=== PATIENT | male | born 1960 | race Caucasian/White ===

== ENCOUNTER 2020-07-03 10:13 | Outpatient (REF) | payer MEDICARE, MEDICAID, SELFPAY ==
[2020-07-03 11:12] LABS: MANUAL DIFF FLAG NO
[2020-07-03 11:22] LABS: Basophils Percent Auto 0.5 % (0-2); Eosinophils Absolute Auto 0.2 X10*3/uL (0.0-0.4); Eosinophils Percent Auto 2.4 % (0-4); Hemoglobin 14.6 g/dl (14.0-18.0); Imm Gran Abs Auto 0.01 X10*3/uL (0.00-0.03); Imm Gran Pct Auto 0.2 % (0.0-0.4); Lymphocytes Absolute Auto 1.6 X10*3/uL (1.2-4.9); Lymphocytes Percent Auto 26.5 % (20-40); Mean Corpuscular HGB Conc 32.4 g/dl (31.0-36.0); Mean Corpuscular Volume 92.6 fL (80-98); Monocytes Absolute Auto 0.6 X10*3/uL (0.1-1.2); Monocytes Percent Auto 10.1 % (2-11); Neutrophils Absolute Auto 3.7 X10*3/uL (2.0-8.3); Neutrophils Percent Auto 60.3 % (45-73); Platelet Count 279 X10*3/uL (160-400); Red Blood Count 4.86 X10*6/uL (4.60-5.80); Red Cell Distribution Width 12.7 % (11.0-16.0); White Blood Count 6.2 X10*3/uL (4.8-10.8)
[2020-07-03 11:36] LABS: Estimated Average Glucose 160 mg/dL; Hemoglobin A1c % 7.2 %
[2020-07-03 12:08] LABS: Alanine Aminotransferase 12 U/L (0-40); Albumin Level 4.6 g/dL (3.5-5.0); Alkaline Phosphatase 51 U/L (39-117); Anion Gap 12 (12-20); Aspartate Amino Transferase 13 U/L (5-37); Bilirubin Total 0.6 mg/dL (0.0-1.0); Blood Urea Nitrogen 15 mg/dL (9-16); Calcium 9.4 mg/dL (8.4-10.2); Carbon Dioxide 29 mmol/L (22-29); Chloride 101 mmol/L (96-108); Cholesterol 210 mg/dL; Estimated Glomerular Filt Rate > 60; Glucose Fasting 114 mg/dL (60-99); HDL Cholesterol 56 mg/dL; LDL Cholesterol Calculated 125 mg/dl; Potassium 4.4 mmol/L (3.3-5.1); Sodium 138 mmol/L (135-145); Total Protein 8.2 g/dL (6.5-8.0); Triglycerides 146 mg/dL
[2020-07-03 12:15] LABS: Creatinine Urine 78.24 mg/dL; Microalbum/Creatinine Ratio Ur 28.1 ug/mg cr
== END 2020-07-03 10:14 | disposition home or self-care (01) ==
LOC: HO.HMGCLDS 10:13
PROVIDERS: PCP Internal Medicine; Visit Provider Internal Medicine
DX: Z00.00 Encounter for general adult medical examination without abnormal findings (principal); E11.9 Type 2 diabetes mellitus without complications
CPT/HCPCS: 36415; 80053; 80061; 82043; 83036; 85025

== ENCOUNTER → 2021-01-17 13:53 | Outpatient (BNVA) | payer MEDICARE, MEDICAID, SELFPAY | PROVIDERS: PCP Internal Medicine; Visit Provider Dietitian, Registered | DX: E11.69 Type 2 diabetes mellitus with other specified complication (principal); E66.9 Obesity, unspecified; F81.9 Developmental disorder of scholastic skills, unspecified | CPT/HCPCS: 97803 ==

== ENCOUNTER → 2021-02-28 13:38 | Outpatient (BNVA) | payer MEDICARE, MEDICAID, SELFPAY | PROVIDERS: PCP Internal Medicine; Visit Provider Dietitian, Registered | DX: E11.69 Type 2 diabetes mellitus with other specified complication (principal); E66.9 Obesity, unspecified; F81.9 Developmental disorder of scholastic skills, unspecified | CPT/HCPCS: 97803 ==

== ENCOUNTER → 2021-05-01 13:19 | Outpatient (BNVA) | payer MEDICARE, MEDICAID, SELFPAY | PROVIDERS: PCP Internal Medicine; Visit Provider Dietitian, Registered | DX: E11.69 Type 2 diabetes mellitus with other specified complication (principal); E66.9 Obesity, unspecified; Z68.33 Body mass index [BMI] 33.0-33.9, adult; F81.9 Developmental disorder of scholastic skills, unspecified; Z71.3 Dietary counseling and surveillance | CPT/HCPCS: 97803 ==

== ENCOUNTER 2021-06-08 07:43 | Outpatient (REF) | payer MEDICARE, MEDICAID, SELFPAY ==
[2021-06-08 08:08] LABS: MANUAL DIFF FLAG NO
[2021-06-08 09:29] LABS: Basophils Percent Auto 0.5 % (0-2); Eosinophils Absolute Auto 0.1 X10*3/uL (0.0-0.4); Eosinophils Percent Auto 2.4 % (0-4); Hematocrit 44.5 % (42.0-52.0); Hemoglobin 14.2 g/dl (14.0-18.0); Imm Gran Abs Auto 0.01 X10*3/uL (0.00-0.03); Imm Gran Pct Auto 0.2 % (0.0-0.4); Lymphocytes Absolute Auto 1.5 X10*3/uL (1.2-4.9); Mean Corpuscular HGB Conc 31.9 g/dl (31.0-36.0); Mean Corpuscular Hemoglobin 29.6 pg (27.0-33.0); Mean Corpuscular Volume 92.9 fL (80.0-98.0); Mean Platelet Volume 10.7 fL (9.4-12.4); Monocytes Absolute Auto 0.7 X10*3/uL (0.1-1.2); Neutrophils Absolute Auto 3.1 x10*3/uL (2.0-8.3); Neutrophils Percent Auto 55.9 % (45-73); Platelet Count 251 X10*3/uL (160-400); Red Blood Count 4.79 X10*6/uL (4.60-5.80); Red Cell Distribution Width 12.2 % (11.0-16.0); White Blood Count 5.5 X10*3/uL (4.8-10.8)
[2021-06-08 09:37] LABS: Estimated Average Glucose 289 mg/dL; Hemoglobin A1c % 11.7 %
[2021-06-08 10:06] LABS: Alanine Aminotransferase 25 U/L (0-40); Albumin Level 4.3 g/dL (3.5-5.0); Alkaline Phosphatase 53 U/L (39-117); Anion Gap 12 (12-20); Aspartate Amino Transferase 15 U/L (5-37); Bilirubin Total 0.6 mg/dL (0.0-1.0); Blood Urea Nitrogen 10 mg/dL (9-16); Calcium 9.6 mg/dL (8.4-10.2); Carbon Dioxide 30 mmol/L (22-29); Chloride 96 mmol/L (96-108); Cholesterol 188 mg/dL; Estimated Glomerular Filt Rate > 60; Glucose Fasting 286 mg/dL (60-99); HDL Cholesterol 60 mg/dL; LDL Cholesterol Calculated 113 mg/dl; Sodium 133 mmol/L (135-145); Total Protein 7.7 g/dL (6.5-8.0); Triglycerides 75 mg/dL
[2021-06-08 10:15] LABS: Prostate Specific Antigen Scr 1.18 ng/mL (<0.05-4.0); Thyroid Stimulating Hormone 2.08 uIU/mL (0.32-4.0)
== END 2021-06-08 07:44 | disposition home or self-care (01) ==
LOC: HO.LAB 07:43
PROVIDERS: PCP Internal Medicine; Visit Provider Internal Medicine
DX: Z00.00 Encounter for general adult medical examination without abnormal findings (principal); Z13.0 Encounter for screening for diseases of the blood and blood-forming organs and certain disorders involving the immune mechanism; Z12.5 Encounter for screening for malignant neoplasm of prostate; R35.1 Nocturia; E11.9 Type 2 diabetes mellitus without complications
CPT/HCPCS: 36415; 80053; 80061; 83036; 84153; 84443; 85025

== ENCOUNTER 2021-06-14 14:00 | Outpatient (REF) | payer MEDICARE, MEDICAID, SELFPAY ==
--- NOTE | ~2021-06-14 | XR_ITS ---
EXAMINATION: XR CHEST CLINICAL INFORMATION: Other specified symptoms and signs COMPARISON: Chest x-ray 07/14/2018 TECHNIQUE: Frontal view of the chest was obtained. FINDINGS: Cardiac silhouette is normal in size. The lungs are well aerated. There is no lobar consolidation. No pleural effusion or pneumothorax. No gross osseous abnormality. XR/XR chest 1V IMPRESSION: Stable examination demonstrating no acute pulmonary pathology.
== END 2021-06-14 14:01 | disposition home or self-care (01) ==
LOC: HO.XRAY 14:00
PROVIDERS: PCP Internal Medicine; Visit Provider Internal Medicine
DX: R09.89 Other specified symptoms and signs involving the circulatory and respiratory systems (principal)
CPT/HCPCS: 71045

== ENCOUNTER 2021-10-08 06:02 | Outpatient (REF) | payer MEDICARE, MEDICAID, SELFPAY ==
[2021-10-08 06:27] LABS: MANUAL DIFF FLAG NO
[2021-10-08 06:51] LABS: Basophils Percent Auto 0.2 % (0-2); Eosinophils Absolute Auto 0.1 X10*3/uL (0.0-0.4); Eosinophils Percent Auto 2.2 % (0-4); Hematocrit 44.4 % (42.0-52.0); Hemoglobin 14.5 g/dl (14.0-18.0); Imm Gran Abs Auto 0.03 X10*3/uL (0.00-0.03); Imm Gran Pct Auto 0.5 % (0.0-0.4); Lymphocytes Absolute Auto 1.9 X10*3/uL (1.2-4.9); Lymphocytes Percent Auto 32.3 % (20-40); Mean Corpuscular HGB Conc 32.7 g/dl (31.0-36.0); Mean Corpuscular Hemoglobin 30.5 pg (27.0-33.0); Mean Corpuscular Volume 93.5 fL (80.0-98.0); Monocytes Absolute Auto 0.9 X10*3/uL (0.1-1.2); Monocytes Percent Auto 14.3 % (2-11); Neutrophils Percent Auto 50.5 % (45-73); Platelet Count 260 X10*3/uL (160-400); Red Blood Count 4.75 X10*6/uL (4.60-5.80); Red Cell Distribution Width 12.8 % (11.0-16.0); White Blood Count 5.9 X10*3/uL (4.8-10.8)
[2021-10-08 07:05] LABS: Estimated Average Glucose 272 mg/dL; Hemoglobin A1c % 11.1 %
[2021-10-08 07:14] LABS: Alanine Aminotransferase 29 U/L (0-40); Albumin Level 4.5 g/dL (3.5-5.0); Alkaline Phosphatase 55 U/L (39-117); Anion Gap 13 (12-20); Aspartate Amino Transferase 18 U/L (5-37); Bilirubin Total 0.5 mg/dL (0.0-1.0); Blood Urea Nitrogen 19 mg/dL (9-16); Calcium 9.3 mg/dL (8.4-10.2); Carbon Dioxide 30 mmol/L (22-29); Chloride 96 mmol/L (96-108); Cholesterol 245 mg/dL; Estimated Glomerular Filt Rate > 60; Glucose Fasting 295 mg/dL (60-99); HDL Cholesterol 57 mg/dL; LDL Cholesterol Calculated 165 mg/dl; Potassium 4.9 mmol/L (3.3-5.1); Sodium 134 mmol/L (135-145); Triglycerides 117 mg/dL
[2021-10-08 07:37] LABS: Thyroid Stimulating Hormone 3.03 uIU/mL (0.32-4.0)
== END 2021-10-08 06:03 | disposition home or self-care (01) ==
LOC: HO.LAB 06:02
PROVIDERS: PCP Internal Medicine; Visit Provider Internal Medicine
DX: Z00.00 Encounter for general adult medical examination without abnormal findings (principal); E03.9 Hypothyroidism, unspecified; E11.9 Type 2 diabetes mellitus without complications
CPT/HCPCS: 36415; 80053; 80061; 83036; 84443; 85025

== ENCOUNTER → 2021-12-12 13:02 | Outpatient (BNVA) | payer MEDICARE, MEDICAID, SELFPAY | PROVIDERS: PCP Internal Medicine; Visit Provider Dietitian, Registered | DX: E11.69 Type 2 diabetes mellitus with other specified complication (principal); E66.9 Obesity, unspecified; F81.9 Developmental disorder of scholastic skills, unspecified | CPT/HCPCS: 97803 ==

== ENCOUNTER → 2022-04-04 14:00 | Outpatient (BNVA) | payer MEDICARE, MEDICAID, SELFPAY | PROVIDERS: PCP Internal Medicine; Visit Provider Internal Medicine Endocrinology, Diabetes & Metabolism | DX: E11.69 Type 2 diabetes mellitus with other specified complication (principal); E66.9 Obesity, unspecified; E78.5 Hyperlipidemia, unspecified; Z68.32 Body mass index [BMI] 32.0-32.9, adult; Z79.4 Long term (current) use of insulin; Z79.52 Long term (current) use of systemic steroids; Z79.899 Other long term (current) drug therapy | CPT/HCPCS: 82947; 83036; 99202 ==

== ENCOUNTER → 2022-07-04 13:56 | Outpatient (BNVA) | payer MEDICARE, MEDICAID, SELFPAY | PROVIDERS: PCP Internal Medicine; Visit Provider Internal Medicine Endocrinology, Diabetes & Metabolism | DX: E11.9 Type 2 diabetes mellitus without complications (principal) | CPT/HCPCS: 82947; 83036; 99212 ==

== ENCOUNTER → 2022-09-10 13:25 | Outpatient (BNVA) | payer MEDICARE, MEDICAID, SELFPAY | PROVIDERS: PCP Internal Medicine; Visit Provider Registered Nurse Diabetes Educator | DX: E11.69 Type 2 diabetes mellitus with other specified complication (principal); E66.9 Obesity, unspecified | CPT/HCPCS: 99211 ==

== ENCOUNTER 2022-09-22 14:05 | Outpatient (AMB) | payer MEDICARE, MEDICAID, SELFPAY ==
--- NOTE | 2022-09-22 14:07 | MHC.OFFVIS ---
Intake Vital Signs 09/22/22 14:08 Height 5 ft 7 in Weight 213 lb 13.574 oz BMI 33.5 BP 142/80 H Blood Pressure Location Lt brachial Position Sitting Pulse 101 H Pulse Source Pulse Oximeter Pulse Oximetry (%) 88 L Oxygen Delivery Method Room Air Intake Visit Reasons: DM Intake Note: Patient present today to follow up on Type 2 Diabetes Mellitus. Patient receives DME supplies through: Pharmacy Last Diabetic Eye exam: 04/18/2022 Last Podiatry Visit: Does not see a Double Cut Off Saw Operator Random Glucose: 164 mg/dl HgA1C: 12.1% 07/04/2022 Director Of Email Marketing Required: No Allergies No Known Allergies Allergy (Unknown, Verified 09/22/22 14:11) NOT APPLICABLE HPI HPI Comments History of Present Illness Details 62 YO M who is seen in consultation for T2DM at the request of PCP. Patient is not medically competent as accompanied by his sister and navigator Initially diagnosed with T2DM in 10 yrs . No seen endo before Was initially started on treatment with metformin. Current regimen metformin 1000 mg BID Actos 45 mg QD Basaglar 50 units Humalog correction for point care > 200 6 units, >250 8 units and>300 10 units Aleah download shows sensors active 77% of time. Average glucose is 251 with G mi of 9.3% and variability 21.5%. Glucose is in target range 6% of the time with 51% hyperglycemia and 43% very hyperglycemic and no hypoglycemia No Reports low sugars . Most recent A1C [], [down] from prior [] on []. Family history of T2DM in parents Type 2 DM . Has eyes checked yearly, last eye exam 04/2023 , denies retinopathy. Denies neuropathy, not sees podiatry. Denies nephropathy, on PENNY/ARB. . Has HLD, Not on statin. Denies CAD. Not Had diabetes education. [facility] Medical History Cognitive developmental delay COPD (chronic obstructive pulmonary disease) Diabetes mellitus Obesity Type 2 diabetes mellitus with obesity Surgical History No pertinent past surgical history Family History Mother No problems noted. Father No problems noted. Social History Housing: House Patient Tobacco Use Status: Former Tobacco user Tobacco use type: Cigarette e-Cigarette/Vaping Use: Never Used Second Hand Smoke Exposure: No service: No Current occupational status: disabled Cognitive needs: Yes Hearing needs: No Vision needs: No Physical Exam Vital Signs: Last Vital Signs Pulse 101 H 09/22/22 14:08 BP 142/80 H 09/22/22 14:08 Pulse Ox 88 L 09/22/22 14:08 Oxygen Delivery Method Room Air 09/22/22 14:08 BMI result Body Mass Index 33.5 Absence of Cushingoid features. Absence of acromegalic features. Neck exam reveals nl size thyroid about 15 gms. No thyroid nodules palpable. No carotid bruits present. Lungs CTA. Heart S1 S2, Reg R/R. No M/R/ G. Skin exam reveals absence of vitiligo or acanthosis nigricans. Abdominal exam reveals Soft NT/ND with NA BS. No organomegaly present. Neck Other: . Extrem Other: Visual exam of foot performed. No ulcerations or open lesions. No onchomycosis, no callouses.Pulses 2 + distally Sensation intact to monofilament exam. Vibratory sensation sensed is intact with 128 Hz tuning fork Assessment & Plan Assessment & Plan (1) Diabetes mellitus: Comment: same meds Code(s): E11.9 - Type 2 diabetes mellitus without complications Plan: This is 61-year-old male with history of type 2 diabetes being treated with metformin, Actos, basal and regular insulin with poor glycemic control and no known microvascular or macrovascular complications Plan is increase the Basaglar to 60 units and will start Trulicity 0.75 mg q.week and titrate as tolerated. If there is not adequate response to increase the doses of Trulicity, we may need to tighten the scale of Humalog before meals. Patient should also follow-up with the para educator. Will also recheck lipid profile and microalbumin to creatinine ratio. I went over side effects of Trulicity with the patient's sister including but not limited to nausea, vomiting and rare risk of pancreatitis. Orders: Orders Lipid Panel Today E11.9 - Type 2 diabetes mellitus without complications Microalbumin, Random (w Creat) Today E11.9 - Type 2 diabetes mellitus without complications Medications: New dulaglutide (Trulicity) 0.75 mg (0.5 mL) subcut QWEEK 2 mL 5RF Changed From insulin glargine (Basaglar KwikPen U-100 Insulin) 50 units (0.5 mL) subcut DAILY 15 mL 7RF E11.69 - Type 2 diabetes mellitus with other specified complication, E66.9 - Obesity, unspecified To insulin glargine (Basaglar KwikPen U-100 Insulin) 60 units (0.6 mL) subcut DAILY 45 mL 7RF E11.69 - Type 2 diabetes mellitus with other specified complication, E66.9 - Obesity, unspecified Coding Level of Care Code Est Pt Level 4 (93660) Diagnoses Diabetes mellitus E11.9
[2022-09-22 14:08] VITALS: BP 142/80; PULSE 101; O2SAT 88; BMI 33.5
[2022-09-22 14:19] LABS: Glucose, Whole Blood 164 mg/dL (60-115)
== END 2022-09-23 16:53 | disposition home or self-care (01) ==
PROVIDERS: PCP Internal Medicine; Visit Provider Internal Medicine Endocrinology, Diabetes & Metabolism
DX: E11.65 Type 2 diabetes mellitus with hyperglycemia (principal)
CPT/HCPCS: 99214

== ENCOUNTER → 2022-09-22 14:05 | Outpatient (BNVA) | payer MEDICARE, MEDICAID, SELFPAY | PROVIDERS: Visit Provider Internal Medicine Endocrinology, Diabetes & Metabolism | DX: E11.9 Type 2 diabetes mellitus without complications (principal); Z79.4 Long term (current) use of insulin | CPT/HCPCS: 82947; 99212 ==

== ENCOUNTER 2022-11-25 11:47 | Outpatient (AMB) | payer MEDICARE, MEDICAID, SELFPAY ==
[2022-11-25 11:52] VITALS: BP 148/84; PULSE 95; O2SAT 92; BMI 34.0
--- NOTE | 2022-11-25 11:52 | A.OFFPC_ITS ---
Vital Signs 11/25/22 11:52 Height 5 ft 7 in Weight 217 lb BMI 34.0 BP 148/84 H Blood Pressure Location Lt brachial Position Sitting Pulse 95 Pulse Source Pulse Oximeter Pulse Oximetry (%) 92 Oxygen Delivery Method Room Air Intake Visit Reasons: 6 month f/u [employer] Law Clerk: Present Accompanied by: Sister Allergies No Known Allergies Allergy (Unknown, Verified 11/25/22 11:52) NOT APPLICABLE Tobacco use date assessed: 05/23/22 Dental Screening Dental Screen Date: 11/25/22 Did you have a dental visit in the last 12 months?: Yes Did you have a dental problem in the last 6 months where you did not have access to dental care?: No Was dental information given to patient?: Patient has dentist HPI 6 month f/u HPI Details diabetes and HTN; cognitive deay; stable on rx; due for labs [facility] Medical History (Updated 11/25/22 @ 13:38 by Jose A Alves MD) Obesity Type 2 diabetes mellitus with obesity COPD (chronic obstructive pulmonary disease) Cognitive developmental delay Diabetes mellitus Surgical History No pertinent past surgical history Family History Mother No problems noted. Father No problems noted. Social History Housing: House Patient Tobacco Use Status: Former Tobacco user Tobacco use type: Cigarette e-Cigarette/Vaping Use: Never Used Second Hand Smoke Exposure: No service: No Current occupational status: disabled Cognitive needs: Yes Hearing needs: No Vision needs: No Questionnaire PHQ-9 Over the last 2 weeks, how often have you been bothered by any of the following problems? 1. Little interest or pleasure in doing things: not at all 2. Feeling down, depressed, or hopeless: several days 3. Trouble falling or staying asleep, or sleeping too much: not at all 4. Feeling tired or having little energy: not at all 5. Poor appetite or overeating: not at all 6. Feeling bad about yourself - or that you are a failure or have let yourself or your family down: not at all 7. Trouble concentrating on things, such as reading the newspaper or watching television: not at all 8. Moving or speaking so slowly that other people could have noticed. Or the opposite - being so fidgety or restless that you have been moving around a lot more than usual: not at all 9. Thoughts that you would be better off or of hurting yourself in some way: not at all Total score: 1 Depression Screening Interpretation: Negative 21065 - PHQ-9 Billing: Yes Source: Developed by Drs. Wilver Ugalde, David Finch and colleagues, with an educational foreign from [employer]. Thrive Questionnaire Date Thrive assessed: 11/25/22 I am a: Patient What is your living situation today?: I have a steady place to live Within the past 12 months, did the food you bought not last and you didn't have the money to get more?: Never true Within the past 12 months, did you worry whether your food would run out before you got money to buy more?: Never true Do you have trouble paying for medicines?: No Do you have trouble getting transportation to medical appointments?: No Do you have trouble paying your heating and electricity bill?: No Do you have trouble taking care of your child, family member or friend?: No Do you have trouble with day-to-day activities such as bathing, preparing meals, shopping, managing finances, etc.?: No Are you currently unemployed and looking for a job?: No Are you interested in more education?: No Please select the resources that you would like help with: None AUDIT C Alcohol Use Questionnaire (AUDIT-C) 1. How often do you have a drink containing alcohol?: Never 3. How often do you have six or more drinks on one occasion?: Never Total Score: 0 Score Reviewed/Action Taken: Yes VERONIQUE-7 AMB Questionnaire VERONIQUE-7 Date VERONIQUE - 7 assessed: 05/23/22 Source: Developed by Drs. Wilver Ugalde, David Finch and colleagues, with an educational foreign from [employer]. Review of Systems Const Denies chills, Denies headache(s) and Denies weight loss ENT Denies headache(s) Card Denies chest pain, Denies syncope, Denies irregular heart rhythm and Denies dyspnea Resp Denies chest congestion, Denies cough and Denies dyspnea GI Denies abdominal pain, Denies change in stool character, Denies nausea and Denies vomiting Musc Denies deformity and Denies joint swelling Neuro Denies syncope and Denies headache(s) Physical exam (Primary Care) Vital Signs: Last Vital Signs Pulse 95 11/25/22 11:52 BP 148/84 H 11/25/22 11:52 Pulse Ox 92 11/25/22 11:52 Oxygen Delivery Method Room Air 11/25/22 11:52 BMI result Body Mass Index 34.0 Tobacco/Smoking Status: Tobacco use Status Tobacco use date assessed 05/23/22 11/25/22 11:53 Patient Tobacco Use Status Former Tobacco user 11/25/22 11:53 Tobacco use type Cigarette 11/25/22 11:53 e-Cigarette/Vaping Use Never Used 11/25/22 11:53 PHQ-9: PHQ-9 Score PHQ-9: Total score 1 11/25/22 11:53 Depression Screening Interpretation: Negative Thrive Assessment: Date of Thrive Assessment Date Thrive assessed 11/25/22 11/25/22 11:53 Const General: cooperative, comfortable, no acute distress and alert Neck Neck: Yes no lymphadenopathy Thyroid: Thyroid normal Resp Effort & Inspection: normal respiratory effort Auscultation: clear to auscultation bilaterally Percussion: percussion normal Cardio Jugular venous distension: no JVD Palpation: normal PMI Rate: regular rate Rhythm: regular rhythm Heart sounds: S1 normal heart sound present and S2 normal heart sound present GI Inspection: Yes normal to inspection Palpation (GI): No hepatosplenomegaly present Skin General skin exam: no rashes or lesions noted Extrem General: Yes no clubbing, cyanosis or edema Assessment and Plan Assessment & Plan (1) Hypertension: Code(s): I10 - Essential (primary) hypertension Plan: stable; same rx (2) Cognitive developmental delay: Code(s): F81.9 - Developmental disorder of scholastic skills, unspecified Plan: stable; same rx (3) Type 2 diabetes mellitus with obesity: Code(s): E11.69 - Type 2 diabetes mellitus with other specified complication; E66.9 - Obesity, unspecified Plan: stable; do labs Coding Level of Care Code Est Pt Level 4 (59147) Diagnoses Hypertension I10 Cognitive developmental delay F81.9 Type 2 diabetes mellitus with obesity E11.69; E66.9
== END 2022-11-25 12:09 | disposition home or self-care (01) ==
PROVIDERS: PCP Internal Medicine; Visit Provider Internal Medicine
DX: I10 Essential (primary) hypertension (principal); E11.69 Type 2 diabetes mellitus with other specified complication; E66.9 Obesity, unspecified; Z68.34 Body mass index [BMI] 34.0-34.9, adult; F81.9 Developmental disorder of scholastic skills, unspecified
CPT/HCPCS: 99214

== ENCOUNTER 2023-01-03 07:27 | Outpatient (REF) | payer MEDICARE, MEDICAID, SELFPAY ==
[2023-01-03 08:46] LABS: Cholesterol 204 mg/dL (<200); HDL Cholesterol 53 mg/dL (>40); LDL Cholesterol Calculated 134 mg/dL (<100); Triglycerides 86 mg/dL (<150)
[2023-01-03 09:26] LABS: Creatinine Urine 143.46 mg/dL; Microalbum/Creatinine Ratio Ur 59.2 ug/mg cr (<30)
== END 2023-01-03 07:28 | disposition home or self-care (01) ==
LOC: HO.LAB 07:27
PROVIDERS: PCP Internal Medicine; Visit Provider Internal Medicine Endocrinology, Diabetes & Metabolism
DX: E11.9 Type 2 diabetes mellitus without complications (principal)
CPT/HCPCS: 36415; 80061; 82043; 82570

== ENCOUNTER 2023-01-06 14:00 | Outpatient (AMB) | payer MEDICARE, MEDICAID, SELFPAY ==
[2023-01-06 14:03] VITALS: BP 156/84; PULSE 105; BMI 35.4
--- NOTE | 2023-01-06 14:03 | MHC.OFFVIS ---
Intake Vital Signs 01/06/23 14:03 Height 5 ft 7 in Weight 225 lb 15.581 oz BMI 35.4 BP 156/84 H Blood Pressure Location Lt brachial Position Sitting Pulse 105 H Pulse Source Pulse Oximeter Intake Visit Reasons: f/u Type 2 DM/Confirmed Intake Note: Patient present today to follow up on Type 2 Diabetes Mellitus. Patient receives DME supplies through: [facility] Last Diabetic Eye exam: 04/17/2022 Last Podiatry Visit: Random Glucose: 189]]]]mg/dl HgA1C: 9.0% Special Needs Nanny Required: No Accompanied by: Sister Allergies No Known Allergies Allergy (Unknown, Verified 01/06/23 14:14) NOT APPLICABLE HPI HPI Comments History of Present Illness Details 62 YO M who is seen in consultation for T2DM at the request of PCP. Patient is not medically competent as accompanied by his sister and navigator Initially diagnosed with T2DM in 10 yrs . No seen endo before Was initially started on treatment with metformin. Current regimen metformin 1000 mg BID Actos 45 mg QD Basaglar 60 units Humalog correction for point care > 200 6 units, >250 8 units and>300 10 units not taking Trulicity 0.75 mg Qwkly Aleah download shows sensors active 49% of time. Average glucose is 211 and variability 24.3%. Glucose is in target range 27% of the time with 55% hyperglycemia and 18% very hyperglycemic and no hypoglycemia Pattern shows increased glucoses throughout the day with elevation post-lunch No Reports low sugars . Most recent A1C [], [down] from prior [] on []. Family history of T2DM in parents Type 2 DM . Has eyes checked yearly, last eye exam 04/2023 , denies retinopathy. Denies neuropathy, not sees podiatry. Denies nephropathy, on PENNY/ARB. . Has HLD, Not on statin. Denies CAD. Not Had diabetes education. [facility] Medical History (Updated 11/25/22 @ 13:38 by Jose A Alves MD) Obesity Type 2 diabetes mellitus with obesity COPD (chronic obstructive pulmonary disease) Cognitive developmental delay Diabetes mellitus Surgical History No pertinent past surgical history Family History Mother No problems noted. Father No problems noted. Social History Housing: House Patient Tobacco Use Status: Former Tobacco user Tobacco use type: Cigarette e-Cigarette/Vaping Use: Never Used Second Hand Smoke Exposure: No service: No Current occupational status: disabled Cognitive needs: Yes Hearing needs: No Vision needs: No Physical Exam Vital Signs: Last Vital Signs Pulse 105 H 01/06/23 14:03 BP 156/84 H 01/06/23 14:03 BMI result Body Mass Index 35.4 Absence of Cushingoid features. Absence of acromegalic features. Neck exam reveals nl size thyroid about 15 gms. No thyroid nodules palpable. No carotid bruits present. Lungs CTA. Heart S1 S2, Reg R/R. No M/R/ G. Skin exam reveals absence of vitiligo or acanthosis nigricans. Abdominal exam reveals Soft NT/ND with NA BS. No organomegaly present. Neck Other: . Extrem Other: Visual exam of foot performed. No ulcerations or open lesions. No onchomycosis, no callouses.Pulses 2 + distally Sensation intact to monofilament exam. Vibratory sensation sensed is intact with 128 Hz tuning fork Results Reviewed Results Reviewed: 01/06/23 14:09 Glucose, Whole Blood Routine Laboratory Last Values Glucose (Clinic) 189 mg/dL (60-115) H 01/06/23 14:09 Assessment & Plan Assessment & Plan (1) Diabetes mellitus: Comment: same meds Code(s): E11.9 - Type 2 diabetes mellitus without complications Plan: This is 62-year-old male with history of type 2 diabetes being treated with metformin, Actos, basal and regular insulin with poor glycemic control and no known microvascular or macrovascular complications Plan is increase the Basaglar to 70 units and increase Trulicity to 1.5 mg q.week and titrate as tolerated. Will have patient take affects amount of insulin Humalog 10 units before lunch.. Patient should also follow-up with the life skills educator. Will start atorvastatin 10 mg q.d. and recheck lipid profile in 2 months. Could consider starting an SGLT 2 inhibitor in future should she is Jardiance or Farxiga for renal protection and micro albuminuria Orders: Orders Lipid Panel 2 Months E11.9 - Type 2 diabetes mellitus without complications Medications: New dulaglutide (Trulicity) 1.5 mg (0.5 mL) subcut QWEEK 2 mL 5RF atorvastatin 10 mg PO BEDTIME 30 tabs 5RF Changed From insulin glargine (Basaglar KwikPen U-100 Insulin) 60 units (0.6 mL) subcut DAILY 45 mL 7RF E11.69 - Type 2 diabetes mellitus with other specified complication, E66.9 - Obesity, unspecified To insulin glargine (Basaglar KwikPen U-100 Insulin) 70 units (0.7 mL) subcut DAILY 45 mL 7RF E11.69 - Type 2 diabetes mellitus with other specified complication, E66.9 - Obesity, unspecified Discontinued dulaglutide (Trulicity) Discontinued Reason: Doctor's Order 0.75 mg (0.5 mL) subcut QWEEK 2 mL 5RF Coding Level of Care Code Est Pt Level 4 (61477) Diagnoses Diabetes mellitus E11.9
[2023-01-06 14:14] LABS: Glucose, Whole Blood 189 mg/dL (60-115)
== END 2023-01-06 14:22 | disposition home or self-care (01) ==
PROVIDERS: PCP Internal Medicine; Visit Provider Internal Medicine Endocrinology, Diabetes & Metabolism
DX: E11.69 Type 2 diabetes mellitus with other specified complication (principal); E66.9 Obesity, unspecified; E11.9 Type 2 diabetes mellitus without complications
CPT/HCPCS: 99214

== ENCOUNTER → 2023-01-06 14:00 | Outpatient (BNVA) | payer MEDICARE, MEDICAID, SELFPAY | PROVIDERS: PCP Internal Medicine; Visit Provider Internal Medicine Endocrinology, Diabetes & Metabolism | DX: E11.9 Type 2 diabetes mellitus without complications (principal) | CPT/HCPCS: 82947; 83036; 99212 ==

== ENCOUNTER 2023-01-27 13:28 | Outpatient (AMB) | payer MEDICARE, MEDICAID, SELFPAY ==
--- NOTE | 2023-01-27 13:53 | A.OFFVIS_ITS ---
Intake Intake Visit Reasons: DM-CONFIRMED It Project Coordinator Required: No Accompanied by: Sister Allergies No Known Allergies Allergy (Unknown, Verified 01/06/23 14:14) NOT APPLICABLE HPI Comprehensive Diabetes Asmnt Most Recent Diabetes Results: Hemoglobin A1c 6.9 % 08/24/18 Microalb/Creat Ratio 59.2 ug/mg cr (<30) H 01/03/23 Cholesterol 204 mg/dL (<200) H 01/03/23 HDL Cholesterol 53 mg/dL (>40) 01/03/23 Triglycerides 86 mg/dL (<150) 01/03/23 Creatinine 0.95 mg/dL (0.5-1.4) 10/08/21 Blood Urea Nitrogen 19 mg/dL (9-16) H 10/08/21 Sodium 134 mmol/L (135-145) L 10/08/21 Potassium 4.9 mmol/L (3.3-5.1) 10/08/21 Chloride 96 mmol/L (96-108) 10/08/21 Carbon Dioxide 30 mmol/L (22-29) H 10/08/21 Calcium 9.3 mg/dL (8.4-10.2) 10/08/21 AST 18 U/L (5-37) 10/08/21 ALT 29 U/L (0-40) 10/08/21 Total Protein 8.0 g/dL (6.5-8.0) 10/08/21 Albumin 4.5 g/dL (3.5-5.0) 10/08/21 [facility] Medical History (Updated 11/25/22 @ 13:38 by Jose A Alves MD) Obesity Type 2 diabetes mellitus with obesity COPD (chronic obstructive pulmonary disease) Cognitive developmental delay Diabetes mellitus Surgical History No pertinent past surgical history Family History Mother No problems noted. Father No problems noted. Housing: House Patient Tobacco Use Status: Former Tobacco user Tobacco use type: Cigarette e-Cigarette/Vaping Use: Never Used Second Hand Smoke Exposure: No service: No Current occupational status: disabled Cognitive needs: Yes Hearing needs: No Vision needs: No Assessment & Plan Assessment & Plan (1) Type 2 diabetes mellitus with obesity: Code(s): E11.69 - Type 2 diabetes mellitus with other specified complication; E66.9 - Obesity, unspecified Plan: Personal Continuous Glucose Monitor: Patients CGM information reviewed Reviewed patient's sensor data: Hypoglycemia: ? 0% Hyperglycemia:? 60% Time in Range:? 40% Average glucose for the last 2 weeks?199 mg/dL, patient increase Trulicity from 0.75 mg to 1.5 mg approximately 2 weeks ago. Average glucose is improved from 211 mg/dL on 01/06/2023 Patient also has increased Basaglar 70 units daily Discussed with patient and his sister recommendations for increasing physical activity to approximately 30 minutes daily in order to improve glucose numbers. Currently patient only walks 30 minutes 2 times a week. Recommended to patient his history he increase Basaglar to 75 units daily If patient begins to experience episodes of hypoglycemia go back to Basaglar 70 units daily Reviewed with patient and his sister how to use rule of 15s to treat any hypoglycemia Reviewed how to interpret trend arrows Reminded patient that to check finger sticks if symptoms do not match sensor reading. Discussed lag time between finger stick and sensor data.? Patient able to insert sensor independently at home without issue.? Patient Instructions: Drop off patient's meter in 1 month for download, and review glucose levels Follow-up with Diabetes Education nurse in 4 month Coding Level of Care Code Est Pt Level 1 (55323) Diagnoses Type 2 diabetes mellitus with obesity E11.69; E66.9
== END 2023-01-27 14:24 | disposition home or self-care (01) ==
PROVIDERS: PCP Internal Medicine; Visit Provider Registered Nurse Diabetes Educator
DX: E11.69 Type 2 diabetes mellitus with other specified complication (principal); E66.9 Obesity, unspecified

== ENCOUNTER → 2023-01-27 13:28 | Outpatient (BNVA) | payer MEDICARE, MEDICAID, SELFPAY | PROVIDERS: PCP Internal Medicine; Visit Provider Registered Nurse Diabetes Educator | DX: E11.69 Type 2 diabetes mellitus with other specified complication (principal); E66.9 Obesity, unspecified; Z79.4 Long term (current) use of insulin | CPT/HCPCS: 99211 ==

== ENCOUNTER 2023-04-08 10:47 | Outpatient (AMB) | payer MEDICARE, MEDICAID, SELFPAY ==
[2023-04-08 10:52] VITALS: BP 130/76; PULSE 103; O2SAT 96; BMI 32.4
--- NOTE | 2023-04-08 10:52 | MHC.PC.OV ---
Vital Signs 04/08/23 10:52 Height 5 ft 7 in Weight 207 lb BMI 32.4 BP 130/76 Blood Pressure Location Lt brachial Position Sitting Pulse 103 H Pulse Source Pulse Oximeter Pulse Oximetry (%) 96 Oxygen Delivery Method Nasal Cannula Intake Visit Reasons: HDF, Severe COPD, Diabetes Toe Stapler Required: No Mortgage Loan Funder: Not Required per policy Accompanied by: Self / Same As Patient Allergies No Known Allergies Allergy (Unknown, Verified 04/08/23 10:52) NOT APPLICABLE Medication List - Last Reconciled 04/08/23 by Jose A Alves MD albuterol sulfate 2.5 mg (3 mL) inhalation Q4H PRN atorvastatin 10 mg PO BEDTIME blood sugar diagnostic (Vivid Logicuch Ultra Test strips) USE TO CHECK BLOOD SUGARS ONCE EVERY DAY blood sugar diagnostic (Vivid Logicuch Ultra Test strips) As directed twice a day blood-glucose meter (Vivid Logicuch Ultra2 Meter kit) As directed clonazepam 0.5 mg PO BID dulaglutide (Trulicity) 1.5 mg (0.5 mL) subcut QWEEK flash glucose scanning reader (Firmexyle Aleah 2 [place]) As directed flash glucose sensor (CrowdTwistStyle Aleah 2 Sensor kit) USE DIRECTED insulin glargine (Basaglar KwikPen U-100 Insulin) 70 units (0.7 mL) subcut DAILY lancets (RockeTalk Delica Lancets) As directed 3 twice a day lisinopril 10 mg PO DAILY metformin 1,000 mg PO BID 90 days nebulizers to use every 4 hours for shortness of breathe and wheezing pen needle, diabetic (BD Ultra-Fine Original Pen Needle) to use with insulin once a day pioglitazone 45 mg PO DAILY tamsulosin 0.4 mg PO BEDTIME Tobacco use date assessed: 04/08/23 Dental Screening Dental Screen Date: 04/08/23 Did you have a dental visit in the last 12 months?: Yes Did you have a dental problem in the last 6 months where you did not have access to dental care?: No Was dental information given to patient?: Patient has dentist HPI HDF, Severe COPD, Diabetes HPI Details was admitted to [facility] with COPD and now on oxygen; request pulmonary consult [facility] Medical History (Updated 11/25/22 @ 13:38 by Jose A Alves MD) Obesity Type 2 diabetes mellitus with obesity COPD (chronic obstructive pulmonary disease) Cognitive developmental delay Diabetes mellitus Surgical History No pertinent past surgical history Family History Mother No problems noted. Father No problems noted. Social History Housing: House Patient Tobacco Use Status: Former Tobacco user Tobacco use type: Cigarette e-Cigarette/Vaping Use: Never Used Second Hand Smoke Exposure: No service: No Current occupational status: disabled Cognitive needs: Yes Hearing needs: No Vision needs: No Questionnaire PHQ-9 Over the last 2 weeks, how often have you been bothered by any of the following problems? 1. Little interest or pleasure in doing things: not at all 2. Feeling down, depressed, or hopeless: several days 3. Trouble falling or staying asleep, or sleeping too much: not at all 4. Feeling tired or having little energy: not at all 5. Poor appetite or overeating: not at all 6. Feeling bad about yourself - or that you are a failure or have let yourself or your family down: not at all 7. Trouble concentrating on things, such as reading the newspaper or watching television: not at all 8. Moving or speaking so slowly that other people could have noticed. Or the opposite - being so fidgety or restless that you have been moving around a lot more than usual: not at all 9. Thoughts that you would be better off or of hurting yourself in some way: not at all Total score: 1 Depression Screening Interpretation: Negative Depression Screening Done: Yes 64314 - PHQ-9 Billing: Yes Source: Developed by Drs. Wilver Ugalde, nAdreea Poe, David Gregory and colleagues, with an educational foreign from [employer]. Thrive Questionnaire Date Thrive assessed: 04/08/23 I am a: Patient What is your living situation today?: I have a steady place to live Within the past 12 months, did the food you bought not last and you didn't have the money to get more?: Never true Within the past 12 months, did you worry whether your food would run out before you got money to buy more?: Never true Do you have trouble paying for medicines?: No Do you have trouble getting transportation to medical appointments?: No Do you have trouble paying your heating and electricity bill?: No Do you have trouble taking care of your child, family member or friend?: No Do you have trouble with day-to-day activities such as bathing, preparing meals, shopping, managing finances, etc.?: No Are you currently unemployed and looking for a job?: No Are you interested in more education?: No Please select the resources that you would like help with: None THRIVE Score: 0 AUDIT C Alcohol Use Questionnaire (AUDIT-C) 1. How often do you have a drink containing alcohol?: Never 3. How often do you have six or more drinks on one occasion?: Never Total Score: 0 Score Reviewed/Action Taken: Yes VERONIQUE-7 AMB Questionnaire VERONIQUE-7 Date VERONIQUE - 7 assessed: 04/08/23 Feeling nervous, anxious, or on edge: 0 = Not at all Not being able to stop or control worryin = Not at all Worrying too much about different things: 0 = Not at all Trouble relaxin = Not at all Being so restless that it is hard to sit still: 0 = Not at all Becoming easily annoyed or irritable: 0 = Not at all Feeling afraid as if something awful might happen: 0 = Not at all Total VERONIQUE-7 score (0-4 normal; 5-9 mild; 10-14 moderate; 15-21 severe): 0 Source: Developed by Drs. Wilver Ugalde, Andreea Poe, David Gregory and colleagues, with an educational foreign from [employer]. Review of Systems Const Denies chills, Denies headache(s) and Denies weight loss ENT Denies headache(s) Card Denies chest pain, Denies syncope, Denies irregular heart rhythm and Denies dyspnea Resp Denies chest congestion, Denies cough and Denies dyspnea GI Denies abdominal pain, Denies change in stool character, Denies nausea and Denies vomiting Musc Denies deformity and Denies joint swelling Neuro Denies syncope and Denies headache(s) Physical exam (Primary Care) Vital Signs: Last Vital Signs Pulse 103 H 04/08/23 10:52 BP 130/76 04/08/23 10:52 Pulse Ox 96 04/08/23 10:52 Oxygen Delivery Method Nasal Cannula 04/08/23 10:52 BMI result Body Mass Index 32.4 Tobacco/Smoking Status: Tobacco use Status Tobacco use date assessed 04/08/23 04/08/23 10:59 Patient Tobacco Use Status Former Tobacco user 04/08/23 10:59 Tobacco use type Cigarette 04/08/23 10:59 e-Cigarette/Vaping Use Never Used 04/08/23 10:59 PHQ-9: PHQ-9 Score PHQ-9: Total score 1 04/08/23 10:59 Depression Screening Interpretation: Negative Thrive Assessment: Date of Thrive Assessment Date Thrive assessed 04/08/23 04/08/23 10:59 Const General: cooperative, comfortable, no acute distress and alert Neck Neck: Yes no lymphadenopathy Thyroid: Thyroid normal Resp Effort & Inspection: normal respiratory effort Auscultation: clear to auscultation bilaterally Percussion: percussion normal Cardio Jugular venous distension: no JVD Palpation: normal PMI Rate: regular rate Rhythm: regular rhythm Heart sounds: S1 normal heart sound present and S2 normal heart sound present GI Inspection: Yes normal to inspection Palpation (GI): No hepatosplenomegaly present Skin General skin exam: no rashes or lesions noted Extrem General: Yes no clubbing, cyanosis or edema Assessment and Plan Assessment & Plan (1) Type 2 diabetes mellitus with obesity: Code(s): E11.69 - Type 2 diabetes mellitus with other specified complication; E66.9 - Obesity, unspecified Plan: stable; same rx (2) COPD exacerbation: Code(s): J44.1 - Chronic obstructive pulmonary disease with (acute) exacerbation Plan: same rx (3) Hypertension: Code(s): I10 - Essential (primary) hypertension Plan: stable; same rx Orders: Referrals Pulmonary Medicine Referral J44.1 - Chronic obstructive pulmonary disease with (acute) exacerbation Coding Level of Care Code Est Pt Level 4 (35491) Diagnoses Type 2 diabetes mellitus with obesity E11.69; E66.9 COPD exacerbation J44.1 Hypertension I10
== END 2023-04-08 11:09 | disposition home or self-care (01) ==
PROVIDERS: PCP Internal Medicine; Visit Provider Internal Medicine
DX: E11.69 Type 2 diabetes mellitus with other specified complication (principal); J44.1 Chronic obstructive pulmonary disease with (acute) exacerbation; I10 Essential (primary) hypertension
CPT/HCPCS: 99214

== ENCOUNTER 2023-05-05 07:36 | Outpatient (REF) | payer MEDICARE, MEDICAID, SELFPAY ==
[2023-05-05 07:59] LABS: MANUAL DIFF FLAG NO
[2023-05-05 08:33] LABS: Basophils Percent Auto 0.5 % (0-2); Eosinophils Absolute Auto 0.2 X10*3/uL (0.0-0.4); Eosinophils Percent Auto 2.5 % (0-4); Hematocrit 43.3 % (42.0-52.0); Hemoglobin 13.6 g/dl (14.0-18.0); Imm Gran Abs Auto 0.04 X10*3/uL (0.00-0.03); Imm Gran Pct Auto 0.5 % (0.0-0.4); Lymphocytes Absolute Auto 1.6 X10*3/uL (1.2-4.9); Lymphocytes Percent Auto 19.5 % (20-40); Mean Corpuscular HGB Conc 31.4 g/dl (31.0-36.0); Mean Corpuscular Hemoglobin 30.2 pg (27.0-33.0); Mean Corpuscular Volume 96.2 fL (80.0-98.0); Monocytes Absolute Auto 0.9 X10*3/uL (0.1-1.2); Monocytes Percent Auto 10.8 % (2-11); Neutrophils Absolute Auto 5.3 x10*3/uL (2.0-8.3); Neutrophils Percent Auto 66.2 % (45-73); Platelet Count 320 X10*3/uL (160-400); Red Cell Distribution Width 13.6 % (11.0-16.0)
[2023-05-05 08:43] LABS: Estimated Average Glucose 209 mg/dL; Hemoglobin A1c % 8.9 % (<6.0)
[2023-05-05 08:56] LABS: Alanine Aminotransferase 13 U/L (0-40); Albumin Level 4.1 g/dL (3.5-5.0); Alkaline Phosphatase 49 U/L (39-117); Anion Gap 10 (12-20); Aspartate Amino Transferase 12 U/L (5-37); Bilirubin Total 0.5 mg/dL (0.0-1.0); Blood Urea Nitrogen 15 mg/dL (9-16); Calcium 9.4 mg/dL (8.4-10.2); Carbon Dioxide 31 mmol/L (22-29); Chloride 97 mmol/L (96-108); Cholesterol 145 mg/dL (<200); Estimated Glomerular Filt Rate > 60; Glucose Fasting 282 mg/dL (60-99); HDL Cholesterol 51 mg/dL (>40); LDL Cholesterol Calculated 78 mg/dL (<100); Potassium 4.5 mmol/L (3.3-5.1); Sodium 133 mmol/L (135-145); Total Protein 8.3 g/dL (6.5-8.0); Triglycerides 81 mg/dL (<150)
[2023-05-05 08:58] LABS: Creatinine Urine 153.45 mg/dL
== END 2023-05-05 07:37 | disposition home or self-care (01) ==
LOC: HO.LAB 07:36
PROVIDERS: PCP Internal Medicine; Visit Provider Internal Medicine Endocrinology, Diabetes & Metabolism
DX: E11.69 Type 2 diabetes mellitus with other specified complication (principal); E11.65 Type 2 diabetes mellitus with hyperglycemia; E66.01 Morbid (severe) obesity due to excess calories; D64.9 Anemia, unspecified; N28.9 Disorder of kidney and ureter, unspecified; E78.5 Hyperlipidemia, unspecified
CPT/HCPCS: 36415; 80053; 80061; 82043; 82570; 83036; 85025

== ENCOUNTER 2023-05-07 14:34 | Outpatient (AMB) | payer MEDICARE, MEDICAID, SELFPAY ==
--- NOTE | 2023-05-07 14:35 | A.OFFVIS_ITS ---
Intake Vital Signs 05/07/23 14:36 Height 5 ft 7 in Weight 219 lb 5.759 oz BMI 34.4 BP 170/90 H Blood Pressure Location Lt brachial Position Sitting Pulse 124 H Pulse Source Pulse Oximeter Intake Visit Reasons: DM Intake Note: Patient presents today to follow up on D2MT. Last Diabetic Eye exam: 2022 Last Podiatry Visit:Doesn't have one Random Glucose: 329 mg/dl HgA1c: 8.9% 05/05/23 Senior Accountant Cpa Required: No Accompanied by: Sponsored Dependent Allergies No Known Allergies Allergy (Unknown, Verified 04/08/23 10:52) NOT APPLICABLE Medication List - Last Reconciled 05/07/23 by Wilver Lugo MD albuterol sulfate 2.5 mg (3 mL) inhalation Q4H PRN atorvastatin 10 mg PO BEDTIME blood sugar diagnostic (OneTouch Ultra Test strips) USE TO CHECK BLOOD SUGARS ONCE EVERY DAY blood sugar diagnostic (OneTouch Ultra Test strips) As directed twice a day blood-glucose meter (boldUnderline. llcuch Ultra2 Meter kit) As directed clonazepam 0.5 mg PO BID dulaglutide (Trulicity) 1.5 mg (0.5 mL) subcut QWEEK flash glucose scanning reader (Karmayle Aleah 2 [place]) As directed flash glucose sensor (WibkiStyle Aleah 2 Sensor kit) USE DIRECTED lancets (Celery Delica Lancets) As directed 3 twice a day Lantus Solostar U-100 Insulin (insulin glargine) 70 units (0.7 mL) subcut DAILY NS lisinopril 10 mg PO DAILY metformin 1,000 mg PO BID 90 days nebulizers to use every 4 hours for shortness of breathe and wheezing pen needle, diabetic (BD Ultra-Fine Original Pen Needle) to use with insulin once a day pioglitazone 45 mg PO DAILY tamsulosin 0.4 mg PO BEDTIME HPI HPI Comments History of Present Illness Details 62 YO M who is seen in consultation for T2DM at the request of PCP. Patient is not medically competent as accompanied by his sister and navigator Initially diagnosed with T2DM in 10 yrs . No seen endo before Was initially started on treatment with metformin. Current regimen metformin 1000 mg BID Actos 45 mg QD Basaglar 75 units Humalog correction for point care > 200 6 units, >250 8 units and>300 10 units not taking Trulicity 1.5 mg Qwkly Ran out of Aleah sensors and strips so was not checking No Reports low sugars . Most recent A1C [], [down] from prior [] on []. Family history of T2DM in parents Type 2 DM . Has eyes checked yearly, last eye exam 04/2023 , denies retinopathy. Denies neuropathy, not sees podiatry. Denies nephropathy, on PENNY/ARB. . Has HLD, Not on statin. Denies CAD. Not Had diabetes education. [facility] Medical History (Updated 11/25/22 @ 13:38 by Jose A Alves MD) Obesity Type 2 diabetes mellitus with obesity COPD (chronic obstructive pulmonary disease) Cognitive developmental delay Diabetes mellitus Surgical History No pertinent past surgical history Family History Mother No problems noted. Father No problems noted. Social History Housing: House Patient Tobacco Use Status: Former Tobacco user Tobacco use type: Cigarette e-Cigarette/Vaping Use: Never Used Second Hand Smoke Exposure: No service: No Current occupational status: disabled Cognitive needs: Yes Hearing needs: No Vision needs: No Physical Exam Vital Signs: Last Vital Signs Pulse 124 H 05/07/23 14:36 BP 170/90 H 05/07/23 14:36 BMI result Body Mass Index 34.4 Absence of Cushingoid features. Absence of acromegalic features. Neck exam reve als nl size thyroid about 15 gms. No thyroid nodules palpable. No carotid bruits present. Lungs CTA. Heart S1 S2, Reg R/R. No M/R/ G. Skin exam reveals absence of vitiligo or acanthosis nigricans. Abdominal exam reveals Soft NT/ND with NA BS. No organomegaly present. Neck Other: . Extrem Other: Visual exam of foot performed. No ulcerations or open lesions. No onchomycosis, no callouses.Pulses 2 + distally Sensation intact to monofilament exam. Vibratory sensation sensed is intact with 128 Hz tuning fork Assessment & Plan Assessment & Plan (1) Diabetes mellitus: Comment: same meds Code(s): E11.9 - Type 2 diabetes mellitus without complications Plan: This is 62-year-old male with history of type 2 diabetes being treated with metformin, Actos, trulicity basal and regular insulin with poor glycemic control and no known microvascular or macrovascular complications Plan is reinitiate the Aleah. Patient should also follow-up with the family life educator. Once we have more data, med can adjust insulin regimen Could consider starting an SGLT 2 inhibitor in future should she is Jardiance or Farxiga for renal protection and micro albuminuria but will wait for somewhat better control prior to doing so Coding Level of Care Code Est Pt Level 4 (15359) Diagnoses Diabetes mellitus E11.9
[2023-05-07 14:36] VITALS: BP 170/90; PULSE 124; BMI 34.4
[2023-05-07 14:49] LABS: Glucose, Whole Blood 329 mg/dL (60-115)
== END 2023-05-07 15:05 | disposition home or self-care (01) ==
PROVIDERS: PCP Internal Medicine; Visit Provider Internal Medicine Endocrinology, Diabetes & Metabolism
DX: E11.9 Type 2 diabetes mellitus without complications (principal)
CPT/HCPCS: 99214

== ENCOUNTER → 2023-05-07 14:34 | Outpatient (BNVA) | payer MEDICARE, MEDICAID, SELFPAY | PROVIDERS: PCP Internal Medicine; Visit Provider Internal Medicine Endocrinology, Diabetes & Metabolism | DX: E11.65 Type 2 diabetes mellitus with hyperglycemia (principal); Z79.84 Long term (current) use of oral hypoglycemic drugs; Z79.4 Long term (current) use of insulin; Z79.85 Long-term (current) use of injectable non-insulin antidiabetic drugs | CPT/HCPCS: 82947; 99212 ==

== ENCOUNTER 2023-05-18 14:33 | Outpatient (AMB) | payer MEDICARE, MEDICAID, SELFPAY ==
[2023-05-18 14:35] VITALS: BP 140/78; PULSE 96; O2SAT 98; BMI 34.2
--- NOTE | 2023-05-18 14:35 | A.OFFVIS_ITS ---
Intake Vital Signs 05/18/23 14:35 Height 5 ft 7 in Weight 218 lb 4.122 oz BMI 34.2 BP 140/78 H Blood Pressure Location Lt brachial Position Sitting Pulse 96 Pulse Source Pulse Oximeter Pulse Oximetry (%) 98 Oxygen Delivery Method Nasal Cannula Oxygen Flow Rate 3 Intake Visit Reasons: Chronic obstructive pulmonary disease Intake Note: Patient using O2 via nasal cannula and has CPAP at home..DME from [facility] per patient's sister. Winder Helper Required: No Air Defense Artillery Officer: Air Defense Artillery Officer offered & declined Accompanied by: sister/ bottle caser Allergies No Known Allergies Allergy (Unknown, Verified 05/18/23 14:44) NOT APPLICABLE Medication List - Last Reconciled 05/18/23 by Sandi Latif LPN albuterol sulfate 2.5 mg (3 mL) inhalation Q4H PRN atorvastatin 10 mg PO BEDTIME blood sugar diagnostic (AugmentWareuch Ultra Test strips) USE TO CHECK BLOOD SUGARS ONCE EVERY DAY blood sugar diagnostic (AugmentWareuch Ultra Test strips) As directed twice a day blood-glucose meter (Context Relevant Ultra2 Meter kit) As directed clonazepam 0.5 mg PO BID dulaglutide (Trulicity) 1.5 mg (0.5 mL) subcut QWEEK flash glucose scanning reader ([employer] Aleah 2 [place]) As directed flash glucose sensor (Hemova Medicalyle Aleah 2 Sensor kit) USE DIRECTED lancets (Context Relevant Delica Lancets) As directed 3 twice a day Lantus Solostar U-100 Insulin (insulin glargine) 70 units (0.7 mL) subcut DAILY NS lisinopril 10 mg PO DAILY metformin 1,000 mg PO BID 90 days nebulizers to use every 4 hours for shortness of breathe and wheezing pen needle, diabetic (BD Ultra-Fine Original Pen Needle) to use with insulin once a day pioglitazone 45 mg PO DAILY tamsulosin 0.4 mg PO BEDTIME HPI Chronic obstructive pulmonary disease HPI Details Curry is a pleasant 62 year old male, former smoker, quit 5 years ago, with approximately 40 pack year history and underlying COPD on 2L supplemental oxygen. He was referred by PCP for pulmonary evaluation. He has a cognitive delay, lives with sister, who is present today along with Kaylee, nurse case checker. He has had approximately two COPD exacerbations per year requiring hospitalizations for acute respiratory failure with hypercapnia. He was discharged on NIV for hypercapnia, which he is unable to tolerate. His last hospitalization was at [facility] in February. He was treated with IV steroids and azithromycin as well as imaging, which is not available today. He is currently using albuterol neb PRN with suboptimal control. His sister and case checkeraudio visual manager labored breathing with any exertion and intermittent productive cough, unsure sputum color. Deny any wheezing. Denies any pertinent family history. Denies any occupational exposures. Denies any prior asthma. He receives his oxygen through [facility]. [facility] Medical History (Updated 05/19/23 @ 20:02 by Tanika Powers NP) Obesity Type 2 diabetes mellitus with obesity COPD (chronic obstructive pulmonary disease) Cognitive developmental delay Diabetes mellitus Surgical History No pertinent past surgical history Family History Mother No problems noted. Father No problems noted. Social History (Updated 05/18/23 @ 14:46 by Sandi Latif LPN) Housing: House Patient Tobacco Use Status: Former Tobacco user Tobacco use type: Cigarette e-Cigarette/Vaping Use: Never Used Second Hand Smoke Exposure: No service: No Current occupational status: disabled Cognitive needs: Yes Hearing needs: No Vision needs: No Review of Systems Const Denies chills, Denies excessive sweating, Denies fever(s) and Denies night sweats Eyes Denies dry eyes and Denies irritation ENT Reports Normal hearing present, Denies nasal congestion, Denies nasal discharge, Denies post nasal drip and Denies sore throat Card Denies chest pain, Denies chest pain at rest, Denies chest pain with activity, Denies claudication, Denies leg edema, Denies orthopnea and Denies paroxysmal nocturnal dyspnea Resp Denies chest congestion, Denies excessive phlegm production, Denies pain on inspiration, Denies pain with cough and Denies stridor Musc Denies myalgias Neuro Reports Normal hearing present Endo Denies excessive sweating Aller/Immun Denies seasonal rhinorrhea Physical Exam Vital Signs: Last Vital Signs Pulse 96 05/18/23 14:35 BP 140/78 H 05/18/23 14:35 Pulse Ox 98 05/18/23 14:35 Oxygen Delivery Method Nasal Cannula 05/18/23 14:35 Oxygen Flow Rate 3 05/18/23 14:35 BMI result Body Mass Index 34.2 Const General: cooperative, healthy appearing, comfortable, no acute distress, well developed and alert Nutritional Appearance: obese HEENT Head: Yes normal to inspection, Yes normocephalic and Yes atraumatic Ears: hearing grossly normal bilaterally and external ears normal Eyes General: appearance normal, both eyes and all related structures Eyelids: Yes eyelids normal Sclerae: sclerae normal EOM: EOMs intact bilaterally Neck Neck: Yes normal visual inspection and Yes no lymphadenopathy Lymphatic: no lymphadenopathy noted Chest Chest palpation & inspection: normal inspection of the chest Resp Effort & Inspection: normal respiratory effort, able to speak in complete sentences, no audible wheezes, no cough, no stridor, not tachypneic, no tripod positioning and no use of accessory muscles Auscultation: diminished lung sounds Cardio Jugular venous distension: no JVD Rate: regular rate Skin Other: warm, dry General skin exam: no rashes or lesions noted Neuro Cranial nerves: Yes Normal hearing present Cognition (Neuro): normal cognition Gait exam (Neuro): Normal gait present Extrem General: Yes normal to inspection, Yes capillary refill normal, Yes no clubbing, cyanosis or edema and Yes no pedal edema Psych Appearance: grossly normal and well kempt Speech and movement: Normal speech and movement present and Clear speech present Attitude: cooperative Office Procedures 6 Minute Walk Time:: 15:11 SPO2 % at rest: 92 Pulse at rest: 98 SPO2 % during excercise: 86 Pulse during excercise: 102 SPO2 % after excercise: 94 Pulse after excercise: 112 Distance in yards walked: 50 Performance Observations:: Patient walked with minimal assist for balance on level ground. Patient walked only a few yards without O2 and O2 saturation dropped to 86% with pulse of 102. O2 applied at 2L and rested. O2 saturation increased to 91% with pulse of 112. Patient was unable to maintain O2 saturation while walking..Walked approx 25 yards and O2 dropped again to 85-87%. O2 increased to 3L and saturation increased to 93% Pulse 107. Patient was able to continue walking and maintain O2 saturation 91-93%. Patient would benefit from supplemental O2 at 3L. [id number] - 6 Minute Walk Assessment & Plan Assessment & Plan (1) COPD (chronic obstructive pulmonary disease): Code(s): J44.9 - Chronic obstructive pulmonary disease, unspecified (2) History of acute respiratory failure: Code(s): Z87.09 - Personal history of other diseases of the respiratory system (3) Cognitive developmental delay: Code(s): F81.9 - Developmental disorder of scholastic skills, unspecified (4) Personal history of tobacco use: Code(s): Z87.891 - Personal history of nicotine dependence (5) On supplemental oxygen therapy: Code(s): Z99.81 - Dependence on supplemental oxygen Plan Curry's symptoms are multifactorial with contribution from pulmonary and obesity/deconditioning etiologies. Due to cognitive impairments, a PFT would be difficult to perform to evaluate severity of COPD. Will empirically treat with duoneb BID. 6MWT performed and patient requires continuous 3L supplemental oxygen. Will send for overnight oximetry to assess for noturnal hypoxemia. Will attempt to obtain prior imaging performed at [facility]. All questions were answered and patient is in agreement if plan. Will follow up in 6 weeks to assess response to duoneb, or sooner if needed. Orders: Orders AMB 6 minute walk 05/18/23 J44.1 - Chronic obstructive pulmonary disease with (acute) exacerbation Medications: New ipratropium-albuterol 0.5 mg-3 mg(2.5 mg base)/3 mL 3 mL inhalation BID PRN 180 mL 3RF wheezing Coding Level of Care Code New Pt Level 4 (37232) Diagnoses COPD (chronic obstructive pulmonary disease) J44.9 History of acute respiratory failure Z87.09 Cognitive developmental delay F81.9 Personal history of tobacco use Z87.891 On supplemental oxygen therapy Z99.81 CPT Codes Coding ([id number])
[2023-05-18 15:53] VITALS: PULSE 98; O2SAT 92
== END 2023-05-18 15:25 | disposition home or self-care (01) ==
PROVIDERS: PCP Internal Medicine; Referring Provider Internal Medicine; Visit Provider Nurse Practitioner Family
DX: J44.9 Chronic obstructive pulmonary disease, unspecified (principal); Z87.09 Personal history of other diseases of the respiratory system; Z87.891 Personal history of nicotine dependence; Z99.81 Dependence on supplemental oxygen
CPT/HCPCS: 94618; 99204

== ENCOUNTER → 2023-05-18 14:33 | Outpatient (BNVA) | payer MEDICARE, MEDICAID, SELFPAY | PROVIDERS: PCP Internal Medicine; Referring Provider Internal Medicine; Visit Provider Nurse Practitioner Family | DX: J44.9 Chronic obstructive pulmonary disease, unspecified (principal); F81.9 Developmental disorder of scholastic skills, unspecified; Z87.09 Personal history of other diseases of the respiratory system; Z87.891 Personal history of nicotine dependence; Z99.81 Dependence on supplemental oxygen | CPT/HCPCS: 94618; 99202 ==

== ENCOUNTER 2023-06-25 15:57 | Outpatient (AMB) | payer MEDICARE, MEDICAID, SELFPAY ==
--- NOTE | 2023-06-25 16:24 | A.OFFVIS_ITS ---
Intake Intake Visit Reasons: DM 30 mins Local Area Network Systems Adminstrator Required: No Accompanied by: Sister Allergies No Known Allergies Allergy (Unknown, Verified 05/18/23 14:44) NOT APPLICABLE HPI Comprehensive Diabetes Asmnt Most Recent Diabetes Results: Hemoglobin A1c 6.9 % 08/24/18 Microalb/Creat Ratio 86.0 ug/mg cr (<30) H 05/05/23 Cholesterol 145 mg/dL (<200) 05/05/23 HDL Cholesterol 51 mg/dL (>40) 05/05/23 Triglycerides 81 mg/dL (<150) 05/05/23 Creatinine 0.84 mg/dL (0.5-1.4) 05/05/23 Blood Urea Nitrogen 15 mg/dL (9-16) 05/05/23 Sodium 133 mmol/L (135-145) L 05/05/23 Potassium 4.5 mmol/L (3.3-5.1) 05/05/23 Chloride 97 mmol/L (96-108) 05/05/23 Carbon Dioxide 31 mmol/L (22-29) H 05/05/23 Calcium 9.4 mg/dL (8.4-10.2) 05/05/23 AST 12 U/L (5-37) 05/05/23 ALT 13 U/L (0-40) 05/05/23 Total Protein 8.3 g/dL (6.5-8.0) H 05/05/23 Albumin 4.1 g/dL (3.5-5.0) 05/05/23 [facility] Medical History (Updated 05/19/23 @ 20:02 by Tanika Powers NP) Obesity Type 2 diabetes mellitus with obesity COPD (chronic obstructive pulmonary disease) Cognitive developmental delay Diabetes mellitus Surgical History No pertinent past surgical history Family History Mother No problems noted. Father No problems noted. Social History (Updated 05/18/23 @ 14:46 by Sandi Latif LPN) Housing: House Patient Tobacco Use Status: Former Tobacco user Tobacco use type: Cigarette e-Cigarette/Vaping Use: Never Used Second Hand Smoke Exposure: No service: No Current occupational status: disabled Cognitive needs: Yes Hearing needs: No Vision needs: No Assessment & Plan Assessment & Plan (1) Type 2 diabetes mellitus with obesity: Code(s): E11.69 - Type 2 diabetes mellitus with other specified complication; E66.9 - Obesity, unspecified Plan: Personal Continuous Glucose Monitor: Patients CGM information reviewed Reviewed patient's sensor data: Hypoglycemia: ? 0% Hyperglycemia:? 40% Time in Range:? 60% Average glucose for the last 2 weeks? 180 mg/dL Patient's last A1c 8.9% on 05/05/2023 Reviewed with patient and his sister target goals for A1c Patient's sister asked about drinking alcohol, with diabetes. Instructed patient and his sister about effects of alcohol in relationship to insulin, and hypoglycemia. Discuss the importance of eating complex carbohydrate meals and snacks along with alcohol, to try and prevent hypoglycemia Reviewed how to interpret trend arrows Reminded patient that to check finger sticks if symptoms do not match sensor reading. Discussed lag time between finger stick and sensor data.? Patient able to insert sensor independently at home without issue.? Patient will follow-up with Diabetes Education nurse in 4 months Coding Level of Care Code Est Pt Level 1 (80335) Diagnoses Type 2 diabetes mellitus with obesity E11.69; E66.9
== END 2023-06-25 16:26 | disposition home or self-care (01) ==
PROVIDERS: PCP Internal Medicine; Visit Provider Registered Nurse Diabetes Educator
DX: E11.69 Type 2 diabetes mellitus with other specified complication (principal); E66.9 Obesity, unspecified

== ENCOUNTER → 2023-06-25 15:57 | Outpatient (BNVA) | payer MEDICARE, MEDICAID, SELFPAY | PROVIDERS: PCP Internal Medicine; Visit Provider Registered Nurse Diabetes Educator | DX: E11.69 Type 2 diabetes mellitus with other specified complication (principal); E66.9 Obesity, unspecified | CPT/HCPCS: 99211 ==

== ENCOUNTER 2023-07-13 14:57 | Outpatient (AMB) | payer MEDICARE, MEDICAID, SELFPAY ==
[2023-07-13 15:02] VITALS: BP 114/80; PULSE 96; O2SAT 96; BMI 33.8
--- NOTE | 2023-07-13 15:02 | MHC.OFFVIS ---
Vital Signs 07/13/23 15:02 Height 5 ft 7 in Weight 216 lb 0.848 oz BMI 33.8 BP 114/80 Blood Pressure Location Lt brachial Position Sitting Pulse 96 Pulse Source Pulse Oximeter Pulse Oximetry (%) 96 Oxygen Delivery Method Room Air Intake Visit Reasons: Chronic obstructive pulmonary disease Tar Roofer: Tar Roofer Present Accompanied by: Sister Allergies No Known Allergies Allergy (Unknown, Verified 07/13/23 15:05) NOT APPLICABLE HPI HPI Chronic obstructive pulmonary disease: Details: Curry is a pleasant 62 year old male, former smoker, quit 5 years ago, with approximately 40 pack year history and underlying COPD on 2L supplemental oxygen. He has a cognitive delay, lives with sister Mariam, who is present today along with Kaylee, nurse correctional casework specialist. He has had approximately two COPD exacerbations per year requiring hospitalizations for acute respiratory failure with hypercapnia. He was discharged on NIV for hypercapnia, which he is unable to tolerate. His last hospitalization was at [facility] in February. He was treated with IV steroids and azithromycin as well as imaging, which revealed increased interstitial markings. No prior chest CT. At the last visit, he was started on duoneb BID with good control of symptoms. Denies any cough, wheezing or labored breathing. Caregivers have been checking oxygen saturation with no findings of <94%. [facility] Medical History (Updated 07/13/23 @ 15:39 by Tanika Powers NP) Obesity Type 2 diabetes mellitus with obesity COPD (chronic obstructive pulmonary disease) Cognitive developmental delay Diabetes mellitus Surgical History No pertinent past surgical history Family History Mother No problems noted. Father No problems noted. Social History Housing: House Patient Tobacco Use Status: Former Tobacco user Tobacco use type: Cigarette e-Cigarette/Vaping Use: Never Used Second Hand Smoke Exposure: No service: No Current occupational status: disabled Cognitive needs: Yes Hearing needs: No Vision needs: No Review of Systems Const Denies chills, Denies excessive sweating, Denies fever(s) and Denies night sweats Eyes Denies dry eyes and Denies irritation ENT Reports Normal hearing present, Denies nasal congestion, Denies nasal discharge, Denies post nasal drip and Denies sore throat Card Denies chest pain, Denies chest pain at rest, Denies chest pain with activity, Denies claudication, Denies leg edema, Denies orthopnea and Denies paroxysmal nocturnal dyspnea Resp Denies chest congestion, Denies cough, Denies excessive phlegm production, Denies pain on inspiration, Denies pain with cough, Denies stridor and Denies wheezing Musc Denies myalgias Neuro Reports Normal hearing present Endo Denies excessive sweating Aller/Immun Denies seasonal rhinorrhea and Denies wheezing Physical Exam Vital Signs: Last Vital Signs Pulse 96 07/13/23 15:02 BP 114/80 07/13/23 15:02 Pulse Ox 96 07/13/23 15:02 Oxygen Delivery Method Room Air 07/13/23 15:02 BMI result Body Mass Index 33.8 Const General: cooperative, healthy appearing, comfortable, no acute distress, well developed and alert Nutritional Appearance: obese HEENT Head: Yes normal to inspection, Yes normocephalic and Yes atraumatic Ears: hearing grossly normal bilaterally and external ears normal Eyes General: appearance normal, both eyes and all related structures Eyelids: Yes eyelids normal Sclerae: sclerae normal EOM: EOMs intact bilaterally Neck Neck: Yes normal visual inspection and Yes no lymphadenopathy Lymphatic: no lymphadenopathy noted Chest Chest palpation & inspection: normal inspection of the chest Resp Effort & Inspection: normal respiratory effort, able to speak in complete sentences, no audible wheezes, no cough, no stridor, not tachypneic, no tripod positioning and no use of accessory muscles Auscultation: diminished lung sounds Cardio Jugular venous distension: no JVD Rate: regular rate Skin Other: warm, dry General skin exam: no rashes or lesions noted Neuro Cranial nerves: Yes Normal hearing present Cognition (Neuro): normal cognition Gait exam (Neuro): Normal gait present Extrem General: Yes normal to inspection, Yes capillary refill normal, Yes no clubbing, cyanosis or edema and Yes no pedal edema Psych Appearance: grossly normal and well kempt Speech and movement: Normal speech and movement present and Clear speech present Attitude: cooperative Office Procedures 6 Minute Walk Time:: 15:31 SPO2 % at rest: 94 Pulse at rest: 96 SPO2 % during excercise: 86 Pulse during excercise: 112 SPO2 % after excercise: 93 Pulse after excercise: 110 Distance in yards walked: 150 Performance Observations:: Patient walked unassisted on level ground at moderate pace. After 2 minutes O2 saturation dropped to 86% with pulse of 112. O2 applied at 1L via nasal cannula and rested..O2 sat maintained for the remainder of the walk between 91-92% with pulse rate from 110-112. Patient would benefit from supplemental oxygen. [id number] - 6 Minute Walk Results Reviewed Results Reviewed: Assessment & Plan Assessment & Plan (1) COPD (chronic obstructive pulmonary disease): Code(s): J44.9 - Chronic obstructive pulmonary disease, unspecified Category: Medical (2) History of acute respiratory failure: Code(s): Z87.09 - Personal history of other diseases of the respiratory system Category: Medical (3) Cognitive developmental delay: Code(s): F81.9 - Developmental disorder of scholastic skills, unspecified Category: Medical (4) Personal history of tobacco use: Code(s): Z87.891 - Personal history of nicotine dependence Category: Social Hx (5) On supplemental oxygen therapy: Code(s): Z99.81 - Dependence on supplemental oxygen Category: Medical Plan Sister reports improvements in respiratory symptoms overall since initiating duoneb. Advised to continue. Patient has been maintaining oxygen saturation >94% on room air at rest, and has been using supplemental oxygen less frequently. At the last visit he required 3 L of supplemental oxygen. 6MWT performed today and patient continues to require 1-2L with exertion. Discussed with patient and caregivers. Will send overnight oximetry on room air today to [facility] to be performed. Reviewed prior CXR and will send for chest CT to assess for ILD given findings of bibasilar interstitial opacities. All questions were answered and patient is in agreement if plan. Will follow up to review results or sooner if needed. Orders: Orders Overnight Pulse Oximetry Today G47.34 - Idiopathic sleep related nonobstructive alveolar hypoventilation AMB 6 minute walk Today J44.1 - Chronic obstructive pulmonary disease with (acute) exacerbation CT chest wo IV con Today R93.89 - Abnormal findings on diagnostic imaging of other specified body structures Coding Level of Care Code Est Pt Level 4 (94579) Diagnoses COPD (chronic obstructive pulmonary disease) J44.9 History of acute respiratory failure Z87.09 Cognitive developmental delay F81.9 Personal history of tobacco use Z87.891 On supplemental oxygen therapy Z99.81 CPT Codes Coding ([id number])
[2023-07-13 15:50] VITALS: PULSE 96; O2SAT 94
== END 2023-07-13 15:51 | disposition home or self-care (01) ==
PROVIDERS: PCP Internal Medicine; Visit Provider Nurse Practitioner Family
DX: J44.9 Chronic obstructive pulmonary disease, unspecified (principal); Z87.09 Personal history of other diseases of the respiratory system; F81.9 Developmental disorder of scholastic skills, unspecified; Z87.891 Personal history of nicotine dependence; Z99.81 Dependence on supplemental oxygen
CPT/HCPCS: 94618; 99214

== ENCOUNTER → 2023-07-13 14:57 | Outpatient (BNVA) | payer MEDICARE, MEDICAID, SELFPAY | PROVIDERS: PCP Internal Medicine; Visit Provider Nurse Practitioner Family | DX: J44.9 Chronic obstructive pulmonary disease, unspecified (principal); F81.9 Developmental disorder of scholastic skills, unspecified; Z87.09 Personal history of other diseases of the respiratory system; Z87.891 Personal history of nicotine dependence; Z99.81 Dependence on supplemental oxygen | CPT/HCPCS: 94618; 99212 ==

== ENCOUNTER 2023-08-10 17:07 | Outpatient (REF) | payer MEDICARE, MEDICAID, SELFPAY ==
--- NOTE | ~2023-08-10 | CT_ITS ---
EXAMINATION: CT CHEST WITHOUT CONTRAST CLINICAL INFORMATION: Abnormal chest x-ray. COMPARISON: Chest radiograph 06/14/2021: Stable examination demonstrating no acute pulmonary pathology. CTA chest 07/25/2007 most prominent in the upper lobes anteriorly (for example 5:145). No consolidations. TECHNIQUE: Multidetector volumetric CT imaging of the chest was done. Axial MIP volume rendering provided. Sagittal and coronal reformatted images were obtained. This CT examination was performed using dose optimization techniques as appropriate, variously including the following: *Automated exposure control *Adjustment of mA and/or kV according to patient size (this includes techniques or standardized protocols for targeted exams where dose is matched to indication/reason for exam; i.e. extremities or head) *Use of iterative reconstruction technique DLP: 188 mGy-cm FINDINGS: LUNGS: Moderate emphysematous changes are seen. Diffuse bronchial thickening is present. Scattered small pulmonary nodules are seen with the largest measuring 4 mm (for example left upper lobe 5:142). Hook images of most have been saved. There is subpleural reticulation seen. No consolidation. MEDIASTINUM: The mediastinum is normal. CORONARY ARTERY CALCIFICATION: Minimal PLEURA: There is no pleural effusion. No pleural mass or thickening. AXILLA: No lymphadenopathy. UPPER ABDOMEN: Unremarkable. OSSEOUS STRUCTURES: Unremarkable. CT/CT chest wo IV con IMPRESSION: 1. Moderate emphysema with bronchial thickening. 2. Scattered small pulmonary nodules with the largest measuring 4 mm. 3. Subpleural reticulation. Findings may represent early interstitial fibrotic changes. Fleischner guidelines were followed.
== END 2023-08-10 17:08 | disposition home or self-care (01) ==
LOC: HO.CT 17:07
PROVIDERS: PCP Internal Medicine; Visit Provider Nurse Practitioner Family
DX: R93.89 Abnormal findings on diagnostic imaging of other specified body structures (principal)
CPT/HCPCS: 71250

== ENCOUNTER 2023-08-17 13:57 | Outpatient (AMB) | payer MEDICARE, MEDICAID, SELFPAY ==
--- NOTE | 2023-08-17 14:00 | MHC.PC.OV ---
Vital Signs 08/17/23 14:01 Height 5 ft 7 in Weight 215 lb BMI 33.7 BP 160/88 H Blood Pressure Location Lt brachial Position Sitting Pulse 106 H Pulse Source Pulse Oximeter Pulse Oximetry (%) 98 Oxygen Delivery Method Nasal Cannula Oxygen Flow Rate 2 Intake Visit Reasons: 3 month f/u Enterprise Systems Architect Required: No Allergies No Known Allergies Allergy (Unknown, Verified 07/13/23 15:05) NOT APPLICABLE Tobacco use date assessed: 04/08/23 Dental Screening Dental Screen Date: 04/08/23 HPI 3 month f/u HPI Details DM in fair cocntrol; due to developmental delat this is satisfactory; COUNT INCLUDES [facility] Medical History (Updated 07/13/23 @ 15:39 by Tanika Powers NP) Obesity Type 2 diabetes mellitus with obesity COPD (chronic obstructive pulmonary disease) Cognitive developmental delay Diabetes mellitus Surgical History No pertinent past surgical history Family History Mother No problems noted. Father No problems noted. Social History Housing: House Patient Tobacco Use Status: Former Tobacco user Tobacco use type: Cigarette e-Cigarette/Vaping Use: Never Used Second Hand Smoke Exposure: No service: No Current occupational status: disabled Cognitive needs: Yes Hearing needs: No Vision needs: No Questionnaire Thrive Questionnaire Date Thrive assessed: 04/08/23 VERONIQUE-7 AMB Questionnaire VERONIQUE-7 Date VERONIQUE - 7 assessed: 04/08/23 Source: Developed by Drs. Wilver Ugalde, Andreea Poe, David Gregory and colleagues, with an educational foreign from [employer]. Review of Systems Const Denies chills, Denies headache(s) and Denies weight loss ENT Denies headache(s) Card Denies chest pain, Denies syncope, Denies irregular heart rhythm and Denies dyspnea Resp Denies chest congestion, Denies cough and Denies dyspnea GI Denies abdominal pain, Denies change in stool character, Denies nausea and Denies vomiting Musc Denies deformity and Denies joint swelling Neuro Denies syncope and Denies headache(s) Physical exam (Primary Care) Vital Signs: Last Vital Signs Pulse 106 H 08/17/23 14:01 BP 160/88 H 08/17/23 14:01 Pulse Ox 98 08/17/23 14:01 Oxygen Delivery Method Nasal Cannula 08/17/23 14:01 Oxygen Flow Rate 2 08/17/23 14:01 BMI result Body Mass Index 33.7 Tobacco/Smoking Status: Tobacco use Status Tobacco use date assessed 04/08/23 08/17/23 14:01 Patient Tobacco Use Status Former Tobacco user 08/17/23 14:01 Tobacco use type Cigarette 08/17/23 14:01 e-Cigarette/Vaping Use Never Used 08/17/23 14:01 Thrive Assessment: Date of Thrive Assessment Date Thrive assessed 04/08/23 08/17/23 14:01 Const General: cooperative, comfortable, no acute distress and alert Neck Neck: Yes no lymphadenopathy Thyroid: Thyroid normal Resp Effort & Inspection: normal respiratory effort Auscultation: clear to auscultation bilaterally Percussion: percussion normal Cardio Jugular venous distension: no JVD Palpation: normal PMI Rate: regular rate Rhythm: regular rhythm Heart sounds: S1 normal heart sound present and S2 normal heart sound present GI Inspection: Yes normal to inspection Palpation (GI): No hepatosplenomegaly present Skin General skin exam: no rashes or lesions noted Extrem General: Yes no clubbing, cyanosis or edema Results AMB Hemoglobin A1c AMB Hemoglobin A1c 8.4 % Last Edit by SREEDHAR Elaien on 08/17/23 14:17 Results Reviewed Results Reviewed: Laboratory Last Values Hgb A1c (Clinic) 8.4 % (4.0-6.0) H 08/17/23 14:02 Assessment and Plan Assessment & Plan (1) Type 2 diabetes mellitus with obesity: Code(s): E11.69 - Type 2 diabetes mellitus with other specified complication; E66.9 - Obesity, unspecified Plan: stable Orders: Orders AMB Hemoglobin A1c 08/17/23 E11.69 - Type 2 diabetes mellitus with other specified complication, E66.9 - Obesity, unspecified Lipid Panel Today Z13.220 - Encounter for screening for lipoid disorders Complete Blood Count Auto Diff Today Z13.0 - Encounter for screening for diseases of the blood and blood-forming organs and certain disorders involving the immune mechanism Hemoglobin A1c Today R73.9 - Hyperglycemia, unspecified Comprehensive Badger. Panel Fast Today Z13.9 - Encounter for screening, unspecified Coding Level of Care Code Est Pt Level 3 (74792) Diagnoses Type 2 diabetes mellitus with obesity E11.69; E66.9
[2023-08-17 14:01] VITALS: BP 160/88; PULSE 106; O2SAT 98; BMI 33.7
== END 2023-08-17 14:24 | disposition home or self-care (01) ==
PROVIDERS: PCP Internal Medicine; Visit Provider Internal Medicine
DX: E11.69 Type 2 diabetes mellitus with other specified complication (principal); E66.9 Obesity, unspecified; Z68.33 Body mass index [BMI] 33.0-33.9, adult
CPT/HCPCS: 83036; 99213

== ENCOUNTER 2023-09-07 13:55 | Outpatient (AMB) | payer MEDICARE, MEDICAID, SELFPAY ==
[2023-09-07 13:56] VITALS: BP 120/82; PULSE 95; BMI 34.5
--- NOTE | 2023-09-07 13:56 | A.OFFVIS_ITS ---
Vital Signs 09/07/23 13:56 Height 5 ft 7 in Weight 220 lb 7.396 oz BMI 34.5 BP 120/82 Blood Pressure Location Rt brachial Position Sitting Pulse 95 Pulse Source Pulse Oximeter Intake Visit Reasons: DM-confirmed Intake Note: Patient present today to follow up on Type 2 Diabetes Mellitus. Last seen by Dr. Lugo 05/07/2023. 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 Last seen by Dr. Lugo 05/07/2023. Patient receives DME supplies through: [employer] Last Diabetic Eye exam: 05/02 Last Podiatry Visit: none, grand daughter assists Random Glucose: mg/dl HgA1C: 8.4% 08/17/2023 63 YO M who is seen in f/u for T2DM. Patient is not medically competent and is accompanied by his sister who cares for him. Initially diagnosed with T2DM in 10 yrs . Previously not followed by Endo Was initially started on treatment with metformin. Current regimen metformin 1000 mg BID Actos 45 mg QD Lantus 75 units Humalog correction for point care > 200 6 units, >250 8 units and>300 10 units not taking for awhile other than a few times while he was off Trulicity Trulicity 3.0 weekly Most recent A1C [8.4%], [down] from prior [8.9%] earlier this year Family history of T2DM in parents Type 2 DM . Has eyes checked yearly, last eye exam 04/2023 , denies retinopathy. Denies neuropathy, does not see podiatry. + nephropathy, on PENNY/ARB. . Has HLD, Not on statin. Denies CAD. Not Had diabetes education. [facility] Medical History Obesity Type 2 diabetes mellitus with obesity COPD (chronic obstructive pulmonary disease) Cognitive developmental delay Diabetes mellitus Surgical History No pertinent past surgical history Family History Mother No problems noted. Father No problems noted. Social History Housing: House Patient Tobacco Use Status: Former Tobacco user Tobacco use type: Cigarette e-Cigarette/Vaping Use: Never Used Second Hand Smoke Exposure: No service: No Current occupational status: disabled Cognitive needs: Yes Hearing needs: No Vision needs: No Physical Exam Vital Signs: Last Vital Signs Pulse 95 09/07/23 13:56 BP 120/82 09/07/23 13:56 BMI result Body Mass Index 34.5 Const General: cooperative Nutritional Appearance: overweight Orientation/consciousness: oriented to person Neck Neck: Yes normal visual inspection Thyroid: Thyroid normal Resp Other: using oxygen, no dyspnea Effort & Inspection: normal respiratory effort Cardio Jugular venous distension: no JVD Rate: regular rate Rhythm: regular rhythm Heart sounds: S1 normal heart sound present and S2 normal heart sound present Neuro General: oriented to person Extrem Other: Visual exam of foot performed. No ulcerations or open lesions. No onchomycosis, no callouses. Sensation intact to monofilament exam. Vibratory sensation is normal with 128 Hz tuning fork. Results Reviewed Results Reviewed: Laboratory Tests 05/05/23 05/05/23 07:51 07:55 Hemoglobin A1c % 8.9 H Calcium 9.4 AST 12 ALT 13 Triglycerides 81 Cholesterol 145 LDL Cholesterol, Calc 78 HDL Cholesterol 51 Urine Creatinine 153.45 Urine Microalbumin 132.0 Microalb/Creat Ratio 86.0 H Laboratory Tests 05/05/23 07:55 Creatinine 0.84 Estimated GFR > 60 Assessment & Plan Assessment & Plan (1) Type 2 diabetes mellitus with obesity: Code(s): E11.69 - Type 2 diabetes mellitus with other specified complication; E66.9 - Obesity, unspecified Category: Medical Plan: Diabetes medications: add sglt-2 inhibitor, both patient and his sister were counseled to keep patient hydrated and observe for potential side effects: weakness, uti, fungal infection and to notify provider if any issues. Patient has nephropathy. This may delay the progression. Reduce Lantus to 70 units when starting jardiance but can increase back up if numbers above target metformin 1000 mg BID Actos 45 mg QD Lantus 75 units Humalog correction for point care > 200 6 units, >250 8 units and>300 10 units Jardiance 10mg daily (2) Nephropathy: Code(s): N28.9 - Disorder of kidney and ureter, unspecified Category: Medical Plan: as above start sglt-2 inhibitor Coding Level of Care Code Est Pt Level 4 (61922) Diagnoses Type 2 diabetes mellitus with obesity E11.69; E66.9 Nephropathy N28.9 Time Spent (min) 45 Comment spent in lab and chart review, glucose sensor review, face to face and documenting
[2023-09-07 14:12] LABS: Glucose, Whole Blood 196 mg/dL (60-115)
== END 2023-09-07 14:29 | disposition home or self-care (01) ==
PROVIDERS: PCP Internal Medicine; Visit Provider Nurse Practitioner Adult Health
DX: E11.69 Type 2 diabetes mellitus with other specified complication (principal); E66.9 Obesity, unspecified; N28.9 Disorder of kidney and ureter, unspecified
CPT/HCPCS: 99214

== ENCOUNTER → 2023-09-07 13:55 | Outpatient (BNVA) | payer MEDICARE, MEDICAID, SELFPAY | PROVIDERS: PCP Internal Medicine; Visit Provider Nurse Practitioner Adult Health | DX: E11.69 Type 2 diabetes mellitus with other specified complication (principal); E66.9 Obesity, unspecified; N28.9 Disorder of kidney and ureter, unspecified; Z79.84 Long term (current) use of oral hypoglycemic drugs | CPT/HCPCS: 82947; 99212 ==

== ENCOUNTER 2023-09-28 14:58 | Outpatient (AMB) | payer MEDICARE, MEDICAID, SELFPAY ==
[2023-09-28 15:07] VITALS: BP 120/74; PULSE 101; O2SAT 97; BMI 33.5
--- NOTE | 2023-09-28 15:07 | A.OFFVIS_ITS ---
Vital Signs 09/28/23 15:07 Height 5 ft 7 in Weight 213 lb 13.574 oz BMI 33.5 BP 120/74 Blood Pressure Location Rt brachial Position Sitting Pulse 101 H Pulse Source Pulse Oximeter Pulse Oximetry (%) 97 Oxygen Delivery Method Nasal Cannula Oxygen Flow Rate 2 Intake Visit Reasons: COPD Allergies No Known Allergies Allergy (Unknown, Verified 09/28/23 15:11) NOT APPLICABLE HPI HPI COPD: Details: Curry is a pleasant 63 year old male, former smoker, quit 5 years ago, with approximately 40 pack year history and underlying COPD on 2L supplemental oxygen. He has a cognitive delay, lives with sister Mariam, who is present today. He has had approximately two COPD exacerbations per year requiring hospitalizations for acute respiratory failure with hypercapnia. He was discharged on NIV for hypercapnia, which he is unable to tolerate. His last hospitalization was at [facility] in February. He was treated with IV steroids and azithromycin as well as imaging, which revealed increased interstitial markings. Today he presents to review chest CT as well as overnight oximetry. He denies any hospitalizations or visits to urgent care since the last visit. He has been using duoneb BID with good control of symptoms. Denies any cough, wheezing or labored breathing. Caregivers have been checking oxygen saturation with no findings of <92%. [facility] Medical History Obesity Type 2 diabetes mellitus with obesity COPD (chronic obstructive pulmonary disease) Cognitive developmental delay Diabetes mellitus Surgical History No pertinent past surgical history Family History Mother No problems noted. Father No problems noted. Social History Housing: House Patient Tobacco Use Status: Former Tobacco user Tobacco use type: Cigarette e-Cigarette/Vaping Use: Never Used Second Hand Smoke Exposure: No service: No Current occupational status: disabled Cognitive needs: Yes Hearing needs: No Vision needs: No Review of Systems Const Denies chills, Denies excessive sweating, Denies fever(s) and Denies night sweats Eyes Denies dry eyes and Denies irritation ENT Reports Normal hearing present, Denies nasal congestion, Denies nasal discharge, Denies post nasal drip and Denies sore throat Card Denies chest pain, Denies chest pain at rest, Denies chest pain with activity, Denies claudication, Denies leg edema, Denies orthopnea and Denies paroxysmal nocturnal dyspnea Resp Denies chest congestion, Denies cough, Denies excessive phlegm production, Denies pain on inspiration, Denies pain with cough, Denies stridor and Denies wheezing Musc Denies myalgias Neuro Reports Normal hearing present Endo Denies excessive sweating Aller/Immun Denies seasonal rhinorrhea and Denies wheezing Physical Exam Vital Signs: Last Vital Signs Pulse 101 H 09/28/23 15:07 BP 120/74 09/28/23 15:07 Pulse Ox 97 09/28/23 15:07 Oxygen Delivery Method Nasal Cannula 09/28/23 15:07 Oxygen Flow Rate 2 09/28/23 15:07 BMI result Body Mass Index 33.5 Const Other: wearing supplemental oxygen General: cooperative, healthy appearing, comfortable, no acute distress, well developed and alert Nutritional Appearance: obese HEENT Head: Yes normal to inspection, Yes normocephalic and Yes atraumatic Ears: hearing grossly normal bilaterally and external ears normal Eyes General: appearance normal, both eyes and all related structures Eyelids: Yes eyelids normal Sclerae: sclerae normal EOM: EOMs intact bilaterally Neck Neck: Yes normal visual inspection and Yes no lymphadenopathy Lymphatic: no lymphadenopathy noted Chest Chest palpation & inspection: normal inspection of the chest Resp Effort & Inspection: normal respiratory effort, able to speak in complete sentences, no audible wheezes, no cough, no stridor, not tachypneic, no tripod positioning and no use of accessory muscles Auscultation: diminished lung sounds Cardio Jugular venous distension: no JVD Rate: regular rate Skin Other: warm, dry General skin exam: no rashes or lesions noted Neuro Cranial nerves: Yes Normal hearing present Cognition (Neuro): normal cognition Gait exam (Neuro): Normal gait present Extrem General: Yes normal to inspection, Yes capillary refill normal, Yes no clubbing, cyanosis or edema and Yes no pedal edema Psych Appearance: grossly normal and well kempt Speech and movement: Normal speech and movement present and Clear speech present Attitude: cooperative Results Reviewed Results Reviewed: [address] [address] [address] Scan Report Signed Patient: Curry Philippe MR#: [id number] : 1960 Acct:[id number] Age/Sex: 62 / M ADM Date: 08/10/23 Loc: HO.CT Attending Dr: Tanika Powers NP Ordering Physician: Tanika Powers NP Date of Service: 08/10/23 Procedure(s): CT chest wo IV con Accession Number(s): [id number] cc: Jose A Alves MD; Tanika Powers NP~ EXAMINATION: CT CHEST WITHOUT CONTRAST CLINICAL INFORMATION: Abnormal chest x-ray. COMPARISON: Chest radiograph 06/14/2021: Stable examination demonstrating no acute pulmonary pathology. CTA chest 07/25/2007 most prominent in the upper lobes anteriorly (for example 5:145). No consolidations. TECHNIQUE: Multidetector volumetric CT imaging of the chest was done. Axial MIP volume rendering provided. Sagittal and coronal reformatted images were obtained. This CT examination was performed using dose optimization techniques as appropriate, variously including the following: *Automated exposure control *Adjustment of mA and/or kV according to patient size (this includes techniques or standardized protocols for targeted exams where dose is matched to indication/reason for exam; i.e. extremities or head) *Use of iterative reconstruction technique DLP: 188 mGy-cm FINDINGS: LUNGS: Moderate emphysematous changes are seen. Diffuse bronchial thickening is present. Scattered small pulmonary nodules are seen with the largest measuring 4 mm (for example left upper lobe 5:142). Hook images of most have been saved. There is subpleural reticulation seen. No consolidation. MEDIASTINUM: The mediastinum is normal. CORONARY ARTERY CALCIFICATION: Minimal PLEURA: There is no pleural effusion. No pleural mass or thickening. AXILLA: No lymphadenopathy. UPPER ABDOMEN: Unremarkable. OSSEOUS STRUCTURES: Unremarkable. CT/CT chest wo IV con IMPRESSION: 1. Moderate emphysema with bronchial thickening. 2. Scattered small pulmonary nodules with the largest measuring 4 mm. 3. Subpleural reticulation. Findings may represent early interstitial fibrotic changes. Fleischner guidelines were followed. Dictated By: Ricco Wild MD Signed By: <Electronically signed by Ricco Wild MD in OV> 09/03/23 0825 DD/ 1722 TD/TT: Crew Leader/Control Room Operator: ALEJANDRO Assessment & Plan Assessment & Plan (1) COPD (chronic obstructive pulmonary disease): Code(s): J44.9 - Chronic obstructive pulmonary disease, unspecified Category: Medical (2) History of acute respiratory failure: Code(s): Z87.09 - Personal history of other diseases of the respiratory system Category: Medical (3) Cognitive developmental delay: Code(s): F81.9 - Developmental disorder of scholastic skills, unspecified Category: Medical (4) Personal history of tobacco use: Code(s): Z87.891 - Personal history of nicotine dependence Category: Social Hx (5) On supplemental oxygen therapy: Code(s): Z99.81 - Dependence on supplemental oxygen Category: Medical (6) Multiple pulmonary nodules: Code(s): R91.8 - Other nonspecific abnormal finding of lung field Category: Medical Plan Sister reports good control of respiratory symptoms using 2L supplemental oxygen and duoneb. Advised to continue. Overnight oximetry revealed nocturnal hypoxemia, encouraged to trial 1 L supplemental oxygen. His sister did note that it is unlikely he would keep nasal cannula in place all night but willing to trial. Reviewed chest CT which revealed moderate emphysematous changes as well as multiple pulmonary nodules <4mm. Will repeat in one year to assess to stability. All questions were answered and patient is in agreement if plan. Will follow up in 3-6 months or sooner if needed. Orders: Orders CT chest wo IV con 11 Months R91.8 - Other nonspecific abnormal finding of lung field Coding Level of Care Code Est Pt Level 4 (06891) Diagnoses COPD (chronic obstructive pulmonary disease) J44.9 History of acute respiratory failure Z87.09 Cognitive developmental delay F81.9 Personal history of tobacco use Z87.891 On supplemental oxygen therapy Z99.81 Multiple pulmonary nodules R91.8
== END 2023-09-28 15:26 | disposition home or self-care (01) ==
PROVIDERS: PCP Internal Medicine; Visit Provider Nurse Practitioner Family
DX: J44.9 Chronic obstructive pulmonary disease, unspecified (principal); Z87.09 Personal history of other diseases of the respiratory system; F81.9 Developmental disorder of scholastic skills, unspecified; Z87.891 Personal history of nicotine dependence; Z99.81 Dependence on supplemental oxygen; R91.8 Other nonspecific abnormal finding of lung field
CPT/HCPCS: 99214

== ENCOUNTER → 2023-09-28 14:58 | Outpatient (BNVA) | payer MEDICARE, MEDICAID, SELFPAY | PROVIDERS: PCP Internal Medicine; Visit Provider Nurse Practitioner Family | DX: J44.9 Chronic obstructive pulmonary disease, unspecified (principal); R91.8 Other nonspecific abnormal finding of lung field; F81.9 Developmental disorder of scholastic skills, unspecified; Z87.09 Personal history of other diseases of the respiratory system; Z87.891 Personal history of nicotine dependence; Z99.81 Dependence on supplemental oxygen | CPT/HCPCS: 99212 ==

== ENCOUNTER 2023-10-20 14:56 | Outpatient (AMB) | payer MEDICARE, MEDICAID, SELFPAY ==
--- NOTE | 2023-10-20 15:02 | A.OFFVIS_ITS ---
Vital Signs 10/20/23 15:06 Height 5 ft 7 in Weight 213 lb 13.574 oz BMI 33.5 BP 130/80 Blood Pressure Location Rt brachial Position Sitting Pulse 96 Pulse Source Pulse Oximeter Intake Visit Reasons: DM/LVM Intake Note: Patient presents today to re-establish treatment on Type Diabetes Mellitus: Last Diabetic Eye exam: 04/2023 Last Podiatry Exam: Does not see a Adventure Therapist Most recent HbA1c: 8.4%, 08/17/2023 Random Glucose- 112 mg/dL, Today Group President Required: No Accompanied by: Sister Allergies No Known Allergies Allergy (Unknown, Verified 10/20/23 15:07) NOT APPLICABLE HPI Comments Details: 63 YO M who is seen in f/u for T2DM. Patient is not medically competent and is accompanied by his sister who cares for him. Initially diagnosed with T2DM in 10 yrs . He was last seen in early September. Was initially started on treatment with metformin. He was last seen 09/29 at which time Jardiance 10mg was added which was not covered by his insurance. Current regimen metformin 1000 mg BID Actos 45 mg QD Lantus 50 units (had decreased from 70 due to lows) Humalog correction for point care > 200 6 units, >250 8 units and>300 10 units not taking for awhile other than a few times while he was off Trulicity Trulicity 3.0 weekly On freestyle 2: average 177 Most recent A1C [8.4%], [down] from prior [8.9%] earlier this year Family history of T2DM in parents Type 2 DM . Has eyes checked yearly, last eye exam 04/2022 due sister will schedule , denies retinopathy. Denies neuropathy, does not see podiatry Niece takes care of his nails + nephropathy, on PENNY/ARB. . Has HLD, on statin. Denies CAD. Not Had diabetes education. [facility] Medical History Obesity Type 2 diabetes mellitus with obesity COPD (chronic obstructive pulmonary disease) Cognitive developmental delay Diabetes mellitus Surgical History No pertinent past surgical history Family History Mother No problems noted. Father No problems noted. Social History Housing: House Patient Tobacco Use Status: Former Tobacco user Tobacco use type: Cigarette e-Cigarette/Vaping Use: Never Used Second Hand Smoke Exposure: No service: No Current occupational status: disabled Cognitive needs: Yes Hearing needs: No Vision needs: No Physical Exam Vital Signs: BMI result Body Mass Index 33.5 Const Other: Absence of Cushingoid features. Absence of acromegalic features. Neck exam reveals nl size thyroid about 15 gms. No thyroid nodules palpable. No carotid bruits present. Heart S1 S2, Reg R/R. No M/R G. Skin exam reveals absence of vitiligo or acanthosis nigricans. Results Reviewed Results Reviewed: Laboratory Tests 01/03/23 01/06/23 05/05/23 07:46 14:46 07:51 Plt Count Potassium Creatinine Hgb A1c (Clinic) 9.0 H Hemoglobin A1c % Calcium AST ALT Triglycerides Cholesterol LDL Cholesterol, Calc HDL Cholesterol Urine Creatinine 143.46 153.45 Urine Microalbumin 85.0 132.0 Microalb/Creat Ratio 59.2 H 86.0 H 05/05/23 08/17/23 07:55 14:02 Plt Count 320 Potassium 4.5 Creatinine 0.84 Hgb A1c (Clinic) 8.4 H Hemoglobin A1c % 8.9 H Calcium 9.4 AST 12 ALT 13 Triglycerides 81 Cholesterol 145 LDL Cholesterol, Calc 78 HDL Cholesterol 51 Urine Creatinine Urine Microalbumin Microalb/Creat Ratio Assessment & Plan Assessment & Plan (1) Type 2 diabetes mellitus with obesity: Code(s): E11.69 - Type 2 diabetes mellitus with other specified complication; E66.9 - Obesity, unspecified Category: Medical Plan: Type 2 diabetic with nephropathy with a glucose average 177. He does have nephropathy and may benefit from an SGLT2 inhibitor. Jardiance was not covered today I wrote a prescription for Farxiga 5 mg. His sister was counseled that if he does start this he will need to have follow up blood work 3 weeks later and have his sugars closely monitored as he may need a reduction in Lantus from 50-40. Side effects of SGLT2 inhibitors reviewed Medications: New dapagliflozin propanediol (Farxiga) 5 mg PO DAILY 30 days 30 tabs 3RF E11.69 - Type 2 diabetes mellitus with other specified complication, E66.9 - Obesity, unspecified Discontinued empagliflozin Discontinued Reason: Doctor's Order 10 mg PO DAILY 30 days 30 tabs 2RF E11.69 - Type 2 diabetes mellitus with other specified complication, E66.9 - Obesity, unspecified Coding Level of Care Code Est Pt Level 4 (64758) Diagnoses Type 2 diabetes mellitus with obesity E11.69; E66.9 Time Spent (min) 30 Comment Time spent reviewing labs/provider notes, face to face, chart doc
[2023-10-20 15:06] VITALS: BP 130/80; PULSE 96; BMI 33.5
[2023-10-20 15:15] LABS: Glucose, Whole Blood 112 mg/dL (60-115)
== END 2023-10-20 15:26 | disposition home or self-care (01) ==
PROVIDERS: PCP Internal Medicine; Visit Provider Nurse Practitioner Adult Health
DX: E11.69 Type 2 diabetes mellitus with other specified complication (principal); E66.9 Obesity, unspecified
CPT/HCPCS: 99214

== ENCOUNTER → 2023-10-20 14:56 | Outpatient (BNVA) | payer MEDICARE, MEDICAID, SELFPAY | PROVIDERS: PCP Internal Medicine; Visit Provider Nurse Practitioner Adult Health | DX: E11.69 Type 2 diabetes mellitus with other specified complication (principal); E66.9 Obesity, unspecified; Z68.33 Body mass index [BMI] 33.0-33.9, adult; Z79.84 Long term (current) use of oral hypoglycemic drugs; Z79.85 Long-term (current) use of injectable non-insulin antidiabetic drugs; Z79.4 Long term (current) use of insulin | CPT/HCPCS: 82947; 99212 ==

== ENCOUNTER 2023-11-17 14:13 | Outpatient (AMB) | payer MEDICARE, MEDICAID, SELFPAY ==
--- NOTE | 2023-11-17 14:16 | A.OFFPC_ITS ---
Vital Signs 11/17/23 14:17 Height 5 ft 7 in Weight 211 lb BMI 33.0 BP 144/74 H Blood Pressure Location Lt brachial Position Sitting Pulse 78 Pulse Source Pulse Oximeter Pulse Oximetry (%) 92 Oxygen Delivery Method Room Air Intake Visit Reasons: 3mth f/u Cuff Knitter Required: No Allergies No Known Allergies Allergy (Unknown, Verified 11/17/23 14:20) NOT APPLICABLE Medication List - Last Reconciled 11/18/23 by Jose A Alves MD albuterol sulfate 2.5 mg (3 mL) inhalation Q4H PRN atorvastatin 10 mg PO BEDTIME blood sugar diagnostic (SwingPaluch Ultra Test strips) USE TO CHECK BLOOD SUGARS ONCE EVERY DAY blood sugar diagnostic (Art LoftTouch Ultra Test strips) As directed twice a day blood-glucose meter (SwingPaluch Ultra2 Meter kit) As directed dapagliflozin propanediol (Farxiga) 5 mg PO DAILY 30 days dulaglutide (Trulicity) 3 mg subcut dulaglutide (Trulicity) 1.5 mg subcut flash glucose scanning reader (Th[employer]vers Aleah 2 Cuervo) As directed flash glucose sensor ([employer] BrainstormingStyle Aleah 2 Sensor kit) USE DIRECTED ipratropium-albuterol 0.5 mg-3 mg(2.5 mg base)/3 mL 3 mL inhalation BID PRN lancets (SwingPaluch Delica Lancets) As directed 3 twice a day Lantus Solostar U-100 Insulin (insulin glargine) 70 units (0.7 mL) subcut DAILY NS lisinopril 10 mg PO DAILY metformin 1,000 mg PO BID 90 days mirtazapine 15 mg PO BEDTIME nebulizers to use every 4 hours for shortness of breathe and wheezing pen needle, diabetic (BD Ultra-Fine Original Pen Needle) to use with insulin o nce a day pioglitazone 45 mg PO DAILY tamsulosin 0.4 mg PO BEDTIME Tobacco use date assessed: 04/08/23 Dental Screening Dental Screen Date: 04/08/23 HPI 3mth f/u HPI Details DM in fair control but cognitive issues limit rx; sister cares for him PFSH Medical History Obesity Type 2 diabetes mellitus with obesity COPD (chronic obstructive pulmonary disease) Cognitive developmental delay Diabetes mellitus Surgical History No pertinent past surgical history Family History Mother No problems noted. Father No problems noted. Social History Housing: House Patient Tobacco Use Status: Former Tobacco user Tobacco use type: Cigarette e-Cigarette/Vaping Use: Never Used Second Hand Smoke Exposure: No service: No Current occupational status: disabled Cognitive needs: Yes Hearing needs: No Vision needs: No Questionnaire Thrive Questionnaire Date Thrive assessed: 04/08/23 VERONIQUE-7 AMB Questionnaire VERONIQUE-7 Date VERONIQUE - 7 assessed: 04/08/23 Source: Developed by Drs. Wilver Ugalde, Andreea Poe, David Gregory and colleagues, with an educational foreign from [employer]. Review of Systems Const Denies chills, Denies headache(s) and Denies weight loss ENT Denies headache(s) Card Denies chest pain, Denies syncope, Denies irregular heart rhythm and Denies dyspnea Resp Denies chest congestion, Denies cough and Denies dyspnea GI Denies abdominal pain, Denies change in stool character, Denies nausea and Denies vomiting Musc Denies deformity and Denies joint swelling Neuro Denies syncope and Denies headache(s) Physical exam (Primary Care) Vital Signs: Last Vital Signs Pulse 78 11/17/23 14:17 BP 144/74 H 11/17/23 14:17 Pulse Ox 92 11/17/23 14:17 Oxygen Delivery Method Room Air 11/17/23 14:17 BMI result Body Mass Index 33.0 Tobacco/Smoking Status: Tobacco use Status Tobacco use date assessed 04/08/23 11/17/23 14:22 Patient Tobacco Use Status Former Tobacco user 11/17/23 14:22 Tobacco use type Cigarette 11/17/23 14:22 e-Cigarette/Vaping Use Never Used 11/17/23 14:22 Thrive Assessment: Date of Thrive Assessment Date Thrive assessed 04/08/23 11/17/23 14:22 Const General: cooperative, comfortable, no acute distress and alert Neck Neck: Yes no lymphadenopathy Thyroid: Thyroid normal Resp Effort & Inspection: normal respiratory effort Auscultation: clear to auscultation bilaterally Percussion: percussion normal Cardio Jugular venous distension: no JVD Palpation: normal PMI Rate: regular rate Rhythm: regular rhythm Heart sounds: S1 normal heart sound present and S2 normal heart sound present GI Inspection: Yes normal to inspection Palpation (GI): No hepatosplenomegaly present Skin General skin exam: no rashes or lesions noted Extrem General: Yes no clubbing, cyanosis or edema Results AMB Hemoglobin A1c AMB Hemoglobin A1c 7.6 % Last Edit by Sabra Ross CMA on 11/17/23 15:08 Results Reviewed Results Reviewed: Laboratory Last Values Hgb A1c (Clinic) 7.6 % (4.0-6.0) H 11/17/23 14:23 Assessment and Plan Assessment & Plan (1) Diabetes mellitus: Comment: same meds Code(s): E11.9 - Type 2 diabetes mellitus without complications Plan: stable; same rx Orders: Orders AMB Hemoglobin A1c 11/17/23 E11.69 - Type 2 diabetes mellitus with other specified complication, E66.9 - Obesity, unspecified Coding Level of Care Code Est Pt Level 3 (25480) Diagnoses Diabetes mellitus E11.9
[2023-11-17 14:17] VITALS: BP 144/74; PULSE 78; O2SAT 92; BMI 33.0
== END 2023-11-17 15:29 | disposition home or self-care (01) ==
PROVIDERS: PCP Internal Medicine; Visit Provider Internal Medicine
DX: E11.69 Type 2 diabetes mellitus with other specified complication (principal)
CPT/HCPCS: 83036; 99213

== ENCOUNTER 2023-12-21 07:52 | Outpatient (REF) | payer MEDICARE, MEDICAID, SELFPAY ==
[2023-12-21 08:53] LABS: Anion Gap 12 (12-20); Blood Urea Nitrogen 12 mg/dL (9-16); Calcium 9.5 mg/dL (8.4-10.2); Carbon Dioxide 32 mmol/L (22-29); Chloride 97 mmol/L (96-108); Estimated Glomerular Filt Rate > 60; Glucose Random 160 mg/dL (60-115); Potassium 4.6 mmol/L (3.3-5.1); Sodium 136 mmol/L (135-145)
== END 2023-12-21 07:53 | disposition home or self-care (01) ==
LOC: HO.LAB 07:52
PROVIDERS: PCP Internal Medicine; Visit Provider Nurse Practitioner Adult Health
DX: E11.69 Type 2 diabetes mellitus with other specified complication (principal); E66.9 Obesity, unspecified
CPT/HCPCS: 36415; 80048

== ENCOUNTER 2023-12-23 14:49 | Outpatient (AMB) | payer MEDICARE, MEDICAID, SELFPAY ==
--- NOTE | 2023-12-23 13:02 | A.OFFVIS_ITS ---
Vital Signs 12/23/23 14:56 Height 5 ft 7 in Weight 218 lb 4.122 oz BMI 34.2 BP 138/88 Blood Pressure Location Rt brachial Position Sitting Pulse 89 Intake Visit Reasons: DM/LVM Intake Note: Patient presents today for a follow-up on Type 2 Diabetes Mellitus: Last Diabetic Eye exam: 04/2023 Last Podiatry Exam: Does not see a Oxyacetylene Torch Operator Most recent HbA1c: 7.6%, 11/17/2023 Random Glucose- 82 mg/dL, Today Medtronics Technician Required: No Accompanied by: Sister Allergies No Known Allergies Allergy (Unknown, Verified 11/17/23 14:20) NOT APPLICABLE HPI Comments Details: 63 YO M who is seen in f/u for T2DM. Patient is not medically competent and is accompanied by his sister who cares for him and his director case. He was last seen by myself 10/20/23 at which Farxiga was added. They were not able to get this from the pharmacy. Initially diagnosed with T2DM approx 2012 Was initially started on treatment with metformin. Jardiance 10mg was added which was not covered by his insurance. Current regimen metformin 1000 mg BID Actos 45 mg QD Lantus 50- 60 units Humalog correction for point care > 200 6 units, >250 8 units and>300 10 units Trulicity 3.0 weekly Freestyle raymundo sensor 3 average glucose: 217 14 day continuous glucose screen reviewed, report not available readings overall higher than target Most recent A1C 7.7% still above target 11/17/23 Family history of T2DM in parents Type 2 DM . Has eyes checked yearly, last eye exam 05/2023, denies retinopathy. Denies neuropathy, does not see podiatry Niece takes care of his nails + nephropathy, on PENNY/ARB Has HLD, on statin. Denies CAD. Seen by CDE 06/2023 [facility] Medical History Obesity Type 2 diabetes mellitus with obesity COPD (chronic obstructive pulmonary disease) Cognitive developmental delay Diabetes mellitus Surgical History No pertinent past surgical history Family History Mother No problems noted. Father No problems noted. Social History Housing: House Patient Tobacco Use Status: Former Tobacco user Tobacco use type: Cigarette e-Cigarette/Vaping Use: Never Used Second Hand Smoke Exposure: No service: No Current occupational status: disabled Cognitive needs: Yes Hearing needs: No Vision needs: No Physical Exam Vital Signs: Last Vital Signs Pulse 89 12/23/23 14:56 BP 138/88 12/23/23 14:56 BMI result Body Mass Index 34.2 Const Other: Absence of Cushingoid features. Absence of acromegalic features. Neck exam reveals nl size thyroid about 15 gms. No thyroid nodules palpable. . Heart S1 S2, Reg R/R. No M/R G. Skin exam reveals absence of vitiligo or acanthosis nigricans. No edema Results Reviewed Results Reviewed: Laboratory Last Values Glucose (Clinic) 82 mg/dL (60-115) 12/23/23 15:01 Assessment & Plan Assessment & Plan (1) Type 2 diabetes mellitus with obesity: Code(s): E11.69 - Type 2 diabetes mellitus with other specified complication; E66.9 - Obesity, unspecified Category: Medical Plan: 63-year-old type 2 diabetic with nephropathy with failure to achieve target A1c of 7%. Most recent A1c was 7.6%. We will place an order for Farxiga 10 mg. Side effects of SGLT-2 inhibitors : UTI, fungal infection, bacterial infection in the perineum, light headed, feeling like you may pass out, low blood sugar, dehydration, allergic reaction-skin rash, itching, hives, rare dka, change in kidney function. Contact PCP or go to urgent care for any infection. More serious reaction go to ER and stop medication, Notify Endo if medication is stopped and your blood sugars increase. The patient had an opportunity to ask questions regarding treatment plan. The patient expressed understanding and agreement with the above treatment plan. The patient is aware they (family or home health aide) should contact our office by phone for worsening glucose readings or for any low blood sugars which may warrant a change in diabetes medication. Compliance is encouraged with medications and any followup testing/consults which may have been ordered. Coding Level of Care Code Est Pt Level 4 (25039) Complex EM visit Add On G2211 Diagnoses Type 2 diabetes mellitus with obesity E11.69; E66.9 Time Spent (min) 35 Comment Time spent reviewing labs/provider notes, face to face, chart doc
[2023-12-23 14:56] VITALS: BP 138/88; PULSE 89; BMI 34.2
[2023-12-23 15:05] LABS: Glucose, Whole Blood 82 mg/dL (60-115)
== END 2023-12-23 15:24 | disposition home or self-care (01) ==
PROVIDERS: PCP Internal Medicine; Visit Provider Nurse Practitioner Adult Health
DX: E11.69 Type 2 diabetes mellitus with other specified complication (principal); E66.9 Obesity, unspecified
CPT/HCPCS: 99214; G2211

== ENCOUNTER → 2023-12-23 14:49 | Outpatient (BNVA) | payer MEDICARE, MEDICAID, SELFPAY | PROVIDERS: PCP Internal Medicine; Visit Provider Nurse Practitioner Adult Health | DX: E11.69 Type 2 diabetes mellitus with other specified complication (principal); E66.9 Obesity, unspecified; Z68.34 Body mass index [BMI] 34.0-34.9, adult; Z79.4 Long term (current) use of insulin; Z79.84 Long term (current) use of oral hypoglycemic drugs; Z79.85 Long-term (current) use of injectable non-insulin antidiabetic drugs | CPT/HCPCS: 82947; 99212 ==

== ENCOUNTER 2024-01-25 14:46 | Outpatient (REF) | payer MEDICARE, MEDICAID, SELFPAY ==
--- NOTE | ~2024-01-25 | XR_ITS ---
EXAMINATION: XR CHEST CLINICAL INFORMATION: R05.9 - Cough, unspecified COMPARISON: Chest radiograph 10/14/[address] chest 08/10/2023 TECHNIQUE: 2 views of the chest were obtained. FINDINGS: No significant abnormality is noted involving the heart, lungs, mediastinum, bony thorax or soft tissues. XR/XR chest 2V IMPRESSION: Unremarkable examination. Electronically signed by: Ricco Wild MD 01/25/2024 04:53 PM [facility]
== END 2024-01-25 14:47 | disposition home or self-care (01) ==
LOC: HO.XRAY 14:46
PROVIDERS: PCP Internal Medicine; Visit Provider Nurse Practitioner Family
DX: J44.9 Chronic obstructive pulmonary disease, unspecified (principal); R05.9 Cough, unspecified; R91.8 Other nonspecific abnormal finding of lung field; F81.9 Developmental disorder of scholastic skills, unspecified; Z87.09 Personal history of other diseases of the respiratory system; Z87.891 Personal history of nicotine dependence; Z99.81 Dependence on supplemental oxygen
CPT/HCPCS: 71046; 99212

== ENCOUNTER 2024-01-25 14:46 | Outpatient (AMB) | payer MEDICARE, MEDICAID, SELFPAY ==
[2024-01-25 14:49] VITALS: BP 164/88; PULSE 103; O2SAT 95; BMI 34.9
--- NOTE | 2024-01-25 14:49 | A.OFFVIS_ITS ---
Vital Signs 01/25/24 14:49 Height 5 ft 7 in Weight 222 lb 10.67 oz BMI 34.9 BP 164/88 H Blood Pressure Location Lt brachial Position Sitting Pulse 103 H Pulse Source Pulse Oximeter Pulse Oximetry (%) 95 Oxygen Delivery Method Nasal Cannula Oxygen Flow Rate 2 Intake Visit Reasons: COPD Allergies No Known Allergies Allergy (Unknown, Verified 01/25/24 14:52) NOT APPLICABLE HPI HPI COPD: Details: Curry is a pleasant 63 year old male, former smoker, quit 5 years ago, with approximately 40 pack year history and underlying COPD on 2L supplemental oxygen. He has cognitive delays, lives with sister Mariam, who is present today. He has had approximately two COPD exacerbations per year requiring hospitalizations for acute respiratory failure with hypercapnia. He was discharged on NIV for hypercapnia, which he is unable to tolerate. We also trialed nocturnal supplemental oxygen however he also has difficulties with compliance. He denies any hospitalizations or visits to urgent care since the last visit. He has been using duoneb however infrequently with moderate control of symptoms. Denies any wheezing or labored breathing. however sister does note recent intermittent dry cough and oxygen saturation decreased in the 70s over the weekend. Denies any fevers, chills, sick contacts. [facility] Medical History Obesity Type 2 diabetes mellitus with obesity COPD (chronic obstructive pulmonary disease) Cognitive developmental delay Diabetes mellitus Surgical History No pertinent past surgical history Family History Mother No problems noted. Father No problems noted. Social History Housing: House Patient Tobacco Use Status: Former Tobacco user Tobacco use type: Cigarette e-Cigarette/Vaping Use: Never Used Second Hand Smoke Exposure: No service: No Current occupational status: disabled Cognitive needs: Yes Hearing needs: No Vision needs: No Review of Systems Const Denies chills, Denies excessive sweating, Denies fever(s), Denies headache(s) and Denies night sweats Eyes Denies dry eyes, Denies irritation and Denies itchy eyes ENT Reports Normal hearing present, Denies headache(s), Denies nasal congestion, Denies nasal discharge, Denies post nasal drip and Denies sore throat Card Denies chest pain, Denies chest pain at rest, Denies chest pain with activity, Denies claudication, Denies leg edema, Denies dyspnea, Denies dyspnea on exertion, Denies orthopnea and Denies paroxysmal nocturnal dyspnea Resp Denies chest congestion, Denies excessive phlegm production, Denies pain on inspiration, Denies pain with cough, Denies dyspnea, Denies dyspnea on exertion, Denies stridor and Denies wheezing Musc Denies myalgias Neuro Reports Normal hearing present and Denies headache(s) Endo Denies excessive sweating Jasbir/Lymph Denies lymphadenopathy Aller/Immun Denies itchy eyes, Denies seasonal rhinorrhea and Denies wheezing Physical Exam Vital Signs: Last Vital Signs Pulse 103 H 01/25/24 14:49 BP 164/88 H 01/25/24 14:49 Pulse Ox 95 01/25/24 14:49 Oxygen Delivery Method Nasal Cannula 01/25/24 14:49 Oxygen Flow Rate 2 01/25/24 14:49 BMI result Body Mass Index 34.9 Neuro Cranial nerves: Yes Normal hearing present Assessment & Plan Assessment & Plan (1) COPD (chronic obstructive pulmonary disease): Code(s): J44.9 - Chronic obstructive pulmonary disease, unspecified Category: Medical (2) History of acute respiratory failure: Code(s): Z87.09 - Personal history of other diseases of the respiratory system Category: Medical (3) Cognitive developmental delay: Code(s): F81.9 - Developmental disorder of scholastic skills, unspecified Category: Medical (4) Personal history of tobacco use: Code(s): Z87.891 - Personal history of nicotine dependence Category: Social Hx (5) On supplemental oxygen therapy: Code(s): Z99.81 - Dependence on supplemental oxygen Category: Medical (6) Multiple pulmonary nodules: Code(s): R91.8 - Other nonspecific abnormal finding of lung field Category: Medical Plan Sister reports moderate control of respiratory symptoms using 2L supplemental oxygen and duoneb. Encouraged to use Duoneb BID, as using infrequently at this time. Patient poor historian however sister mentions new onset intermittent dry cough and recent hypoxia, will send for CXR today. All questions were answered and patient is in agreement if plan. Will follow up in 3 months or sooner if needed. Orders: Orders XR chest 2V Today R05.9 - Cough, unspecified Coding Level of Care Code Est Pt Level 3 (41694) Diagnoses COPD (chronic obstructive pulmonary disease) J44.9 History of acute respiratory failure Z87.09 Cognitive developmental delay F81.9 Personal history of tobacco use Z87.891 On supplemental oxygen therapy Z99.81 Multiple pulmonary nodules R91.8
== END 2024-01-25 15:34 | disposition home or self-care (01) ==
PROVIDERS: PCP Internal Medicine; Visit Provider Nurse Practitioner Family
DX: J44.9 Chronic obstructive pulmonary disease, unspecified (principal); Z87.09 Personal history of other diseases of the respiratory system; F81.9 Developmental disorder of scholastic skills, unspecified; Z87.891 Personal history of nicotine dependence; Z99.81 Dependence on supplemental oxygen; R91.8 Other nonspecific abnormal finding of lung field
CPT/HCPCS: 99213

== ENCOUNTER 2024-02-23 15:29 | Outpatient (AMB) | payer MEDICARE, MEDICAID, SELFPAY ==
[2024-02-23 15:31] VITALS: BP 138/72; PULSE 92; BMI 34.1
--- NOTE | 2024-02-23 15:31 | MHC.OFFVIS ---
Vital Signs 02/23/24 15:31 Height 5 ft 7 in Weight 217 lb 9.54 oz BMI 34.1 BP 138/72 Blood Pressure Location Lt brachial Position Sitting Pulse 92 Pulse Source Pulse Oximeter Intake Visit Reasons: DM/LVM Intake Note: Patient present today to follow up on Type 2 Diabetes Mellitus. Last Diabetic Eye exam: 04/2023 Last Podiatry Visit: Does not see a Material Controller Random Glucose: 167 mg/dl HgA1C: 8.4% 02/23/24 Print Designer Required: No Accompanied by: Sister/ School Speech Language Pathologist Allergies No Known Allergies Allergy (Unknown, Verified 02/23/24 15:47) NOT APPLICABLE HPI Comments Details: 63 YO M who is seen in consultation for T2DM at the request of PCP. Patient is not medically competent as accompanied by his sister and navigator Initially diagnosed with T2DM in 10 yrs . No seen endo before Was initially started on treatment with metformin. Current regimen metformin 1000 mg BID Actos 45 mg QD Lantus 60 units Humalog correction for point care > 200 6 units, >250 8 units and>300 10 units not taking Trulicity 3 mg Qwkly Farxiga 5 mg QD Aleah download shows she is checking with the sensor 67% of the time. Average glucose is 180 with G mi of 7.6% and variability of 32.5%. 60% range with 40% hyperglycemia and no hypoglycemia. Pen shows elevation in blood sugar post-breakfast No Reports low sugars . Most recent A1C [], [down] from prior [] on []. Family history of T2DM in parents Type 2 DM . Has eyes checked yearly, last eye exam 04/2023 , denies retinopathy. Denies neuropathy, not sees podiatry. Denies nephropathy, on PENNY/ARB. . Has HLD, Not on statin. Denies CAD. Not Had diabetes education. [facility] Medical History Obesity Type 2 diabetes mellitus with obesity COPD (chronic obstructive pulmonary disease) Cognitive developmental delay Diabetes mellitus Surgical History No pertinent past surgical history Family History Mother No problems noted. Father No problems noted. Social History Housing: House Patient Tobacco Use Status: Former Tobacco user Tobacco use type: Cigarette e-Cigarette/Vaping Use: Never Used Second Hand Smoke Exposure: No service: No Current occupational status: disabled Cognitive needs: Yes Hearing needs: No Vision needs: No Physical Exam Vital Signs: Last Vital Signs Pulse 92 02/23/24 15:31 BP 138/72 02/23/24 15:31 BMI result Body Mass Index 34.1 Absence of Cushingoid features. Absence of acromegalic features. Neck exam reveals nl size thyroid about 15 gms. No thyroid nodules palpable. No carotid bruits present. Lungs CTA. Heart S1 S2, Reg R/R. No M/R/ G. Skin exam reveals absence of vitiligo or acanthosis nigricans. Abdominal exam reveals Soft NT/ND with NA BS. No organomegaly present. Neck Other: . Extrem Other: Visual exam of foot performed. No ulcerations or open lesions. No onchomycosis, no callouses.Pulses 2 + distally Sensation intact to monofilament exam. Vibratory sensation sensed is intact with 128 Hz tuning fork Results AMB Hemoglobin A1c AMB Hemoglobin A1c 8.4 % Last Edit by SREEDHAR Harrell on 02/23/24 15:54 Results Reviewed Results Reviewed: Laboratory Last Values Glucose (Clinic) 167 mg/dL (60-115) H 02/23/24 15:44 Hgb A1c (Clinic) 8.4 % (4.0-6.0) H 02/23/24 15:47 Assessment & Plan Assessment & Plan (1) Diabetes mellitus: Comment: same meds Code(s): E11.9 - Type 2 diabetes mellitus without complications Category: Medical Plan: This is 62-year-old male with history of type 2 diabetes being treated with metformin, Actos, trulicity basal insulin with poor glycemic control and no known microvascular or macrovascular complications Plan is have patient take 6 units of Humalog prior to breakfast if point of care 100-150 and 8 units if point of care>150 . Will have patient follow up with Leonor Rice NP in 2 months Orders: Orders AMB Hemoglobin A1c 02/23/24 E11.69 - Type 2 diabetes mellitus with other specified complication, E66.9 - Obesity, unspecified Medications: New blood sugar diagnostic (OneTouch Ultra Test strips) As directed tests 2 X/day 50 ea 5RF Changed From lancets (OneTouch Delica Lancets) As directed 3 twice a day 100 ea 5RF To lancets As directed 3 twice a day 100 ea 5RF Coding Level of Care Code Est Pt Level 4 (94159) Complex EM visit Add On G2211 Diagnoses Diabetes mellitus E11.9
[2024-02-23 15:49] LABS: Glucose, Whole Blood 167 mg/dL (60-115)
== END 2024-02-23 15:53 | disposition home or self-care (01) ==
PROVIDERS: PCP Internal Medicine; Visit Provider Internal Medicine Endocrinology, Diabetes & Metabolism
DX: E11.9 Type 2 diabetes mellitus without complications (principal)
CPT/HCPCS: 99214; G2211

== ENCOUNTER → 2024-02-23 15:29 | Outpatient (BNVA) | payer MEDICARE, MEDICAID, SELFPAY | PROVIDERS: PCP Internal Medicine; Visit Provider Internal Medicine Endocrinology, Diabetes & Metabolism | DX: E11.9 Type 2 diabetes mellitus without complications (principal) | CPT/HCPCS: 82947; 83036; 99212 ==

== ENCOUNTER 2024-03-29 15:33 | Outpatient (AMB) | payer MEDICARE, MEDICAID, SELFPAY ==
--- NOTE | 2024-03-29 15:36 | A.OFFVIS_ITS ---
Vital Signs 03/29/24 15:37 Height 5 ft 7 in Weight 216 lb 0.848 oz BMI 33.8 BP 142/80 H Blood Pressure Location Rt brachial Position Sitting Pulse Source Pulse Oximeter Intake Visit Reasons: DM Intake Note: Patient presents today for a follow-up on Type 2 Diabetes Mellitus: Last Diabetic Eye exam: 04/2023 Last Podiatry Exam: Does not see a Low Pressure Boiler Operator Most recent HbA1c: 8.4%, 02/23/2024 Random Glucose- 196 mg/dL, Today Salvationist Required: No Accompanied by: Sister Allergies No Known Allergies Allergy (Unknown, Verified 02/23/24 15:47) NOT APPLICABLE HPI Comments Details: 63 YO M who is seen in f/u for T2DM at the request of PCP. Patient is not medically competent as accompanied by his sister flor. I Navigator is not present today. Was last seen in Endocrine Clinic 02/23/2024 with an A1c of 8.4% up from 7.6%. Initially diagnosed with T2DM in 10 yrs . No seen endo before Was initially started on treatment with metformin. Current regimen metformin 1000 mg BID Actos 45 mg QD Lantus 60 units Humalog correction for point care > 200 6 units, >250 8 units and>300 10 units not taking Trulicity 3 mg Qwkly Farxiga 5 mg QD Freestyle raymundo sensor 3 average glucose: 180 14 day continuous glucose sensor report reviewed Glucose Management indicator 7.6 % Time CGM active 67 % TIme in ranges: Eleven % very high (above 250) 29 % high (181-250) 60 % in range (70-180] 0 % low (69-55) 0 % very low (below 54) 32 0.3 Glucose variability overall in reasonable range has some bumps up with lunch (target <36%) No Reports low sugars . Most recent A1C [], [down] from prior [] on []. Family history of T2DM in parents Type 2 DM . Has eyes checked yearly, last eye exam 04/2023 , denies retinopathy. Denies neuropathy, does not see podiatry Has nephropathy, on PNENY-inhibitor 12/21/2023 eGFR>60 05/02 132 Has HLD, on statin. LDL 78 2023 Denies CAD. Has a nurse that works with him. [facility] Medical History Obesity Type 2 diabetes mellitus with obesity COPD (chronic obstructive pulmonary disease) Cognitive developmental delay Diabetes mellitus Surgical History No pertinent past surgical history Family History Mother No problems noted. Father No problems noted. Social History Housing: House Patient Tobacco Use Status: Former Tobacco user Tobacco use type: Cigarette e-Cigarette/Vaping Use: Never Used Second Hand Smoke Exposure: No service: No Current occupational status: disabled Cognitive needs: Yes Hearing needs: No Vision needs: No Physical Exam Vital Signs: Last Vital Signs BP 142/80 H 03/29/24 15:37 BMI result Body Mass Index 33.8 Const Other: Absence of Cushingoid features. Absence of acromegalic features. Pleasant affect answers questions. Poor historian. Neck exam reveals nl size thyroid about 15 gms. No thyroid nodules palpable. No carotid bruits present. Lungs CTA. Heart S1 S2, Reg R/R. No M/R G. Skin exam reveals absence of vitiligo or acanthosis nigricans. Multiple areas of excoriation on his arm. No redness or drainage. No edema. Results Reviewed Results Reviewed: Laboratory Last Values Glucose (Clinic) 196 mg/dL (60-115) H 03/29/24 15:42 Assessment & Plan Assessment & Plan (1) Diabetes mellitus: Code(s): E11.9 - Type 2 diabetes mellitus without complications Category: Medical Plan: 63-year-old type 2 diabetic with nephropathy presents with his sister who makes his healthcare decision. metformin 1000 mg BID Actos 45 mg QD Lantus 60 units Humalog correction for point care > 200 6 units, >250 8 units and>300 10 units not taking Trulicity 3 mg Qwkly Farxiga 5 mg QD The patient had an opportunity to ask questions regarding treatment plan. The patient expressed understanding and agreement with the above treatment plan. The patient is aware they should contact our office by phone for worsening glucose readings or for any low blood sugars which may warrant a change in diabetes medication. Compliance is encouraged with medications and any followup testing/consults which may have been ordered. Patient Instructions: Take 15 carb carbohydrate grams to treat a low sugar (3-4 glucose tablets, half a glass of juice or 15 carbohydrate grams of soft candy such as gummie snacks). Recheck your sugar in 15 minutes and re-treat again with 15 carbohydrate grams if low or still with symptoms. Do not drive a car or operate machinery if you do not know what your blood sugar is, if it is low or in excess of 300. The patient was counseled to achieve a target A1C of 7% (154 avg). Fasting blood sugars should be 90-130 in the morning and less than 180 two hours after meals. Reviewed the relationship between poor diabetic control and the development of complications. Check your feet daily looking for any signs of infection, drainage, redness, ulceration and seek medical attention if this occurs. Break in shoes gradually and do not wear open-toed shoes or walk stocking footed or barefooted. Coding Level of Care Code Est Pt Level 4 (84015) Complex EM visit Add On G2211 Diagnoses Diabetes mellitus E11.9 Time Spent (min) 30 Comment Time spent reviewing labs/provider notes, face to face, chart doc
[2024-03-29 15:37] VITALS: BP 142/80; BMI 33.8
[2024-03-29 15:47] LABS: Glucose, Whole Blood 196 mg/dL (60-115)
== END 2024-03-29 16:12 | disposition home or self-care (01) ==
PROVIDERS: PCP Internal Medicine; Visit Provider Nurse Practitioner Adult Health
DX: E11.9 Type 2 diabetes mellitus without complications (principal)
CPT/HCPCS: 99214; G2211

== ENCOUNTER → 2024-03-29 15:33 | Outpatient (BNVA) | payer MEDICARE, MEDICAID, SELFPAY | PROVIDERS: PCP Internal Medicine; Visit Provider Nurse Practitioner Adult Health | DX: E11.9 Type 2 diabetes mellitus without complications (principal); Z79.4 Long term (current) use of insulin; Z79.899 Other long term (current) drug therapy | CPT/HCPCS: 82947; 99212 ==

== ENCOUNTER 2024-05-10 15:49 | Outpatient (AMB) | payer MEDICARE, MEDICAID, SELFPAY ==
[2024-05-10 15:52] VITALS: BP 120/78; PULSE 98; O2SAT 94; BMI 33.8
--- NOTE | 2024-05-10 15:52 | A.OFFVIS_ITS ---
Vital Signs 05/10/24 15:52 Height 5 ft 7 in Weight 216 lb 0.848 oz BMI 33.8 BP 120/78 Blood Pressure Location Rt brachial Position Sitting Pulse 98 Pulse Source Pulse Oximeter Pulse Oximetry (%) 94 Oxygen Delivery Method Room Air Intake Visit Reasons: Type 2 diabetes mellitus Intake Note: Patient presents today for a follow-up on Type 2 Diabetes Mellitus: Last Diabetic Eye exam: 04/2023 Last Podiatry Exam: Does not see a Refrigeration Service Technician Most recent HbA1c: 8.4%, 02/23/2024 Random Glucose- 139 mg/dL, Today Br[employer] Tube Bender Required: No Accompanied by: Sister Allergies No Known Allergies Allergy (Unknown, Verified 05/10/24 15:56) NOT APPLICABLE HPI Comments Details: 63 YO M who is seen in f/u for T2DM at the request of PCP. Patient is not medically competent and is accompanied by his sister today. Navigator is not present today. Was last seen in Endocrine Clinic 03/29/23 with an A1c of 8.4% up from 7.6%. Farxiga has been added. Initially diagnosed with T2DM in 10 yrs . Not seen by endo before Was initially started on treatment with metformin. Current regimen metformin 1000 mg BID Actos 45 mg QD Lantus 60 units Humalog correction for point care > 200 6 units, >250 8 units and>300 10 units Trulicity 3 mg Qwkly Farxiga 5 mg QD Freestyle aleah sensor 3 average glucose: 176 14 day continuous glucose sensor report reviewed with no lows readings running 200 towards the jordy has been off farxiga for a week. No Reports low sugars . Family history of T2DM in parents Type 2 DM . Has eyes checked yearly, last eye exam 04/2023 , denies retinopathy. Denies neuropathy, does not see podiatry Has nephropathy, on PENNY-inhibitor 12/21/2023 eGFR>60 05/02 132 Has HLD, on statin. LDL 78 2023 Denies CAD. Has a nurse that works with him. [facility] Medical History Obesity Type 2 diabetes mellitus with obesity COPD (chronic obstructive pulmonary disease) Cognitive developmental delay Diabetes mellitus Surgical History No pertinent past surgical history Family History Mother No problems noted. Father No problems noted. Social History Housing: House Patient Tobacco Use Status: Former Tobacco user Tobacco use type: Cigarette e-Cigarette/Vaping Use: Never Used Second Hand Smoke Exposure: No service: No Current occupational status: disabled Cognitive needs: Yes Hearing needs: No Vision needs: No Physical Exam Vital Signs: Last Vital Signs Pulse 98 05/10/24 15:52 BP 120/78 05/10/24 15:52 Pulse Ox 94 05/10/24 15:52 Oxygen Delivery Method Room Air 05/10/24 15:52 BMI result Body Mass Index 33.8 Const Other: Absence of Cushingoid features. Absence of acromegalic features. Neck exam reveals nl size thyroid about 15 gms. No thyroid nodules palpable. Heart S1 S2, Reg R/R. No M/R G. Skin exam reveals absence of vitiligo or acanthosis nig ricans. Follows commands, pleasant poor historian Visual exam of foot performed. No ulcerations or open lesions. No inter digit maceration or fissuring. + onychomycosis with thickened nails no callouses. Sensation intact to monofilament exam. Vibratory sensation is normal with 128 Hz tuning fork. Results Reviewed Results Reviewed: Laboratory Last Values Glucose (Clinic) 139 mg/dL (60-115) H 05/10/24 15:58 Assessment & Plan Assessment & Plan (1) Type 2 diabetes mellitus with obesity: Code(s): E11.69 - Type 2 diabetes mellitus with other specified complication; E66.9 - Obesity, unspecified Category: Medical Plan: seee below Plan 63-year-old type 2 diabetic with nephropathy under the direction of his sisters care. He is now on a [employer] Aleah sensor. Continue all current medications and restart Farxiga The patient had an opportunity to ask questions regarding treatment plan. The patient expressed understanding and agreement with the above treatment plan. The patient is aware they should contact our office by phone for worsening glucose readings or for any low blood sugars which may warrant a change in diabetes medication. Compliance is encouraged with medications and any followup testing/consults which may have been ordered. Referred to Podiatry Orders: Referrals Podiatry Referral E11.69 - Type 2 diabetes mellitus with other specified complication, E66.9 - Obesity, unspecified Medications: New insulin lispro (Humalog KwikPen (U-100) Insulin) sliding scale coverage tid with meals >200 6 units greater than 250 8 units greater than 300 10 units subcutaneously use as directed; 30 days 6 mL 2RF Changed From dapagliflozin propanediol (Farxiga) 5 mg PO DAILY 30 tabs 1RF To dapagliflozin propanediol (Farxiga) 5 mg PO DAILY 30 days 30 tabs 2RF From pen needle, diabetic (BD Ultra-Fine Original Pen Needle) to use with insulin once a day 100 ea 8RF DX: E11.9 To pen needle, diabetic (BD Ultra-Fine Original Pen Needle) qid as needed 200 ea 8RF DX: E11.9 Patient Instructions: Carry a sugar source Check your feet daily looking for any signs of infection, drainage, redness, ulceration and seek medical attention if this occurs. Break in shoes gradually and do not wear open-toed shoes or walk stocking footed or barefooted. Coding Level of Care Code Est Pt Level 4 (17420) Complex EM visit Add On G2211 Diagnoses Type 2 diabetes mellitus with obesity E11.69; E66.9 Time Spent (min) 30 Comment Time spent reviewing labs/provider notes, face to face, chart doc
[2024-05-10 16:02] LABS: Glucose, Whole Blood 139 mg/dL (60-115)
== END 2024-05-10 16:42 | disposition home or self-care (01) ==
PROVIDERS: PCP Internal Medicine; Visit Provider Nurse Practitioner Adult Health
DX: E11.69 Type 2 diabetes mellitus with other specified complication (principal); E66.9 Obesity, unspecified
CPT/HCPCS: 99214; G2211

== ENCOUNTER → 2024-05-10 15:49 | Outpatient (BNVA) | payer MEDICARE, MEDICAID, SELFPAY | PROVIDERS: PCP Internal Medicine; Visit Provider Nurse Practitioner Adult Health | DX: E11.69 Type 2 diabetes mellitus with other specified complication (principal); E66.9 Obesity, unspecified; Z68.33 Body mass index [BMI] 33.0-33.9, adult; Z79.84 Long term (current) use of oral hypoglycemic drugs; Z79.85 Long-term (current) use of injectable non-insulin antidiabetic drugs | CPT/HCPCS: 82947; 99212 ==

== ENCOUNTER 2024-06-06 15:43 | Outpatient (AMB) | payer MEDICARE, MEDICAID, SELFPAY ==
[2024-06-06 15:49] VITALS: BP 134/78; PULSE 93; O2SAT 96; BMI 33.7
--- NOTE | 2024-06-06 15:49 | MHC.OFFVIS ---
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: Supervisor [employer]attoir Offered & Declined Tableau Analyst: Tableau Analyst offered & declined Accompanied by: Sister Allergies No Known Allergies Allergy (Unknown, Verified 06/06/24 15:56) NOT APPLICABLE Medication List - Last Reconciled 06/06/24 by Sandi Latif LPN albuterol sulfate 2.5 mg (3 mL) inhalation Q4H PRN atorvastatin 10 mg PO BEDTIME Basaglar KwikPen U-100 Insulin (insulin glargine) 60 units (0.6 mL) subcut QPM 30 days NS blood sugar diagnostic ([employer] Ultra Test strips) USE TO CHECK BLOOD SUGARS ONCE EVERY DAY blood sugar diagnostic (OneTouch Ultra Test strips) As directed twice a day blood sugar diagnostic (OneTouch Ultra Test strips) As directed tests 2 X/day blood-glucose meter ([employer] Ultra2 Meter kit) As directed clonazepam 0.5 mg PO dapagliflozin propanediol (Farxiga) 5 mg PO DAILY 30 days dulaglutide (Trulicity) 3 mg (0.5 mL) subcut QWEEK flash glucose scanning reader (Open[employer]Style Aleah 2 [place]) As directed flash glucose sensor (FreeStyle Aleah 2 Sensor kit) USE DIRECTED insulin lispro (Humalog KwikPen (U-100) Insulin) sliding scale coverage tid with meals >200 6 units greater than 250 8 units greater than 300 10 units subcutaneously use as directed; 30 days ipratropium-albuterol 0.5 mg-3 mg(2.5 mg base)/3 mL 3 mL inhalation BID PRN lancets As directed 3 twice a day lisinopril 10 mg PO DAILY metformin 1,000 mg PO BID 90 days mirtazapine 15 mg PO BEDTIME nebulizers to use every 4 hours for shortness of breathe and wheezing pen needle, diabetic (BD Ultra-Fine Original Pen Needle) qid as needed pioglitazone 45 mg PO DAILY 30 days tamsulosin 0.4 mg PO BEDTIME HPI HPI COPD: Details: Curry is a pleasant 63 year old male, former smoker, quit 5+ years ago, with approximately 40 pack year history and underlying COPD on 2L supplemental oxygen. He has cognitive delays, lives with sister Mariam, who is present today. Previously recommendations made for NIV due to hospitalizations for acute respiratory failure with hypercapnia however he could not tolerate. He has been using 2L supplemental oxygen with exertion and attempts to use nocturnal supplemental oxygen however he also has difficulties with compliance. Oxygen saturation has been maintained >92% per sister. At this time, patient denies any respiratory symptoms, which sister confirms. He has been using nebulized therapy a few times a week with good effect. He denies any hospitalizations or visits to urgent care since the last visit. [facility] Medical History Obesity Type 2 diabetes mellitus with obesity COPD (chronic obstructive pulmonary disease) Cognitive developmental delay Diabetes mellitus Surgical History No pertinent past surgical history Family History Mother No problems noted. Father No problems noted. Social History Housing: House Patient Tobacco Use Status: Former Tobacco user Tobacco use type: Cigarette e-Cigarette/Vaping Use: Never Used Second Hand Smoke Exposure: No service: No Current occupational status: disabled Cognitive needs: Yes Hearing needs: No Vision needs: No Review of Systems Const Denies chills, Denies excessive sweating, Denies fever(s), Denies headache(s) and Denies night sweats Eyes Denies dry eyes, Denies irritation and Denies itchy eyes ENT Reports Normal hearing present, Denies headache(s), Denies nasal congestion, Denies nasal discharge, Denies post nasal drip and Denies sore throat Card Denies chest pain, Denies chest pain at rest, Denies chest pain with activity, Denies claudication, Denies leg edema, Denies dyspnea, Denies dyspnea on exertion, Denies orthopnea and Denies paroxysmal nocturnal dyspnea Resp Denies chest congestion, Denies excessive phlegm production, Denies pain on inspiration, Denies pain with cough, Denies dyspnea, Denies dyspnea on exertion, Denies stridor and Denies wheezing Musc Denies myalgias Neuro Reports Normal hearing present and Denies headache(s) Endo Denies excessive sweating Jasbir/Lymph Denies lymphadenopathy Aller/Immun Denies itchy eyes, Denies seasonal rhinorrhea and Denies wheezing Physical Exam Vital Signs: Last Vital Signs Pulse 93 06/06/24 15:49 BP 134/78 06/06/24 15:49 Pulse Ox 96 06/06/24 15:49 Oxygen Delivery Method Nasal Cannula 06/06/24 15:49 Oxygen Flow Rate 2 06/06/24 15:49 BMI result Body Mass Index 33.7 Const Other: wearing supplemental oxygen General: cooperative, healthy appearing, comfortable, no acute distress, well developed and alert Nutritional Appearance: obese HEENT Head: Yes normal to inspection, Yes normocephalic and Yes atraumatic Ears: hearing grossly normal bilaterally and external ears normal Eyes General: appearance normal, both eyes and all related structures Eyelids: Yes eyelids normal Sclerae: sclerae normal EOM: EOMs intact bilaterally Neck Neck: Yes normal visual inspection and Yes no lymphadenopathy Lymphatic: no lymphadenopathy noted Chest Chest palpation & inspection: normal inspection of the chest Resp Effort & Inspection: normal respiratory effort, able to speak in complete sentences, no audible wheezes, no cough, no stridor, not tachypneic, no tripod positioning and no use of accessory muscles Auscultation: diminished lung sounds Cardio Jugular venous distension: no JVD Rate: regular rate Skin Other: warm, dry General skin exam: no rashes or lesions noted Neuro Cranial nerves: Yes Normal hearing present Cognition (Neuro): normal cognition Gait exam (Neuro): Normal gait present Extrem General: Yes normal to inspection, Yes capillary refill normal, Yes no clubbing, cyanosis or edema and Yes no pedal edema Psych Appearance: grossly normal and well kempt Speech and movement: Normal speech and movement present and Clear speech present Attitude: cooperative Insight: Limited insight present (Psych) Judgement: Limited judgement present (Psych) Assessment & Plan Assessment & Plan (1) COPD (chronic obstructive pulmonary disease): Code(s): J44.9 - Chronic obstructive pulmonary disease, unspecified Category: Medical (2) History of acute respiratory failure: Code(s): Z87.09 - Personal history of other diseases of the respiratory system Category: Medical (3) Cognitive developmental delay: Code(s): F81.9 - Developmental disorder of scholastic skills, unspecified Category: Medical (4) Personal history of tobacco use: Code(s): Z87.891 - Personal history of nicotine dependence Category: Social Hx (5) On supplemental oxygen therapy: Code(s): Z99.81 - Dependence on supplemental oxygen Category: Medical (6) Multiple pulmonary nodules: Code(s): R91.8 - Other nonspecific abnormal finding of lung field Category: Medical Plan At this time, patient well controlled on current regimen, advised to continue. Prior chest CT revealed moderate emphysematous changes as well as multiple pulmonary nodules <4mm and is scheduled for repeat CT to assess stability in 08/2024. All questions were answered and patient is in agreement if plan. Will follow up to review results or sooner if needed. Coding Level of Care Code Est Pt Level 4 (54766) Diagnoses COPD (chronic obstructive pulmonary disease) J44.9 History of acute respiratory failure Z87.09 Cognitive developmental delay F81.9 Personal history of tobacco use Z87.891 On supplemental oxygen therapy Z99.81 Multiple pulmonary nodules R91.8
== END 2024-06-06 16:07 | disposition home or self-care (01) ==
LOC: HO.HPS 15:44
PROVIDERS: PCP Internal Medicine; Visit Provider Nurse Practitioner Family
DX: J44.9 Chronic obstructive pulmonary disease, unspecified (principal); Z87.09 Personal history of other diseases of the respiratory system; F81.9 Developmental disorder of scholastic skills, unspecified; Z87.891 Personal history of nicotine dependence; Z99.81 Dependence on supplemental oxygen; R91.8 Other nonspecific abnormal finding of lung field
CPT/HCPCS: 99214

== ENCOUNTER → 2024-06-06 15:43 | Outpatient (BNVA) | payer MEDICARE, MEDICAID, SELFPAY | PROVIDERS: PCP Internal Medicine; Visit Provider Nurse Practitioner Family | DX: J44.9 Chronic obstructive pulmonary disease, unspecified (principal); F81.9 Developmental disorder of scholastic skills, unspecified; R91.8 Other nonspecific abnormal finding of lung field; Z87.891 Personal history of nicotine dependence; Z87.09 Personal history of other diseases of the respiratory system; Z99.81 Dependence on supplemental oxygen | CPT/HCPCS: 99212 ==

== ENCOUNTER 2024-08-09 15:33 | Outpatient (AMB) | payer MEDICARE, MEDICAID, SELFPAY ==
--- NOTE | 2024-08-09 08:24 | A.OFFVIS_ITS ---
Vital Signs 08/09/24 15:39 Height 5 ft 7 in BMI Reason not done Patient refused/unable BP 154/98 H Blood Pressure Location Rt brachial Position Sitting Pulse 94 Pulse Source Pulse Oximeter Pulse Oximetry (%) 95 Oxygen Delivery Method Room Air Intake Visit Reasons: DM Intake Note: Patient presents today for a follow-up on Type 2 Diabetes Mellitus: Last Diabetic Eye exam: 06/03/2023, DUE Last Podiatry Exam: Does not see a Environmental Control Administrator Most recent HbA1c: 7.8%, 08/09/2024 Random Glucose- 116 mg/dL, Today Dental Ceramist Assistant Required: No Accompanied by: SISTERS Allergies No Known Allergies Allergy (Unknown, Verified 08/09/24 15:38) NOT APPLICABLE HPI Comments Details: 63 YO M who is seen in f/u for T2DM . Patient is not medically competent and is accompanied by his sister today and his nurse Helen. He is cognitively impaired and lives with his sister. His brother also helps with caretaking. Was last seen in [facility] 05/11/23 with an A1c of 8.4% up from 7.6%. Farxiga has been added. Initially diagnosed with T2DM in 10 yrs . Not seen by endo before Was initially started on treatment with metformin. Current regimen metformin 1000 mg BID Actos 45 mg QD Lantus 60 units Humalog correction for point care > 200 6 units, >250 8 units and>300 10 units Trulicity 3 mg Qwkly Farxiga 5 mg QD Freestyle Aleah . Freestyle aleah sensor 3 average glucose: 180 14 day continuous glucose sensor report reviewed Glucose Management indicator 7.8 % TIme in ranges: Eleven % very high (above 250) 29 % high (181-250) 60 % in range (70-180] 0 % low (69-55) 0 % very low (below 54) Interpretation of CGMS; no hypos are appearing on the overall trend tele but in looking at with the daily printout he is having some morning lows with escalating glucose throughout the day He has had some symptomatic lows Family history of T2DM in parents Type 2 DM . Has eyes checked yearly, last eye exam 04/2023 , denies retinopathy. sister will make an appt Denies neuropathy, does not see podiatry Has nephropathy, on PENNY-inhibitor 12/21/2023 eGFR>60 05/02 132 Has HLD, on statin. LDL 78 2023 Denies CAD. [facility] Medical History Obesity Type 2 diabetes mellitus with obesity COPD (chronic obstructive pulmonary disease) Cognitive developmental delay Diabetes mellitus Surgical History No pertinent past surgical history Family History Mother No problems noted. Father No problems noted. Social History Housing: House Patient Tobacco Use Status: Former Tobacco user Tobacco use type: Cigarette e-Cigarette/Vaping Use: Never Used Second Hand Smoke Exposure: No service: No Current occupational status: disabled Cognitive needs: Yes Hearing needs: No Vision needs: No Physical Exam Vital Signs: Last Vital Signs Pulse 94 08/09/24 15:39 BP 154/98 H 08/09/24 15:39 Pulse Ox 95 08/09/24 15:39 Oxygen Delivery Method Room Air 08/09/24 15:39 Const Other: Answers questions with one-word answers, pleasant maintains eye contact Absence of Cushingoid features. Absence of acromegalic features. Neck exam reveals nl size thyroid about 15 gms. No thyroid nodules palpable. No carotid bruits present. Lungs CTA. Heart S1 S2, Reg R/R. No M/R G. Skin exam reveals absence of vitiligo or acanthosis nigricans. No edema Results AMB Hemoglobin A1c AMB Hemoglobin A1c 7.8 % Last Edit by SREEDHAR Dumont on 08/09/24 15:48 Results Reviewed Results Reviewed: Laboratory Last Values Glucose (Clinic) 116 mg/dL (60-115) H 08/09/24 15:40 Hgb A1c (Clinic) 7.8 % (4.0-6.0) H 08/09/24 15:42 Assessment & Plan Assessment & Plan (1) Type 2 diabetes mellitus with obesity: Code(s): E11.69 - Type 2 diabetes mellitus with other specified complication; E66.9 - Obesity, unspecified Category: Medical Plan: 63-year-old type 2 diabetic with failure to achieve A1c. I would recommend that we switch over to Tresiba insulin as he is having some lows in the morning followed by escalating readings throughout the day. The Tresiba will smooth out his numbers, eliminating lows at night and improving glucose control later in the day Referred to Podiatry I have also sent a prescription for nasal spray in the event that he has a hypoglycemic episode at home He should also be upgraded to a freestyle Aleah 3+ as freestyle 2 is being discontinued. I will send a workload request to medical radiation therapist Ashley Min to see if we can use reliable diabetes for this upgrade. He does use a reader Orders: Orders AMB Hemoglobin A1c 08/09/24 E11.9 - Type 2 diabetes mellitus without complications Referrals Podiatry Referral E11.69 - Type 2 diabetes mellitus with other specified complication, E66.9 - Obesity, unspecified Medications: New insulin degludec (Tresiba FlexTouch U-200 insulin) 60 units (0.3 mL) subcut BEDTIME 30 days 9 mL 6RF glucagon 3 mg/actuation (Baqsimi) May repeat in 15 minutes x1 3 mg intranasal ONCE 30 days PRN 2 ea 1RF Unresponsive hypoglycemia MDD 6mg On Hold Basaglar KwikPen U-100 Insulin (insulin glargine) Hold Comment: Doctor's Order 60 units (0.6 mL) subcut QPM 30 days 18 mL 10RF NS Coding Level of Care Code Est Pt Level 4 (74082) Complex EM visit Add On G2211 Diagnoses Type 2 diabetes mellitus with obesity E11.69; E66.9 Time Spent (min) 30 Comment Time spent reviewing labs/provider notes, face to face, chart doc
[2024-08-09 15:39] VITALS: BP 154/98; PULSE 94; O2SAT 95
[2024-08-09 15:44] LABS: Glucose, Whole Blood 116 mg/dL (60-115)
== END 2024-08-09 16:05 | disposition home or self-care (01) ==
LOC: HO.ENCR 15:34
PROVIDERS: PCP Internal Medicine; Visit Provider Nurse Practitioner Adult Health
DX: E11.69 Type 2 diabetes mellitus with other specified complication (principal); E66.9 Obesity, unspecified
CPT/HCPCS: 99214; G2211

== ENCOUNTER → 2024-08-09 15:33 | Outpatient (BNVA) | payer MEDICARE, MEDICAID, SELFPAY | PROVIDERS: PCP Internal Medicine; Visit Provider Nurse Practitioner Adult Health | DX: E11.69 Type 2 diabetes mellitus with other specified complication (principal); E66.9 Obesity, unspecified | CPT/HCPCS: 82947; 83036; 99212 ==

== ENCOUNTER 2024-09-29 11:17 | Outpatient (AMB) | payer MEDICARE, MEDICAID, SELFPAY ==
--- NOTE | 2024-09-29 11:24 | AM.OFFVISMDC ---
Intake Vital Signs 09/29/24 11:25 Height 5 ft 7 in Weight 215 lb 8 oz BMI 33.7 BP 116/58 L Blood Pressure Location Lt brachial Position Sitting Pulse 96 Pulse Source Pulse Oximeter Temp 97.2 F Temp Source Temporal Artery Scan Pulse Oximetry (%) 96 Oxygen Delivery Method Room Air Intake Visit Reasons: AWV/ shay DR. Alves Threader Operator Required: No Accompanied by: Brother Allergies No Known Allergies Allergy (Unknown, Verified 09/29/24 11:52) NOT APPLICABLE HPI AWV/ shay DR. Alves HPI Details The patient is 64 year old cognitive developmental delay male. Presenting for Medicare Wellness Visit. He accompanied by his brother and his nurse everton. The [facility] reviewed, HCP form is on file. The MOLST form was given the patient's brother, reports they are pursuing guardianship. Explained to him that this could be filled out after guardianship has been established. Dentist: up to date 02/2024 Eye: 09/14/24 Snellen: Right: Left: Corrected vision:no STI screening:n/a Colonoscopy:due, will try cologuard because Pap Smer:n/a PHQ-9: Flu: up to date COVID: x4 Tdap:due-given in office today Diet:Diet diet Exercise:walks in the yard The patient is a 64-year-old male presenting for a routine wellness visit and management of chronic conditions. The patient has a history of diabetes mellitus, which is managed with a diabetic diet and medication. His A1c was previously in the 8 range but has improved to 7.8 as of August 09, indicating better glycemic control. He follows up with endocrinology every three to six months for diabetes management, and his cholesterol levels are currently well-controlled. The patient was noted to have anemia and hyponatremia in previous lab results. These findings were identified during routine blood work conducted last year. There is a family history of prostate cancer, with the patient's father having from the condition. The patient is followed by urology BPH and his brother had prostatectomy performed a few years ago. Preventative care measures include regular vaccinations, with the patient being up-to-date on flu, pneumonia, and COVID-19 vaccines. He is also scheduled for a Cologuard test for colon cancer screening. oxygen 2 liters n/c [facility] he has enlarge prostate, father of prostate and brother had to have his prostate removed flinches when pressed on right upper quadrant. HPI Comments History of Present Illness Details Reviewed past medical history-yes reviewed surgical/hospitalization history-yes reviewed current medications-yes Home Safety throw rugs? yes grab bars?yes raised toilet seat? yes working smoke detectors? yes Activities of daily living difficult bathing or showering? needs reminders and physical assistance at time difficulty dressing? Needs reminders and physical as times difficulty using the toilet? no-some functional incontinence, needs reminders difficult to get in and out of bed? no difficulty walking? for lung distances-needs oxygen Received help from other person's with any of the above task?yes Instrumental activities of daily living Uses telephone-no Gets to place out of walking distance- no go shopping for groceries-no prepares own meals-no does own laundry-no does own housework-no manages own money-no currently takes medication-yes End of life planning discussed advanced directives-yes advanced directives on file? no discussed wishes expressed in advanced directives. going through guardianship Fall risk have you had any falls with injuries in the past year? no have you had 2 or more falls in the past year?no fall risk assessment:yes [facility] Medical History Obesity Type 2 diabetes mellitus with obesity COPD (chronic obstructive pulmonary disease) Cognitive developmental delay Diabetes mellitus Surgical History No pertinent past surgical history Family History Mother No problems noted. Father No problems noted. Social History Housing: House Patient Tobacco Use Status: Former Tobacco user Tobacco use type: Cigarette e-Cigarette/Vaping Use: Never Used Second Hand Smoke Exposure: No service: No Current occupational status: disabled Cognitive needs: Yes Hearing needs: No Vision needs: No Questionnaire Medicare Wellness Checkup What is your age?: 65-69 (64) What gender do you identify with?: male During the past 4 weeks, how much have you been bothered by emotional problems such as feeling anxious, depressed, irritable, sad or downhearted, and blue?: not at all During the past 4 weeks, has your physical & emotional health limited your social activities with family, friends, neighbors, or groups?: not at all During the past 4 weeks, how much bodily pain have you generally had?: no pain During the past 4 weeks, was someone available to help you if you needed & wanted help?: yes, as much as I wanted During the past 4 weeks, what was the hardest physical activity you could do for at least 2 minutes?: very light Can you get to places out of walking distance without help? (For eg., can you travel alone on buses, taxis or drive your car?): No Can you go shopping for groceries or clothes without someone's help?: No Can you prepare your own meals?: Yes Can you do your housework without help?: Yes Because of any health problems, do you need the help of another person with your personal care needs such as eating, bathing, dressing or getting around the house?: No Can you handle your own money without help?: No During the past 4 weeks, how would you rate your health in general?: good During the past 4 weeks how have things been going for you?: pretty well Are you having difficulties driving your car?: not applicable, I don't use a car Do you always fasten your seat belt when you are in a car?: yes, usually During past 4 weeks, have you been bothered by the following: never: Falling or dizzy when standing up, Trouble eating well? and Teeth or denture problems?, sometimes: Tiredness or fatigue? and always: Problems using the telephone? Have you fallen 2 or more times in the past year?: No Are you afraid of falling?: No Are you a smoker?: no During the past 4 weeks, how many drinks of wine, beer, or other alcoholic beverages did you have?: 1 drink or less per week Do you exercise for about 20 minutes 3 or more times a week?: no, I usually do not exercise this much Have you been given information to help with the following?: yes: Hazards in your house that might hurt you? and yes: Keeping track of your medications? How often do you have trouble taking medicines the way you have been told to take them?: I always take medicine as prescribed How confident are you that you can control & manage most of your health problems?: somewhat confident What is your race?: White Mini Mental State Exam (MMSE) Orientation What is the (year) (season) (date) (day) (month)?: year, season, day and month Where are we (state) (county) (town or city) (hospital) (floor)?: state, town or city, hospital/clinic and floor Score Score: 8 PHQ-9 Over the last 2 weeks, how often have you been bothered by any of the following problems? 1. Little interest or pleasure in doing things: more than half the days 2. Feeling down, depressed, or hopeless: not at all 3. Trouble falling or staying asleep, or sleeping too much: not at all 4. Feeling tired or having little energy: several days 5. Poor appetite or overeating: several days 6. Feeling bad about yourself - or that you are a failure or have let yourself or your family down: not at all 7. Trouble concentrating on things, such as reading the newspaper or watching television: not at all 8. Moving or speaking so slowly that other people could have noticed. Or the opposite - being so fidgety or restless that you have been moving around a lot more than usual: several days 9. Thoughts that you would be better off or of hurting yourself in some way: not at all Total score: 5 16524 - PHQ-9 Billing: Yes Source: Developed by Drs. Wilver Ugalde, Andreea Poe, David Gregory and colleagues, with an educational foreign from [employer]. Review of Systems Const Denies headache(s) Eyes Denies loss of vision ENT Denies vertigo, Denies dizziness, Denies headache(s) and Denies sore throat Card Denies chest pain, Denies leg edema, Denies lightheadedness and Reports dyspnea (on and off requiring oxygen 2 liters via n/c) Resp Denies cough, Denies hemoptysis, Reports dyspnea (on and off requiring oxygen 2 liters via n/c) and Denies wheezing GI Denies abdominal pain, Denies melena, Denies constipation, Denies diarrhea and Denies vomiting Denies dysuria, Denies urinary frequency, Reports urinary incontinence (functional, needs reminded at time to go to the bathroom) and Denies urinary urgency Musc Denies arthralgias, Denies joint swelling, Denies numbness and Denies tingling Neuro Denies Abnormal speech present, Denies behavioral changes, Denies vertigo, Denies dizziness, Denies headache(s), Denies loss of vision, Denies memory loss, Denies numbness and Denies tingling Psych Reports anxiety, Denies behavioral changes, Denies depression, Denies memory loss and Denies panic attacks Jasbir/Lymph Denies easy bleeding and Denies easy bruising Aller/Immun Denies wheezing Physical Exam Vital Signs: Last Vital Signs Temp 97.2 F 09/29/24 11:25 Pulse 96 09/29/24 11:25 BP 116/58 L 09/29/24 11:25 Pulse Ox 96 09/29/24 11:25 Oxygen Delivery Method Room Air 09/29/24 11:25 BMI result Body Mass Index 33.7 Const Other: IPPE/AWV: Balance Romberg Yes . Tandem walk unable to complete this Walk and Turn Yes . Rise from sit to stand Yes -he needs to push off with hands. Vision Corrective lens No Vision screen pass Hearing Whisper test pass . Urinary incont. yes at times. Functional, he needs to be reminded at times EKG Not clinically necessary. General: no acute distress, alert and awake Nutritional Appearance: well nourished Orientation/consciousness: oriented to person, oriented to place and oriented to time HEENT Head: Yes normocephalic Ears: TM's normal bilaterally General nose exam: Normal nasal mucous membranes and turbinates present Eyes Conjunctivae: conjunctivae normal Sclerae: sclerae normal Pupils: Equal, round and reactive pupils present Neck Neck: Yes no lymphadenopathy and Yes no JVD Thyroid: Thyroid normal Carotids: no bruits Resp Effort & Inspection: normal respiratory effort and not tachypneic Auscultation: clear to auscultation bilaterally, no crackles, no rales, no rhonchi, no wheezes and diminished lung sounds bilateral in the lower lung feldman Cardio Rate: regular rate Rhythm: regular rhythm Heart sounds: S1 normal heart sound present, S2 normal heart sound present, no murmurs and normal S1 and S2 GI Inspection: Yes obesity Palpation (GI): Soft to palpation and Tenderness to palpation present (GI) in the RUQ Auscultation: normal bowel sounds General: Yes no CVA tenderness Back/Spine/Pelvis Back: no CVA tenderness Skin General skin exam: no rashes or lesions noted and dry skin Neuro General: oriented to person, oriented to place and oriented to time Cranial nerves: Yes CN's II-XII intact bilaterally and Yes Equal, round and reactive pupils present Speech: No Abnormal speech present Gait exam (Neuro): Normal gait present Motor exam (neuro): no tremor noted Extrem Right upper extremity: full ROM Left upper extremity: full ROM Right lower extremity: full ROM; no edema Left lower extremity: full ROM; no edema Psych Mental Status: mental status grossly normal Speech and movement: Normal speech and movement present Affect: normal affect Attitude: cooperative Thought process: Normal thought process present Immunizations Boostrix Tdap 2.5 Lf unit-8 mcg-5 Lf/0.5 mL intramuscular syringe Performing Provider: MARYAM Rodriguez [place] [facility] [place] [facility] Administered by: Tessa Roth CMA on 09/29/24 12:05 Dose Route Admin Location Dispensed Lot Number Expiration Date NDC [employer] 0.5 mL IM Left Deltoid 0.5 mL [id number] 05/27/26 [id number] [employer] Total Dispensed Waste 0.5 mL 0 % VIS Given Date VIS Provided VIS Publication Date 09/29/24 Single Vaccine 20 Eligibility Eligibility Date Funding Source Not [facility] Eligible 09/29/24 Private Assessment & Plan Assessment & Plan (1) Medicare annual wellness visit, subsequent: Code(s): Z00.00 - Encounter for general adult medical examination without abnormal findings (2) Hypertension: Code(s): I10 - Essential (primary) hypertension Qualifiers: Hypertension type: unspecified Qualified Code(s): I10 - Essential (primary) hypertension (3) Diabetes mellitus: Code(s): E11.9 - Type 2 diabetes mellitus without complications Qualifiers: Diabetes mellitus type: type 2 Diabetes mellitus ad terminal makeup operator insulin use: with ad terminal makeup operator use Diabetes mellitus complication status: with hyperglycemia Qualified Code(s): E11.65 - Type 2 diabetes mellitus with hyperglycemia; Z79.4 - senior care (current) use of insulin (4) Obesity: Code(s): E66.9 - Obesity, unspecified Qualifiers: Obesity type: unspecified obesity type Obesity classification: adult class 1 (BMI 30 - 34.9) Serious obesity comorbidity presence: with serious comorbidity Body mass index: BMI 33.0-33.9 Qualified Code(s): E66.811 - Obesity, class 1; Z68.33 - Body mass index [BMI] 33.0-33.9, adult (5) Nephropathy: Code(s): N28.9 - Disorder of kidney and ureter, unspecified (6) Cognitive developmental delay: Code(s): F81.9 - Developmental disorder of scholastic skills, unspecified (7) COPD (chronic obstructive pulmonary disease): Code(s): J44.9 - Chronic obstructive pulmonary disease, unspecified Qualifiers: COPD type: unspecified COPD Qualified Code(s): J44.9 - Chronic obstructive pulmonary disease, unspecified (8) On supplemental oxygen therapy: Code(s): Z99.81 - Dependence on supplemental oxygen (9) Multiple pulmonary nodules: Code(s): R91.8 - Other nonspecific abnormal finding of lung field (10) Nocturnal hypoxemia: Code(s): G47.34 - Idiopathic sleep related nonobstructive alveolar hypoventilation Orders: Orders TDaP Immunization Today Z23 - Encounter for immunization Complete Blood Count Auto Diff Today E11.69 - Type 2 diabetes mellitus with other specified complication, E11.9 - Type 2 diabetes mellitus without complications, E66.9 - Obesity, unspecified, F81.9 - Developmental disorder of scholastic skills, unspecified, I10 - Essential (primary) hypertension, J44.1 - Chronic obstructive pulmonary disease with (acute) exacerbation, J44.9 - Chronic obstructive pulmonary disease, unspecified, N28.9 - Disorder of kidney and ureter, unspecified, Z87.09 - Personal history of other diseases of the respiratory system, Z99.81 - Dependence on supplemental oxygen Comprehensive [place]. Panel Fast Today E11.69 - Type 2 diabetes mellitus with other specified complication, E11.9 - Type 2 diabetes mellitus without complications, E66.9 - Obesity, unspecified, F81.9 - Developmental disorder of scholastic skills, unspecified, I10 - Essential (primary) hypertension, J44.1 - Chronic obstructive pulmonary disease with (acute) exacerbation, J44.9 - Chronic obstructive pulmonary disease, unspecified, N28.9 - Disorder of kidney and ureter, unspecified, Z87.09 - Personal history of other diseases of the respiratory system, Z99.81 - Dependence on supplemental oxygen Lipid Panel Today E11.69 - Type 2 diabetes mellitus with other specified complication, E11.9 - Type 2 diabetes mellitus without complications, E66.9 - Obesity, unspecified, F81.9 - Developmental disorder of scholastic skills, unspecified, I10 - Essential (primary) hypertension, J44.1 - Chronic obstructive pulmonary disease with (acute) exacerbation, J44.9 - Chronic obstructive pulmonary disease, unspecified, N28.9 - Disorder of kidney and ureter, unspecified, Z87.09 - Personal history of other diseases of the respiratory system, Z99.81 - Dependence on supplemental oxygen TSH reflex Free T4 Today E11.69 - Type 2 diabetes mellitus with other specified complication, E11.9 - Type 2 diabetes mellitus without complications, E66.9 - Obesity, unspecified, F81.9 - Developmental disorder of scholastic skills, unspecified, I10 - Essential (primary) hypertension, J44.1 - Chronic obstructive pulmonary disease with (acute) exacerbation, J44.9 - Chronic obstructive pulmonary disease, unspecified, N28.9 - Disorder of kidney and ureter, unspecified, Z87.09 - Personal history of other diseases of the respiratory system, Z99.81 - Dependence on supplemental oxygen Vitamin D 25-OH Total Today E11.69 - Type 2 diabetes mellitus with other specified complication, E11.9 - Type 2 diabetes mellitus without complications, E66.9 - Obesity, unspecified, F81.9 - Developmental disorder of scholastic skills, unspecified, I10 - Essential (primary) hypertension, J44.1 - Chronic obstructive pulmonary disease with (acute) exacerbation, J44.9 - Chronic obstructive pulmonary disease, unspecified, N28.9 - Disorder of kidney and ureter, unspecified, Z87.09 - Personal history of other diseases of the respiratory system, Z99.81 - Dependence on supplemental oxygen UA CC w/rflx Micro + Cult Today E11.69 - Type 2 diabetes mellitus with other specified complication, E11.9 - Type 2 diabetes mellitus without complications, E66.9 - Obesity, unspecified, F81.9 - Developmental disorder of scholastic skills, unspecified, I10 - Essential (primary) hypertension, J44.1 - Chronic obstructive pulmonary disease with (acute) exacerbation, J44.9 - Chronic obstructive pulmonary disease, unspecified, N28.9 - Disorder of kidney and ureter, unspecified, Z87.09 - Personal history of other diseases of the respiratory system, Z99.81 - Dependence on supplemental oxygen Quality Reporting (2019) Depression/Bipolar (159/160/161/177) PHQ-9: Total score: 5 Coding Diagnoses Medicare annual wellness visit, subsequent Z00.00 Hypertension, unspecified type I10 Hypertension type: unspecified Type 2 diabetes mellitus with hyperglycemia, with long-term current use of insulin E11.65; Z79.4 Diabetes mellitus type: type 2 Diabetes mellitus ad terminal makeup operator insulin use: with ad terminal makeup operator use Diabetes mellitus complication status: with hyperglycemia Class 1 obesity with serious comorbidity and body mass index (BMI) of 33.0 to 33.9 in adult, unspecified obesity type E66.811; Z68.33 Obesity type: unspecified obesity type Obesity classification: adult class 1 (BMI 30 - 34.9) Serious obesity comorbidity presence: with serious comorbidity Body mass index: BMI 33.0-33.9 Nephropathy N28.9 Cognitive developmental delay F81.9 Chronic obstructive pulmonary disease, unspecified COPD type J44.9 COPD type: unspecified COPD On supplemental oxygen therapy Z99.81 Multiple pulmonary nodules R91.8 Nocturnal hypoxemia G47.34 CPT Codes Advance Care Planning - Time spent: 1-15 minutes, on File ([id number]) Additional Codes PHQ-9 - 69978 - PHQ-9 Billing: Yes ([id number]) Time Spent (min) 43 Advance Care Planning Forms completed: Health Care Proxy and MOLST (given to brother to fill out when they can) Time spent: 1-15 minutes, on File Actual minutes spent: 6
[2024-09-29 11:25] VITALS: BP 116/58; PULSE 96; TEMP 36.2; O2SAT 96; BMI 33.7
--- OUTSIDE RECORDS SUMMARY | 2024-09-29 12:12 | XMS_ITS | Encounter Summary ---
Author Organization [facility] Address [address] [place] [address] [place] [id number] Phone Care Team Providers Care Back Tender Cloth Printing Name Role Phone Jose A Alves MD Primary Care Provider [phone] Encounter Details Date Type Department Care Team (Late st Contact Info) Description 03/06/2023 Procedure Pass [facility] [address] [place] [address] Social History Tobacco Use Types Packs/Day Years Used Date Smoking Tobacco: Former Cigarettes Q uit: 2010 Smokeless Tobacco: Never Alcohol Use Standard Drinks/Week Comments Never 0 (1 standard drink = 0.6 oz pur e alcohol) Home Health Assessment: Transportation Answer Date Recorded Lack of Transportation (Medical) No 07/08/2022 Lack of Transportation (Non-Medical) No 07/08/2022 Patient Unable or Declines to Respond No 07/08/2022 Education Answer Date Recorded Are you interested in more education? Not on lucia e 07/03/2022 Are you concerned about learning? Not on file 07/03/2022 No 07/03/2022 No 07/03/2022 Digital Access Answer Date Recorded No 08/02/2022 No 08/02/2022 No 08/02/2022 Reliable internet access at home? Not on file 08/02/2022 Device with a working camera? Not on file Intimate Partner Violence Answer Date R ecorded Are you denied basic needs s uch as food, clothing, or medical care? No 03/03/2023 In the past 12 months have y ou been in a relationship with a person who hurts, threatens, or tries to control you? No 03/03/2023 Are you denied basic needs s uch as food, clothing, or medical care? No 03/03/2023 In the past 12 months have y ou been in a relationship with a person who hurts, threatens, or tries to control you? No 03/03/2023 Sex and Gender Information Value Date Recorded Sex Assigned at Male 06/09/2022 3:33 PM EDT Legal Sex Male 9:45 PM EDT Gender Identity Male 06/09/2022 3:33 PM EDT Sexual Orientation Not on file documented as of this encounter Plan of Treatment Not on file documented as of this encounter Visit Diagnoses Not on filedocumented in this encounter Care Teams Back Tender Cloth Printing Relationship Specialty Start Date End Date Jose A Alves MD [address] [place] [address] [place] [address] PCP - General Internal Medicine 12/14/19 documented as of this encounter Additional Source Comments The information contained in this document represents components of the legal health record. It is not the complete legal health record.[facility]
== END 2024-09-29 12:35 | disposition home or self-care (01) ==
LOC: HO.HMCH 11:17
PROVIDERS: PCP Internal Medicine
DX: Z23 Encounter for immunization (principal)

== ENCOUNTER → 2024-09-29 11:17 | Outpatient (BNVA) | payer MEDICARE, MEDICAID, SELFPAY | PROVIDERS: PCP Internal Medicine | DX: Z00.00 Encounter for general adult medical examination without abnormal findings (principal); Z23 Encounter for immunization; I10 Essential (primary) hypertension; E11.65 Type 2 diabetes mellitus with hyperglycemia; Z79.4 Long term (current) use of insulin; E66.811 Obesity, class 1; Z68.33 Body mass index [BMI] 33.0-33.9, adult; N28.9 Disorder of kidney and ureter, unspecified; F81.9 Developmental disorder of scholastic skills, unspecified; J44.9 Chronic obstructive pulmonary disease, unspecified; R91.8 Other nonspecific abnormal finding of lung field; G47.34 Idiopathic sleep related nonobstructive alveolar hypoventilation; Z99.81 Dependence on supplemental oxygen | CPT/HCPCS: 90471; 90715; 96127 ==

== ENCOUNTER 2024-11-11 16:31 | Outpatient (REF) | payer MEDICARE, MEDICAID, SELFPAY ==
--- NOTE | ~2024-11-11 | CT_ITS ---
EXAMINATION: CT CHEST WITHOUT CONTRAST CLINICAL INFORMATION: R91.8 - Other nonspecific abnormal finding of lung field COMPARISON: None available. TECHNIQUE: Multidetector volumetric CT imaging of the chest was done. Axial MIP volume rendering provided. Sagittal and coronal reformatted images were obtained. This CT examination was performed using dose optimization techniques as appropriate, variously including the following: *Automated exposure control *Adjustment of mA and/or kV according to patient size (this includes techniques or standardized protocols for targeted exams where dose is matched to indication/reason for exam; i.e. extremities or head) *Use of iterative reconstruction technique DLP: 437 mGY*cm FINDINGS: Motion moderately obscured details in the lung bases. LUNGS: Moderate paraseptal and centrilobular emphysema is present and most pronounced in the lung apexes. Lungs are clear otherwise. MEDIASTINUM: The mediastinum is normal. CORONARY ARTERY CALCIFICATION: Present PLEURA: There is no pleural effusion. No pleural mass or thickening. AXILLA: No lymphadenopathy. UPPER ABDOMEN: Unremarkable. OSSEOUS STRUCTURES: Unremarkable. CT/CT chest wo IV con IMPRESSION: Moderate paraseptal and centrilobular emphysema. Fleischner guidelines were followed. Electronically signed by: Shun Watson MD 11/11/2024 05:05 PM EDT
--- OUTSIDE RECORDS SUMMARY | 2024-11-11 16:34 | XMS_ITS | Encounter Summary ---
Author Organization [facility] Address [address] [place] [address] [place] [id number] Phone Care Team Providers Care Mandarin Teacher Name Role Phone Jose A Alves MD Primary Care Provider [phone] Encounter Details Date Type Department Care Team (Late st Contact Info) Description 03/06/2023 Procedure [facility] [address] [place] [address] Social History Tobacco Use Types Packs/Day Years [...] on filedocumented in this encounter Care Teams Mandarin Teacher Relationship Specialty Start Date End Date Jose A Alves MD [address] [place] [address] [place] [address] PCP - General Internal Medicine 12/14/19 documented as of this encounter Additional Source Comments The information contained in this document represents components of the legal health record. It is not the complete legal health record.[facility]
--- OUTSIDE RECORDS SUMMARY | 2024-11-11 16:34 | XMS_ITS | Clinical Summary ---
Author Organization [facility] Address [address] [place], [place] [id number] Phone Care Team Providers Care Assembler Erector Name Role Phone Jose A Alves MD Primary Care Provider [phone] Allergies No known active allergies Medications BASAGLAR KWIKPEN U-100 INSULIN 100 unit/mL (3 mL) InPn injection pen Inject 75 Units under the skin nightly at bedtime. 3 Active ONETOUCH ULTRASOFT lancets USE DIRECTED ONCE DAILY 1 Active metFORMIN (GLUCOPHAGE) 1000 MG tablet Take 1,000 mg by mouth 2 (two) times a day. 1 Active pioglitazone (ACTOS) 45 MG tablet Take 45 mg by mouth daily. 1 Active albuterol 90 mcg/actuation inhaler Inhale 2 puffs into the lungs every 6 (six) hours as needed for wheezing. 1 Inhaler 1 Active NOVOLIN R FLEXPEN 100 unit/mL (3 mL) subcutaneous injection Inject 2 Units under the skin as needed for other (free text field) (per sliding scale). 3 Active lisinopril (PRINIVIL,ZESTRI L) 10 MG tablet Take 10 mg by mouth daily. 3 Active clonazePAM (KLONOPIN) 0.5 MG tablet Take 0.5 mg by mouth 2 (two) times a day. 3 Active OXYGEN-AIR DELIVERY SYSTEMS MISC 2 L by Intranasal route continuous. 3 Active atorvastatin (LIPITOR) 10 MG tablet Take 10 mg by mouth daily. Active TRULICITY 1.5 mg/0.5 mL subcutaneous injection Inject 1.5 mg under the skin every 7 days. ON fridays 3 Active albuterol 2.5 mg /3 mL (0.083 %) nebulizer solution Take 2.5 mg by nebulization every 4 (four) hours as needed for wheezing or shortness of breath/dyspnea. 3 Active tamsulosin (FLOMAX) 0.4 mg Cap Take 0.4 mg by mouth nightly at bedtime. 4 Active Active Problems Problem Noted Date Diagnosed Date Impaired cognitive ability 03/06/2023 Hyperkalemia 03/05/2023 Assessment & Plan (03/08/2023 2:08 PM EST): Stable. Will monitor with a recheck tomorrow morning. Assessment & Plan (03/05/2023 12:43 PM EST): Potassium elevated to 5.7. Patient too somnolent to take Lokelma safely. - Insulin 10 units ordered. -Patient transferred to ICU for further care. COPD with acute exacerbation 06/11/2022 Assessment & Plan (03/08/2023 2:14 PM EST): Confirmed COPD diagnosis with sister. Patient with long history of smoking, 30 pack years. Quit 15 years ago. Now treating with steroids, azithromycin, scheduled respiratory treatments. Will follow clinically. Will decrease oxygen and titrate to 92% given the patient's chronic hypercapnia. Assessment & Plan (03/05/2023 12:45 PM EST): Admitted with COPD exacerbation noted to have markedly poor air mvmt and sig O2 requirement. -Overnight had decompensation. Transition to IV Solu-Medrol this morning. -Now with hypoxic respiratory failure secondary to COPD on BiPAP. -ICU for further care likely will continue Duonebs QID, Albuterol Q4 PRN Acute respiratory failure with hypercapnia 10/17 Assessment & Plan (03/08/2023 2:07 PM EST): Acute hypercarbic respiratory failure likely related to COPD exacerbation, possibly complicated by viral pneumonia. Flu and COVID are negative. Transition to PO steroids. Cont QID respiratory treatments. Will assess whether or not patient needs NIV chronically. Will discontinue for now and then check ABG in a.m. If he has a pCO2 greater than 52 then he will need a noninvasive ventilator at home to help with gas exchange, lower readmissions and to help to improve qulaity of life. Assessment & Plan (03/05/2023 12:43 PM EST): Admitted with COPD exacerbation 03/04 requiring 4 L of O2 with SpO2 93% overnight. -Found to be somnolent this morning and MAR indicates patient received his home dose of clonazepam 0.5 mg at 8:34 AM. Also received a dose last evening at 2141. -ABG shows pH of 7.23/pCO2 88.3/PaO2 70.1 -ICU and respiratory consulted for BiPAP. -Healthcare proxy Mariam Lambert contacted at [phone] and confirms that patient would want BiPAP and full code. -Flumazenil ordered 0.1 mg IV x 1 however not given before transfer to ICU. -Patient transferred to ICU for further care. Assessment & Plan (10/19/2020 5:10 PM EDT): Due to COPD exacerbation Stop azithromycin, had three doses. Convert to po prednisone. DW sister (he has home O2, uses rarely and has had for 10 years. She will find his nebulizer, if not they will get one.). Home in the morning if stable. Probably should have some baseline COPD medications, not sure that he would do well with inhalers. Can ask respiratory therapy to try Advair with him. Hyponatremia 10/17/2020 Assessment & Plan (03/08/2023 2:12 PM EST): Mild hyponatremia. Free water restriction. Assessment & Plan (03/05/2023 12:49 PM EST): Na 126 , with hx of hyponatremia in past as well and in setting of respiratory compromise as well as hyperglycemia No s/s to suggest dehydration by hx or exam . Repeat sodium 128. Further workup in ICU, if no correction will need serum and urine sodium and osmolality. Assessment & Plan (10/18/2020 5:00 PM EDT): Resolved. DM2 (diabetes mellitus, type 2) 10/17/2020 Assessment & Plan (03/08/2023 2:07 PM EST): Continue with insulin. Will increase to Lantus 60 units. Patient is typically on 75 untis at home. Continue [id number]. Monitor blood sugar closely while on steroids. Assessment & Plan (03/05/2023 12:46 PM EST): DM on oral medications at home. Held on admission. Home Lantus 75 units continued. -Blood sugars elevated with introduction of steroids. -Increase Lantus 78 units nightly -Started on prandial insulin however patient now on BiPAP will need further titration of insulin per ICU. Assessment & Plan (06/11/2022 1:59 PM EDT): - Hemoglobin A1c is also elevated at 11.7 suggesting baseline uncontrolled diabetes -- here above goal, likely steroids contributing also - increased glargine and prandial insulin Assessment & Plan (10/17/2020 5:21 PM EDT): Continue insulin, hold Metformin, patient's glucose will likely be higher in the setting of steroids and acute illness, will start mealtime lispro Resolved Problems Problem Noted Date Diagnosed Date Resolved Date COPD exacerbation 10/17/2020 03/04/2023 Assessment & Plan (06/11/2022 2:01 PM EDT): History of COPD. Chest x-ray shows bibasilar opacities consistent with atelectasis versus mild pulmonary edema. --transition to prednisone - cont scheduled nebulizers, add guaifenesin - is completing azithromycin -- proBNP- was not elevated - hold off on lasix - acute hypoxic respiratory failure, wean oxygen with goal sat > 90% Assessment & Plan (10/18/2020 4:59 PM EDT): As above Immunizations Immunization Administration Dates Next Due INFLUENZA, SPLIT VIRUS, TRIV ALENT W/ PRESERVATIVE IM 02/15/2015 Influenza Quadrivalent Prese rvative Free IM 01/18/2021,12/14/2019,02/28/2019,2017 Influenza Quadrivalent w/ Preservative IM 12/15/2017 Social History Tobacco Use Types Packs/Day Years Used Date Smoking Tobacco: Former Cigarettes Q uit: 2010 Smokeless Tobacco: Never Alcohol Use Standard Drinks/Week Comments Never 0 (1 standard drink = 0.6 oz pur e alcohol) Home Health Assessment: Transportation Answer Date Recorded Lack of Transportation (Medical) No 04/15/2023 Lack of Transportation (Non-Medical) No 04/15/2023 Patient Unable or Declines to Respond No 04/15/2023 Education Answer Date Recorded Are you interested [...] PM EDT Sexual Orientation Not on file Last Filed Vital Signs Vital Sign Reading Time Taken Comments Blood Pressure 118/78 04/15/2023 10:26 AM EST Pulse 98 04/15/2023 10:26 AM EST Temperature 36.8 C (98.3 F) 04/15/2023 10:26 AM EST Respiratory Rate 18 04/15/2023 10:26 AM EST Oxygen Saturation 92% 04/15/2023 10:26 AM EST Inhaled Oxygen Concentration 35% 03/08/2023 4 :00 AM EST Weight 99.9 kg (220 lb 3.8 oz) 03/13/2023 11:35 AM EST Height 172.7 cm (5' 8 ) 03/13/2023 11:35 AM EST Body Mass Index 33.49 03/13/2023 11:35 AM EST Plan of Treatment Health Maintenance Due Date Last Done Comments Adult Td,Tdap Booster 1961 DEPRESSION SCREENING 1973 SMOKING Hx and SMOKELESS TOBACCO SCREENING 1974 HEPATITIS C SCREENING 08/20/1979 HIV ONE-TIME SCREENING (18-65 YEARS) 08/20/1979 PNEUMOCOCCAL VACCINES (50+ years) (1 of 2 - PCV) 1980 COLOGUARD 2006 COLONOSCOPY 2006 COLORECTAL CANCER SCREENING 2006 FIT TEST 2006 FOBT 2006 SIGMOIDOSCOPY 2006 VIRTUAL COLONOSCOPY 2006 ZOSTER VACCINES (1 of 2) 08/20/2011 DIABETIC EYE EXAM 10/17/2020 RSV VACCINE (1 - Risk 60-74 years 1-dose series) 2021 HEMOGLOBIN A1C 09/09/2022 06/10/2022 BLOOD PRESSURE 10/14/2023 04/15/2023 CREATININE LEVEL 03/09/2024 03/09/2023, , 03/08/2023, Additional history exists POTASSIUM LEVEL 03/09/2024 03/09/2023, 02/08, 03/08/2023, Additional history exists INFLUENZA VACCINE (#1) 2024 , 12/14/2019, 02/28/2019, Additional history exists COVID-19 VACCINE ( season) 2024 02/26/2021, 05/17/2020, 04/19/2020 HEPATITIS A VACCINES Aged Out No long er eligible based on patient's age to complete this topic HIB VACCINES Aged Out No longer eligi ble based on patient's age to complete this topic MENINGOCOCCAL VACCINES (ACWY) Aged Out No longer eligible based on patient's age to complete this topic MENINGOCOCCAL VACCINES (B) Aged Out N o longer eligible based on patient's age to complete this topic Medical Devices Not on file Procedures Procedure Name Priority Date/Time Associated Diagnosis Comments BASIC METABOLIC PANEL Routine 03/09/2023 5:54 AM EST HEMOGLOBIN A1C Routine 06/10/2022 6:01 AM EDT from Last 3 Months or Most Recently Relevant to Health Maintenance Results * (ABNORMAL) Basic metabolic panel (03/09/2023 5:54 AM EST) SODIUM 138 133 - 146 mmol/L [facility] CHLORIDE 93(L) 96 - 108 mmol/L [facility] POTASSIUM 3.7 3.3 - 5.1 mmol/L [facility] CO2 36(H) 21 - 35 mmol/L [facility] BUN 21(H) 6 - 19 mg/dL [facility] CREATININE 0.60 0.5 - 1.5 mg/dL [facility] GLUCOSE 80 70 - 99 mg/dL [facility] CALCIUM 9.3 8.4 - 10.3 mg/dL [facility] EGFR 110 >59 mL/min/1.7 3m2 [facility] Comment:Estimated glomerular filtration rate calculated using the CKD-EPI refit equation. ANION GAP 13 10 - 20 mmol/L [facility] Blood 03/09/2023 5:54 AM EST 03/09/2023 6:10 AM EST us Rachel Cardona MD LAB BLOOD ORDERABLES Final Re sult [address] [address] * (ABNORMAL) Hemoglobin A1c (06/10/2022 6:01 AM EDT) HEMOGLOBIN A1C 11.7(H) 4.3 - 5.8 % [facility] Blood 06/10/2022 6:01 AM EDT 06/10/2022 6:21 AM EDT us Debo Ramos DO LAB BLOOD ORDERABLES Final Re sult [address] [address] from Last 3 Months or Most Recently Relevant to Health Maintenance Insurance MEDICARE PART A & B [employer] MEDICARE PART [facility] & [facility] MEDIC[facility] PART A & [place] [address] [place] [address] MEDICARE PART A [place] Member Subscriber Plan / Payer ( fective 2016-Present) Name:Curry Philippe Relation to Subscriber:Self Name:Curry Philippe Payer ID:[id number] Group ID:Not on file Type:Medicaid Address: [facility] [address] [place] [address] MEDICARE PART A & [place] [address] [address] MEDICARE PART A & B [facility] [address] [place] [phone] MEDICARE PART A & B [facility] [address] [place] [phone] Advance Directives For more information, please contact: [phone] (9AM - 5PM [facility], Thursday-Thursday) Documents on File Type Date Recorded Patient Rate Setter Expl anation Healthcare Proxy 06/13/2022 3:05 PM * Full Code (Latest Code Status on File) Date Activated Date Inactivated Comments 03/04/2023 3:50 AM Question Answer Comments Code Status Confirmed With: Patient * Full Code Date Activated Date Inactivated Comments 06/09/2022 8:53 PM 03/04/2023 3:50 AM Question Answer Comments Code Status Confirmed With: Patient * Full Code Date Activated Date Inactivated Comments 10/17/2020 5:29 PM 06/09/2022 8:53 PM Question Answer Comments Code Status Confirmed With: Family Care Teams Assembler Erector Relationship Specialty Start Date End Date Jose A Alves MD [address] [place] [address] [place] [address] PCP - General Internal Medicine 10/7/20 Additional Source Comments The information contained in this document represents components of the legal health record. It is not the complete legal health record.[facility]
== END 2024-11-11 16:32 | disposition home or self-care (01) ==
LOC: HO.CT 16:31
PROVIDERS: Visit Provider Nurse Practitioner Family
DX: R91.8 Other nonspecific abnormal finding of lung field (principal)
CPT/HCPCS: 71250

== ENCOUNTER → 2024-11-11 16:34 | Outpatient (BNV) | payer MEDICARE, MEDICAID, SELFPAY | PROVIDERS: Visit Provider Radiology Diagnostic Radiology | DX: J43.2 Centrilobular emphysema (principal) | CPT/HCPCS: 71250 ==

== ENCOUNTER 2024-12-01 07:50 | Outpatient (REF) | payer MEDICARE, MEDICAID, SELFPAY ==
--- NOTE | ~2024-12-01 | US_ITS ---
CLINICAL HISTORY: R10.11 - Right upper quadrant pain --- Additional Notes or Special Instructions: Flinches with palpation of right upper quadrant. The patient is mentally US abdomen limited Comparison: None provided Findings: Limited exam due to body habitus and patient's motion. Pancreas, abdominal aorta and IVC are not convincingly seen. Liver is not entirely visualized, mildly enlarged, 17.8 cm in length, markedly increased echogenicity of the liver parenchyma, the posterior and upper aspect of the liver is very difficult to see, the visualized portion demonstrates no focal lesion or intrahepatic bile duct dilatation. Gallbladder is normal, no wall thickening, stone or sludge, negative sonographic Emery's sign. Common duct is seen at the samuel hepatis, 3 mm in diameter, distal CBD is not seen. Patent main portal vein with normal directional flow. Right kidney superior and inferior poles are not visualized, otherwise grossly normal, 12.2 cm in length. No free fluid in the right upper quadrant of the abdomen. Impression: 1. Technically limited exam, suboptimal and limited evaluation of solid organs. 2. Mild hepatomegaly, markedly echogenic liver parenchyma is non-specific, commonly seen in steatosis or chronic hepatitis, can be accentuated by body habitus. This document has been electronically signed by: Raquel Sánchez MD on 12/01/2024 17:30:09
--- OUTSIDE RECORDS SUMMARY | 2024-12-01 07:52 | XMS_ITS | Encounter Summary ---
Author Organization [facility] Address [address] [place] [address] [place] [address] Phone Care Team Providers Care Pulmonologist/Intensivist Name Role Phone Jose A Alves MD Primary Care Provider [phone] Encounter Details Date Type Department Care Team (Late st Contact Info) Description 03/06/2023 Procedure Pass [facility] [address] [place] [address] Social History Tobacco Use Types Packs/Day Years [...] on filedocumented in this encounter Care Teams Pulmonologist/Intensivist Relationship Specialty Start Date End Date Jose A Alves MD [address] [place] [address] [place] [address] PCP - General Internal Medicine 12/14/19 documented as of this encounter Additional Source Comments The information contained in this document represents components of the legal health record. It is not the complete legal health record.[facility]
--- OUTSIDE RECORDS SUMMARY | 2024-12-01 07:52 | XMS_ITS | Clinical Summary ---
Author Organization [facility] Address [address] [place], [place] [address] Phone Care Team Providers Care Coper Hand Name Role Phone Jose A Alves MD Primary Care Provider [phone] Allergies No known active allergies Medications BASAGLAR [...] BiPAP. -Healthcare proxy Mariam Lambert contacted at [phone] and confirms that patient would want BiPAP [...] typically on 75 untis at home. Continue [id number]'s. Monitor blood sugar closely while on steroids. [...] EST) SODIUM 138 133 - 146 mmol/L [facility] CHLORIDE 93(L) 96 - 108 mmol/L [facility] POTASSIUM 3.7 3.3 - 5.1 mmol/L [facility] CO2 36(H) 21 - 35 mmol/L [facility] BUN 21(H) 6 - 19 mg/dL [facility] CREATININE 0.60 0.5 - 1.5 mg/dL [facility] GLUCOSE 80 70 - 99 mg/dL [facility] CALCIUM 9.3 8.4 - 10.3 mg/dL [facility] EGFR 110 >59 mL/min/1.7 3m2 [facility] Comment:Estimated glomerular filtration rate calculated using the CKD-EPI refit equation. ANION GAP 13 10 - 20 mmol/L [facility] Blood 03/09/2023 5:54 AM EST 03/09/2023 6:10 AM EST us Rachel Cardona MD LAB BLOOD ORDERABLES Final Re sult [address] [address] * (ABNORMAL) Hemoglobin A1c (06/10/2022 6:01 AM EDT) HEMOGLOBIN A1C 11.7(H) 4.3 - 5.8 % [facility] Blood 06/10/2022 6:01 AM EDT 06/10/2022 6:21 AM EDT us Debo Ramos DO LAB BLOOD ORDERABLES Final Re sult [address] [address] from Last 3 Months or Most Recently Relevant to Health Maintenance Insurance MEDICARE PART A & B [place] MEDICARE PART A & B [facility] PART A & [facility] MED[facility] PART A & [facility] MEDICARE PART A & [place] [address] [place] [address] MEDICARE PART A & B [place] MEDICARE PART A & [place] [address] [place] [address] MEDICARE PART A & B [facility] [place] [id number] MEDICARE PART A & B [facility] [place] [phone] Advance Directives For more information, please contact: [phone] (9AM - 5PM [facility], Thursday-Thursday) Documents on File Type Date Recorded Patient Management Sme Expl anation Healthcare Proxy 06/13/2022 3:05 PM [...] Code Status Confirmed With: Family Care Teams Coper Hand Relationship Specialty Start Date End Date Jose A Alves MD [address] [place] [address] [place] [address] PCP - General Internal Medicine 10/7/20 Additional Source Comments The information contained in this document represents components of the legal health record. It is not the complete legal health record.[facility]
== END 2024-12-01 07:51 | disposition home or self-care (01) ==
LOC: HO.US 07:50
DX: R10.11 Right upper quadrant pain (principal)
CPT/HCPCS: 76705

== ENCOUNTER → 2024-12-01 07:51 | Outpatient (BNV) | payer MEDICARE, MEDICAID, SELFPAY | PROVIDERS: Visit Provider Radiology Diagnostic Radiology | DX: R10.11 Right upper quadrant pain (principal) | CPT/HCPCS: 76705 ==

== ENCOUNTER 2024-12-05 15:02 | Outpatient (AMB) | payer MEDICARE, MEDICAID, SELFPAY ==
[2024-12-05 15:11] VITALS: BP 126/74; PULSE 94; O2SAT 89; BMI 33.7
--- NOTE | 2024-12-05 15:11 | A.OFFVIS_ITS ---
Vital Signs 3 12/05/24 15:11 Height 5 ft 7 in Weight 214 lb 15.211 oz BMI 33.7 BP 126/74 Blood Pressure Location Rt brachial Position Sitting Pulse 94 Pulse Source Pulse Oximeter Pulse Oximetry (%) 89 L Oxygen Delivery Method Room Air Intake Visit Reasons: COPD Allergies No Known Allergies Allergy (Unknown, Verified 12/05/24 15:14) NOT APPLICABLE HPI HPI COPD: Details: Curry is a pleasant 64 year old male, former 40 pack year smoker, quit 5+ years ago, with underlying COPD on 2L supplemental oxygen and cognitive developmental delay. Today he is accompanied by his sister. He has cognitive delays, lives with sister Mariam, who is present today. Previously recommendations made for NIV due to hospitalizations for acute respiratory failure with hypercapnia however he could not tolerate and continues to refuse. He has been using 2L supplemental oxygen with exertion and attempts to use nocturnal supplemental oxygen however he also has difficulties with compliance. Oxygen saturation has been maintained >92% per sister. At this time, sister reports new onset dry cough over the last few days without fevers, or chills. She denies any increased dyspnea, labored breathing or increased oxygen requirements. Difficult to obtain information from patient. He also has nebulized therapy however uses very infrequently. He denies any visits to urgent care or hospitalizations related to respiratory distress since the last visit. Today he presents to review chest CT results. [facility] Medical History Obesity Type 2 diabetes mellitus with obesity COPD (chronic obstructive pulmonary disease) Cognitive developmental delay Diabetes mellitus Surgical History No pertinent past surgical history Family History Mother No problems noted. Father No problems noted. Social History Housing: House Patient Tobacco Use Status: Former Tobacco user Tobacco use type: Cigarette e-Cigarette/Vaping Use: Never Used Second Hand Smoke Exposure: No service: No Current occupational status: disabled Cognitive needs: Yes Hearing needs: No Vision needs: No Review of Systems Const Details: Difficult to obtain history from patient, history obtained mostly from sister Denies chills, Denies excessive sweating, Denies fever(s), Denies headache(s) and Denies night sweats Eyes Denies dry eyes, Denies irritation and Denies itchy eyes ENT Reports Normal hearing present, Denies headache(s), Denies nasal congestion, Denies nasal discharge, Denies post nasal drip and Denies sore throat Card Denies chest pain, Denies chest pain at rest, Denies chest pain with activity, Denies claudication, Denies leg edema, Denies dyspnea, Denies dyspnea on exertion, Denies orthopnea and Denies paroxysmal nocturnal dyspnea Resp Denies chest congestion, Reports cough, Denies excessive phlegm production, Denies pain on inspiration, Denies pain with cough, Denies dyspnea, Denies dyspnea on exertion, Denies stridor and Denies wheezing Musc Denies myalgias Neuro Reports Normal hearing present and Denies headache(s) Endo Denies excessive sweating Jasbir/Lymph Denies lymphadenopathy Aller/Immun Denies itchy eyes, Denies seasonal rhinorrhea and Denies wheezing Physical Exam Vital Signs: Last Vital Signs Pulse 94 12/05/24 15:11 BP 126/74 12/05/24 15:11 Pulse Ox 89 L 12/05/24 15:11 Oxygen Delivery Method Room Air 12/05/24 15:11 BMI result Body Mass Index 33.7 Const Other: initially 89L on room air, patient was not wearing supplemental oxygen, increased to 94% on room air with rest. Encouraged 2L with exertion. General: cooperative, healthy appearing, comfortable, no acute distress, well developed and alert Nutritional Appearance: obese HEENT Head: Yes normal to inspection, Yes normocephalic and Yes atraumatic Ears: hearing grossly normal bilaterally and external ears normal Eyes General: appearance normal, both eyes and all related structures Eyelids: Yes eyelids normal Sclerae: sclerae normal EOM: EOMs intact bilaterally Neck Neck: Yes normal visual inspection and Yes no lymphadenopathy Lymphatic: no lymphadenopathy noted Chest Chest palpation & inspection: normal inspection of the chest Resp Effort & Inspection: normal respiratory effort, able to speak in complete sentences, no audible wheezes, no cough, no stridor, not tachypneic, no tripod positioning and no use of accessory muscles Auscultation: diminished lung sounds Cardio Jugular venous distension: no JVD Rate: regular rate Skin Other: warm, dry General skin exam: no rashes or lesions noted Neuro Cranial nerves: Yes Normal hearing present Cognition (Neuro): normal cognition Gait exam (Neuro): Normal gait present Extrem General: Yes normal to inspection, Yes capillary refill normal, Yes no clubbing, cyanosis or edema and Yes no pedal edema Psych Appearance: grossly normal and well kempt Speech and movement: Normal speech and movement present and Clear speech present Attitude: cooperative Insight: Limited insight present (Psych) Judgement: Limited judgement present (Psych) Results Reviewed Results Reviewed: Assessment & Plan Assessment & Plan (1) COPD (chronic obstructive pulmonary disease): Code(s): J44.9 - Chronic obstructive pulmonary disease, unspecified Category: Medical Qualifiers: COPD type: unspecified COPD Qualified Code(s): J44.9 - Chronic obstructive pulmonary disease, unspecified (2) History of acute respiratory failure: Code(s): Z87.09 - Personal history of other diseases of the respiratory system Category: Medical (3) Cognitive developmental delay: Code(s): F81.9 - Developmental disorder of scholastic skills, unspecified Category: Medical (4) Personal history of tobacco use: Code(s): Z87.891 - Personal history of nicotine dependence Category: Social Hx (5) On supplemental oxygen therapy: Code(s): Z99.81 - Dependence on supplemental oxygen Category: Medical (6) Pulmonary nodule: Code(s): R91.1 - Solitary pulmonary nodule Category: Medical Plan Reviewed chest CT which revealed new 3-4 mm nodule of RUL, not mentioned on report, compared to prior chest CT 08/2023. Will repeat in one year to assess stability. Patient with new onset dry cough over the last few days, encouraged use of nebulized therapy if no improvements patient's sister aware to call. All questions were answered and patient is in agreement if plan. Will follow up in 3-6 months or sooner if needed. Orders: Orders 2 CT chest wo IV con 11 Months R91.1 - Solitary pulmonary nodule Coding Level of Care Code Est Pt Level 4 (86167) Diagnoses Chronic obstructive pulmonary disease, unspecified COPD type J44.9 COPD type: unspecified COPD History of acute respiratory failure Z87.09 Cognitive developmental delay F81.9 Personal history of tobacco use Z87.891 On supplemental oxygen therapy Z99.81 Pulmonary nodule R91.1
--- OUTSIDE RECORDS SUMMARY | 2024-12-05 17:08 | XMS_ITS | Clinical Summary ---
Author Organization [facility] Address [address] [place], [place] [address] Phone Care Team Providers Care Numerical Control Lathe Operator Name Role Phone Jose A Alves MD Primary Care Provider [phone] Allergies No known active allergies Medications BASAGLAR [...] BiPAP. -Healthcare proxy Mariam Lambert contacted at [phone] and confirms that patient would want BiPAP [...] typically on 75 untis at home. Continue dqxoh-zj-mfik's. Monitor blood sugar closely while on steroids. [...] EST) SODIUM 138 133 - 146 mmol/L [facility] CHLORIDE 93(L) 96 - 108 mmol/L [facility] POTASSIUM 3.7 3.3 - 5.1 mmol/L [facility] CO2 36(H) 21 - 35 mmol/L [facility] BUN 21(H) 6 - 19 mg/dL [facility] CREATININE 0.60 0.5 - 1.5 mg/dL [facility] GLUCOSE 80 70 - 99 mg/dL [facility] CALCIUM 9.3 8.4 - 10.3 mg/dL [facility] EGFR 110 >59 mL/min/1.7 3m2 [facility] Comment:Estimated glomerular filtration rate calculated using the CKD-EPI refit equation. ANION GAP 13 10 - 20 mmol/L [facility] Blood 03/09/2023 5:54 AM EST 03/09/2023 6:10 AM EST us Rachel Cardona MD LAB BLOOD ORDERABLES Final Re sult [address] [address] * (ABNORMAL) Hemoglobin A1c (06/10/2022 6:01 AM EDT) HEMOGLOBIN A1C 11.7(H) 4.3 - 5.8 % [facility] Blood 06/10/2022 6:01 AM EDT 06/10/2022 6:21 AM EDT us Debo Ramos DO LAB BLOOD ORDERABLES Final Re sult [address] [address] from Last 3 Months or Most Recently Relevant to Health Maintenance Insurance MEDICARE PART A & B Member Subscriber Plan / Payer (Ef fective 1997-Present) Name:Curry Philippe Member ID:[id number] Relation to Subscriber:Self Name:Curry Philippe Subscriber ID:[id number] Payer ID:[id number] Group ID:Not on file Type:Medicare Address: [employer] [address] [place] [address] [employer] MEDICARE PART A & B Member Subscriber Plan / Payer (Ef fective 1997-Present) Name:Curry Philippe Member ID:[id number] Relation to Subscriber:Self Name:Curry Philippe Subscriber ID:[id number] Payer ID:[id number] Group ID:Not on file Type:Medicare Address: [employer] [address] [place] [address] [facility] Member Subscriber Plan / Payer (Ef fective 1997-Present) Name:Curry Philippe Member ID:[id number] Relation to Subscriber:Self Name:Jose MartinCurry Subscriber ID:[id number] Payer ID:[id number] Group ID:Not on file Type:Medicare Address: [employer] [address] [place], [place] [id number] [facility] B Member Subscriber Plan / Payer (Ef fective 1997-Present) Name:Jose Martin Curry Member ID:[id number] Relation to Subscriber:Self Name:Jose Martin Curry Subscriber ID:[id number] Payer ID:[id number] Group ID:Not on file Type:Medicare Address: [employer] [address] [place] [address] [facility] B Member Subscriber Plan / Payer ( fective 1997-Present) Name:Curry Philippe Member ID:[id number] Relation to Subscriber:Self Name:Curry Philippe Subscriber ID:[id number] Payer ID:[id number] Group ID:Not on file Type:Medicare Address: [employer] [address] [place], [place] [id number] [place] [address] MEDICARE PART A & B Member Subscriber Plan / Payer ( fective 1997-Present) Name:Curry Philippe Member ID:[id number] Relation to Subscriber:Self Name:Curry Philippe Subscriber ID:[id number] Payer ID:[id number] Group ID:Not on file Type:Medicare Address: [employer] [address] [place] [address] [facility] MEDICARE PART A & [place] [address] MEDICARE PART A & B Member Subscriber Plan / Payer ( fective 1997-Present) Name:Curry Philippe Member ID:[id number] Relation to Subscriber:Self Name:Curry Philippe Subscriber ID:[id number] Payer ID:[id number] Group ID:Not on file Type:Medicare Address: [employer] [address] [place] [address] [facility] [place] [address] MEDICARE PART A & B [facility] [place] [address] Advance Directives For more information, please contact: [phone] (9AM - 5PM [facility], Thursday-Thursday) Documents on File Type Date Recorded Patient De Icer Finisher Expl anation Healthcare Proxy 06/13/2022 3:05 PM [...] Code Status Confirmed With: Family Care Teams Numerical Control Lathe Operator Relationship Specialty Start Date End Date Jose A Alves MD [address] [place] [address] [place] [id number] PCP - General Internal Medicine 10/7/20 Additional Source Comments The information contained in this document represents components of the legal health record. It is not the complete legal health record.[facility]
--- OUTSIDE RECORDS SUMMARY | 2024-12-05 17:08 | XMS_ITS | Encounter Summary ---
Author Organization [facility] Address [address] [place] [address] [place] [address] Phone Care Team Providers Care City Planning Teacher Name Role Phone Jose A Alves MD Primary Care Provider [phone] Encounter Details Date Type Department Care Team (Late st Contact Info) Description 03/06/2023 Procedure Pass [facility] [address] [place] [address] Social History Tobacco Use Types Packs/Day Years [...] on filedocumented in this encounter Care Teams City Planning Teacher Relationship Specialty Start Date End Date Jose A Alves MD [address] [place] [address] [place] [address] PCP - General Internal Medicine 12/14/19 documented as of this encounter Additional Source Comments The information contained in this document represents components of the legal health record. It is not the complete legal health record.[facility]
== END 2024-12-05 15:34 | disposition home or self-care (01) ==
LOC: HO.HPS 15:03
PROVIDERS: Visit Provider Nurse Practitioner Family
DX: J44.9 Chronic obstructive pulmonary disease, unspecified (principal); Z87.09 Personal history of other diseases of the respiratory system; F81.9 Developmental disorder of scholastic skills, unspecified; Z87.891 Personal history of nicotine dependence; Z99.81 Dependence on supplemental oxygen; R91.1 Solitary pulmonary nodule
CPT/HCPCS: 99214

== ENCOUNTER → 2024-12-05 15:02 | Outpatient (BNVA) | payer MEDICARE, MEDICAID, SELFPAY | PROVIDERS: Visit Provider Nurse Practitioner Family | DX: J44.9 Chronic obstructive pulmonary disease, unspecified (principal); F81.9 Developmental disorder of scholastic skills, unspecified; R91.1 Solitary pulmonary nodule; Z87.891 Personal history of nicotine dependence; Z99.81 Dependence on supplemental oxygen; Z87.09 Personal history of other diseases of the respiratory system | CPT/HCPCS: 99212 ==

== ENCOUNTER 2024-12-30 10:30 | Outpatient (AMB) | payer MEDICARE, MEDICAID, SELFPAY ==
[2024-12-30 10:32] VITALS: BP 144/74; PULSE 107; O2SAT 94; BMI 33.8
--- NOTE | 2024-12-30 10:32 | A.OFFVIS_ITS ---
Vital Signs 12/30/24 10:32 Height 5 ft 7 in Weight 215 lb 13.321 oz BMI 33.8 BP 144/74 H Blood Pressure Location Lt brachial Position Sitting Pulse 107 H Pulse Source Pulse Oximeter Pulse Oximetry (%) 94 Oxygen Delivery Method Nasal Cannula Intake Visit Reasons: DMT2 Intake Note: Patient presents today for a follow-up on Type 2 Diabetes Mellitus: Last Diabetic Eye exam: Last exam was done early this year, not sure exactly of date. Last Podiatry Exam: Does not see a Paper [employer] Pulp Mill Operator Most recent HbA1c: 8.4% Random Glucose- 162 mg/dL Procurement Services Manager Required: No Accompanied by: Brother and sister Allergies No Known Allergies Allergy (Unknown, Verified 12/30/24 10:37) NOT APPLICABLE HPI Comments Details: 64-year-old male with a past medical history of COPD with supplemental oxygen use, hypertension, type 2 diabetes, cognitive developmental delay presents for diabetic management. He is accompanied by his brother and sister, Mariam. He resides with [facility], but his brother is also involved in caretaking. This is my 1st visit with the patient. Hemoglobin A1c 8.4% Patient uses Aleah 2+, but the sensor came off accidentally, and they could not get a new 1 from the manufacture. Reviewed glucometer Fourteen day average 164 Fasting readings are between 130-220 Current regimen metformin 1000 mg BID Actos 45 mg QD Tresiba 60 units at bedtime Humalog correction for point care > 200 6 units, >250 8 units and>300 10 units. Trulicity 3 mg weekly Farxiga 5 mg QD Past medication: Lantus switched to Tresiba due to hypoglycemia Hypoglycemia: No interval episodes. Baqsimi was ordered, but they do not have the prescription at home. Patient is not able to communicate low blood sugar symptoms due to cognitive impairment. Complications: Nephropathy ROS: Constitutional: No unexplained weight loss, fever, chills, fatigue or night sweats. Gastrointestinal: No anorexia, nausea, vomiting or diarrhea. No abdominal pain Neurologic: No headache, dizziness, syncope. Skin: No rash or wounds Endocrine: No cold or heat intolerance. No polyuria or polydipsia. Physical exam: Constitutional: Alert, in no distress. Neck: Supple, Full range of motion. No lymphadenopathy. No palpable thyroid masses. Respiratory: Clear to auscultation. Cardiovascular: S1 S2 regular. No murmurs. Feet: Warm and well perfused. Intact DP pulses. No ulcerations or open wounds. [facility] Medical History Obesity Type 2 diabetes mellitus with obesity COPD (chronic obstructive pulmonary disease) Cognitive developmental delay Diabetes mellitus Surgical History No pertinent past surgical history Family History Mother No problems noted. Father No problems noted. Social History Housing: House Patient Tobacco Use Status: Former Tobacco user Tobacco use type: Cigarette e-Cigarette/Vaping Use: Never Used Second Hand Smoke Exposure: No service: No Current occupational status: disabled Cognitive needs: Yes Hearing needs: No Vision needs: No Physical Exam Vital Signs: Last Vital Signs Pulse 107 H 12/30/24 10:32 BP 144/74 H 12/30/24 10:32 Pulse Ox 94 12/30/24 10:32 Oxygen Delivery Method Nasal Cannula 12/30/24 10:32 BMI result Body Mass Index 33.8 Results AMB Hemoglobin A1c AMB Hemoglobin A1c 8.4 % Last Edit by SREEDHAR Kaba on 12/30/24 10:54 Results Reviewed Results Reviewed: Laboratory Last Values Glucose (Clinic) 162 mg/dL (60-115) H 12/30/24 10:39 Hgb A1c (Clinic) 8.4 % (4.0-6.0) H 12/30/24 10:53 Laboratory Tests 05/05/23 12/21/23 07:51 08:06 Creatinine 0.81 Estimated GFR > 60 Urine Creatinine 153.45 Urine Microalbumin 132.0 Microalb/Creat Ratio 86.0 H Assessment & Plan Assessment & Plan (1) Type 2 diabetes mellitus with obesity: Code(s): E11.69 - Type 2 diabetes mellitus with other specified complication; E66.9 - Obesity, unspecified Category: Medical (2) Hypertension: Code(s): I10 - Essential (primary) hypertension Category: Medical Qualifiers: Hypertension type: unspecified Qualified Code(s): I10 - Essential (primary) hypertension (3) Cognitive developmental delay: Code(s): F81.9 - Developmental disorder of scholastic skills, unspecified Category: Medical Plan 64-year-old male with uncontrolled type 2 diabetes complicated by cognitive impairment and developmental delay. Given sample Aleah 2 + sensor. He has a working glucometer as well. Continue metformin 1000 mg BID Continue Actos 45 mg QD Continue Tresiba 60 units at bedtime Humalog > 200 6 units, >250 8 units and >300 10 units Continue Farxiga 5 mg QD Switch Trulicity to Mounjaro. Written instructions provided for treatment of hypoglycemia. I reordered Baqsimi since the patient is unable to convey symptoms of hypoglycemia due to d evelopmental delay. Ordered lab work. Blood pressure is mildly elevated today. Continue current regimen and recheck at next visit. Continue statin. Check lipid profile. Follow up in 1 month. Orders: Orders AMB Hemoglobin A1c Today E11.69 - Type 2 diabetes mellitus with other specified complication, E66.9 - Obesity, unspecified, Z13.9 - Encounter for screening, unspecified Creatinine Today E11.69 - Type 2 diabetes mellitus with other specified complication, E11.9 - Type 2 diabetes mellitus without complications, E66.9 - Obesity, unspecified Alanine Aminotransferase Today E11.69 - Type 2 diabetes mellitus with other specified complication, E66.9 - Obesity, unspecified Lipid Panel Today E11.69 - Type 2 diabetes mellitus with other specified complication, E66.9 - Obesity, unspecified, E78.5 - Hyperlipidemia, unspecified Vitamin B12 Today E11.69 - Type 2 diabetes mellitus with other specified complication, E66.9 - Obesity, unspecified, Z91.89 - Other specified personal risk factors, not elsewhere classified Aspartate Amino Transferase Today E11.69 - Type 2 diabetes mellitus with other specified complication, E66.9 - Obesity, unspecified Microalbumin, Random (w Creat) Today E11.69 - Type 2 diabetes mellitus with other specified complication, E11.9 - Type 2 diabetes mellitus without complications, E66.9 - Obesity, unspecified Medications: New tirzepatide (Mounjaro) for 4 weeks 2.5 mg (0.5 mL) subcut QWEEK 2 mL 0RF Refilled glucagon 3 mg/actuation (Baqsimi) May repeat in 15 minutes x1 3 mg intranasal ONCE PRN 2 ea 1RF Unresponsive hypoglycemia 30 days MDD 6mg Discontinued dulaglutide (Trulicity) Discontinued Reason: Doctor's Order 3 mg (0.5 mL) subcut QWEEK 2 mL 0RF Patient Instructions: Continue metformin 1000 mg BID Continue Actos 45 mg QD Continue Tresiba 60 units at bedtime Humalog > 200 6 units, >250 8 units and >300 10 units Continue Farxiga 5 mg QD Switch Trulicity to Mounjaro. Start 1 week after the last dose of Trulicity. If you experience low blood sugar (70), treat this by eating a chewable fruit ca ndy like skittles or jelly beans (about 8 pieces), 4 ounces (1/2 cup) of fruit juice or soda (not diet), 1 tablespoon of honey or 4 glucose tablets. If your blood sugar is under 50, take double the amount of one of the above. Recheck your blood sugar in 15 minutes. Coding Level of Care Code Est Pt Level 4 (85404) Complex EM visit Add On G2211 Diagnoses Type 2 diabetes mellitus with obesity E11.69; E66.9 Hypertension, unspecified type I10 Hypertension type: unspecified Cognitive developmental delay F81.9
[2024-12-30 10:54] LABS: Glucose, Whole Blood 162 mg/dL (60-115)
--- OUTSIDE RECORDS SUMMARY | 2024-12-30 12:05 | XMS_ITS | Clinical Summary ---
Author Organization [facility] Address [address] [place], [place] [address] Phone Care Team Providers Care Commissary Production Supervisor Name Role Phone Jose A Alves MD Primary Care Provider [phone] Allergies No known active allergies Medications BASAGLAR [...] BiPAP. -Healthcare proxy Mariam Lambert contacted at [phone] and confirms that patient would want BiPAP [...] typically on 75 untis at home. Continue lcppk-wk-sqyo's. Monitor blood sugar closely while on steroids. [...] FOBT 2006 SIGMOIDOSCOPY 2006 VIRTUAL COLONOSCOPY 2006 RSV VACCINE (1 - Risk 50-74 years 1-dose series) 08/20/2011 ZOSTER VACCINES (1 of 2) 08/20/2011 DIABETIC EYE EXAM 10/17/2020 HEMOGLOBIN A1C 09/09/2022 06/10/2022 BLOOD PRESSURE 10/14/2023 [...] EST) SODIUM 138 133 - 146 mmol/L [facility] CHLORIDE 93(L) 96 - 108 mmol/L [facility] POTASSIUM 3.7 3.3 - 5.1 mmol/L [facility] CO2 36(H) 21 - 35 mmol/L [facility] BUN 21(H) 6 - 19 mg/dL [facility] CREATININE 0.60 0.5 - 1.5 mg/dL [facility] GLUCOSE 80 70 - 99 mg/dL [facility] CALCIUM 9.3 8.4 - 10.3 mg/dL [facility] EGFR 110 >59 mL/min/1.7 3m2 [facility] Comment:Estimated glomerular filtration rate calculated using the CKD-EPI refit equation. ANION GAP 13 10 - 20 mmol/L [facility] Blood 03/09/2023 5:54 AM EST 03/09/2023 6:10 AM EST us Rachel Cardona MD LAB BLOOD ORDERABLES Final Re sult [address] [address] * (ABNORMAL) Hemoglobin A1c (06/10/2022 6:01 AM EDT) HEMOGLOBIN A1C 11.7(H) 4.3 - 5.8 % [facility] Blood 06/10/2022 6:01 AM EDT 06/10/2022 6:21 AM EDT us Debo Ramos DO LAB BLOOD ORDERABLES Final Re sult [facility] [address] [place] [address] from Last 3 Months or Most Recently Relevant to Health Maintenance Insurance MEDICARE PART A & B M[employer] MEDICARE PART A & B [facility] MEDICARE PART A & [place] [address] [place] [address] MEDICARE PART A & B [facility] MEDICARE PART A & [place] [address] [place] [address] MEDICARE PART A & [address] [place], [place] [address]HEALTH MEDICARE PART A & [place] [address] [place] [address] MEDICARE PART A & B [facility] MEDICARE PART A & B [facility] [place] [phone] Advance Directives For more information, please contact: [phone] (9AM - 5PM [facility] [place] [facility], Thursday-Thursday) Documents on File Type Date Recorded Patient Tax Consultant Expl anation Healthcare Proxy 06/13/2022 3:05 PM [...] Code Status Confirmed With: Family Care Teams Commissary Production Supervisor Relationship Specialty Start Date End Date Jose A Alves MD [address] [place] [address] [place] [address] PCP - General Internal Medicine 12/14/19 Additional Source Comments The information contained in this document represents components of the legal health record. It is not the complete legal health record.[facility]
--- OUTSIDE RECORDS SUMMARY | 2024-12-30 12:05 | XMS_ITS | Encounter Summary ---
Author Organization Located Within [facility] Address [address] [place] [address] [place] [phone] Phone Care Team Providers Care Director Of Instruction Name Role Phone Jose A Alves MD Primary Care Provider [phone] Encounter Details Date Type Department Care Team (Late st Contact Info) Description 03/06/2023 Procedure [facility] [address] [place] [address] Social History Tobacco Use Types Packs/Day Years [...] on filedocumented in this encounter Care Teams Director Of Instruction Relationship Specialty Start Date End Date Jose A Alves MD [address] [place] [address] [place] [address] PCP - General Internal Medicine 12/14/19 documented as of this encounter Additional Source Comments The information contained in this document represents components of the legal health record. It is not the complete legal health record.Located [facility]
== END 2024-12-30 11:24 | disposition home or self-care (01) ==
LOC: HO.ENCR 10:30
PROVIDERS: Visit Provider Physician Assistant Medical
DX: E11.69 Type 2 diabetes mellitus with other specified complication (principal); E66.9 Obesity, unspecified; I10 Essential (primary) hypertension; F81.9 Developmental disorder of scholastic skills, unspecified; Z13.9 Encounter for screening, unspecified

== ENCOUNTER → 2024-12-30 10:30 | Outpatient (BNVA) | payer MEDICARE, MEDICAID, SELFPAY | PROVIDERS: Visit Provider Physician Assistant Medical | DX: E11.69 Type 2 diabetes mellitus with other specified complication (principal); E11.65 Type 2 diabetes mellitus with hyperglycemia; E11.40 Type 2 diabetes mellitus with diabetic neuropathy, unspecified; E66.9 Obesity, unspecified; I10 Essential (primary) hypertension; F81.9 Developmental disorder of scholastic skills, unspecified; Z79.4 Long term (current) use of insulin; Z79.85 Long-term (current) use of injectable non-insulin antidiabetic drugs | CPT/HCPCS: 82947; 83036; 99212 ==

== ENCOUNTER 2025-02-28 11:03 | Outpatient (AMB) | payer MEDICARE, MEDICAID, SELFPAY ==
--- OUTSIDE RECORDS SUMMARY | 2025-02-15 10:30 | XMS_ITS | Encounter Summary ---
Author Organization [facility] Address [address] [facility] [address] [place] [phone] Phone Care Team Providers Care Field Supervisor Name Role Phone ColeCarloton JOCKEY ROOM CUSTODIAN Primary Care Provider Reason for Visit * Auth/Cert (Routine) Specialty Diagnoses / Procedures Referred By Fidel rivera Referred To Contact Referral ID Status Reason Start Date Expiration Date Visits Re quested Visits Authorized [id number] 1 1 Encounter Details Date Type Department Care Team ([facility] st Contact Info) Description 02/15/2025 10:30 AM EST Home Care Visit [facility] [address] [place], [place] [phone] Courtney Armando, RN [address] [place] [address] [email or web address] SN OASIS START OF CARE (SOC) Social History Tobacco Use Types Packs/Day Years Used Date Smoking Tobacco: Former Cigarettes Q uit: 2010 Smokeless Tobacco: Never Alcohol Use Standard Drinks/Week Comments Never 0 (1 standard drink = 0.6 oz pur e alcohol) Home Health Assessment: Transportation Answer Date Recorded Lack of Transportation (Medical) No 02/15/2025 Lack of Transportation (Non-Medical) No 02/15/2025 Patient Unable or Declines to Respond No 02/15/2025 Education Answer Date Recorded Are you interested in more education? Not on lucia e 07/03/2022 Are you concerned about learning? Not on file 07/03/2022 No 07/03/2022 No 07/03/2022 Food Answer Date Recorded Within the past 6 months we worried whether our food would run out before we got money to buy more. Never True 02/03/2025 Within the past 6 months the food we bought just didn't last and we didn't have enough money to get more. Never True Residential Stability Answer Date Recor ded What is your housing situation today? I have irving le 02/03/2025 How many times have you move d in the past 12 months? Zero (I did not move) 02/03/2025 Paying for Meds Answer Date Recorded Do you have trouble paying for medicines? No 02/03/2025 Paying Utility Bills Answer Date Record ed Do you have trouble paying your heating or elect ricity bill? No 02/03/2025 Transportation Answer Date Recorded Has the lack of transportati on kept you from medical appointments or from getting medications? No 02/03/2025 Digital Access Answer Date Recorded No 02/03/2025 Yes 02/03/2025 Do you have reliable internet access at home? Ye s 02/03/2025 Do you have a device (e.g., phone, tablet, computer) with a working camera? Yes 02/03/2025 Intimate Partner Violence Answer Date R ecorded Are you denied basic needs s uch as food, clothing, or medical care? No 02/03/2025 In the past 12 months have y ou been in a relationship with a person who hurts, threatens, or tries to control you? No 02/03/2025 Are you denied basic needs s uch as food, clothing, or medical care? No 02/03/2025 In the past 12 months have y ou been in a relationship with a person who hurts, threatens, or tries to control you? No 02/03/2025 Sex and Gender Information Value Date Recorded Sex Assigned at Male 06/09/2022 3:33 PM EDT Legal Sex Male 9:45 PM EDT Gender Identity Male 06/09/2022 3:33 PM EDT Sexual Orientation Straight 02/03/2025 9: 10 PM EST documented as of this encounter Last Filed Vital Signs Vital Sign Reading Time Taken Comments Blood Pressure 112/68 02/15/2025 10:46 AM EST Pulse 94 02/15/2025 10:46 AM EST Temperature 36.7 C (98.1 F) 02/15/2025 10:46 AM EST Respiratory Rate 18 02/15/2025 10:46 AM EST Oxygen Saturation 94% 02/15/2025 10:46 AM EST Inhaled Oxygen Concentration - - Weight - - Height - - Body Mass Index - - documented in this encounter Plan of Treatment Upcoming Encounters Date Type Department Care Team (Late st Contact Info) Description 03/07/2025 1:30 AM EST Appointment [facility] [address] [place] [phone] Courtney Armando, RN [address] [place] [address] [email or web address] 03/14/2025 1:30 AM EST Appointment [facility] [address] [place] [phone] Courtney Armando, RN [address] [place] [phone] [email or web address] 03/21/2025 1:00 AM EST Appointment [facility] [address] [place] [phone] Courtney Armando, RN [address] [place] [address] [email or web address] 03/28/2025 1:00 AM EST Appointment [facility] [address] [place] [phone] Courtney Armando, RN [address] [place] [address] [email or web address] 04/04/2025 1:00 AM EST Appointment [facility] [address] [place] [phone] Courtney Armando, RN [address] [place] [address] [email or web address] 04/11/2025 1:30 AM EST Appointment [facility] [address] [place] [phone] Courtney Armando, RN [address] [place] [address] documented as of this encounter Visit Diagnoses Not on filedocumented in this encounter Home Health Visit - Care Plan Visit Details Visit Type -SN OASIS START O F CARE (SOC) Discipline -Group Home Problems Problem Description Start Date Status Goals Interve ntions HH - Cardiovascular Function - Impaired Disciplines: All Active Home Health Disciplines 02/15/2025 Active 1 goal linked to scheduled/documen angelic intervention 1 goal intervention scheduled/document ed in this visit HH - Respiratory Status - Impaired Disciplines: All Active Home Health Disciplines 02/15/2025 Active 1 goal linked to scheduled/documen angelic intervention 3 goal interventions scheduled/document ed in this visit HH - Diabetes Disciplines: All Active Home Health Disciplines 02/15/2025 Active 1 goal linked to scheduled/documen angelic intervention 3 goal interventions scheduled/document ed in this visit HH - Medication Management Disciplines: All Active Home Health Disciplines 02/15/2025 Active 1 goal linked to scheduled/documen angelic intervention 2 goal interventions scheduled/document ed in this visit HH - Health Maintenance Disciplines: All Active Home Health Disciplines 02/15/2025 Active 1 goal linked to scheduled/documen angelic intervention 3 goal interventions scheduled/document ed in this visit HH - Focus of Care and Teaching Disciplines: All Active Home Health Disciplines w/RD 02/15/2025 Active 1 goal linked to scheduled/documen angelic intervention 1 goal intervention scheduled/document ed in this visit HH - Advance Care Planning Disciplines: All Active Home Health Disciplines 02/15/2025 Active 1 goal linked to scheduled/documen angelic intervention 1 goal intervention scheduled/document ed in this visit HH - Emergency Planning - Knowledge of Disciplines: All Active Home Health Disciplines 02/15/2025 Active 1 goal linked to scheduled/documen angelic intervention 3 goal interventions scheduled/document ed in this visit HH - Infection - Actual or Risk of Disciplines: All Active Home Health Disciplines 02/15/2025 Active 1 goal linked to scheduled/documen angelic intervention 2 goal interventions scheduled/document ed in this visit HH - Falls - Risk of Disciplines: All Active Home Health Disciplines 02/15/2025 Active 1 goal linked to scheduled/documen angelic intervention 1 goal intervention scheduled/document ed in this visit HH - Standard of Care Disciplines: All Active Home Health Disciplines 02/15/2025 Active 1 goal linked to scheduled/documen angelic intervention 7 goal interventions scheduled/document ed in this visit Goals Goal Associated Problem Outcome Goal Met? Visit Notes HH - Demonstrate/verbalize management of cardiac disease, treatments, and s/s of complications HH - Cardiovascular Function - Impaired No HH - Demonstrate/verbalize causes, impacts, and management of respiratory condition resulting in adequate oxygenation and ventilation HH - Respiratory Status - Impaired No HH - Knowledge and management of diabetes. HH - Diabetes No HH - Safe medication management, avoid unnecessary harm related to medication errors and/or interactions HH - Medication Management No HH - Patient preferences will be utilized to achieve optimal wellness and home safety. HH - Health Maintenance No HH - Communication and collaboration to achieve patient goals HH - Focus of Care and Teaching No HH - Verbalize awareness of Advance Care Planning. HH - Advance Care Planning No HH - Knowledge of options for managing care in the event of an emergency related situation. HH - Emergency Planning - Knowledge of No HH - Patient will have no new infection; any new infection that occurs will be identified and treated promptly; existing infection will resolve without complication Description: Patient and caregiver(s) will demonstrate understanding of infection prevention, monitoring, and treatment as appropriate HH - Infection - Actual or Risk of No HH - Knowledge and management of fall prevention measures. HH - Falls - Risk of No HH - Achieve care management for a safe to home/community discharge from homecare HH - Standard of Care No Interventions Intervention Associated Problem/Goal Status Variance Visit Notes HH - I/E cardiovascular function Description: cardiac disease management, energy conservation and prescribed activity level/restrictions and oxygen therapy, equipment use and safety Problem:HH - Cardiovascular Function - Impaired Goal:HH - Demonstrate/verbalize management of cardiac disease, treatments, and s/s of complications Performed HH - Oxygen Therapy Description: Dose, route, and frequency details are on the medication list. Problem:HH - Respiratory Status - Impaired Goal:HH - Demonstrate/verbalize causes, impacts, and management of respiratory condition resulting in adequate oxygenation and ventilation Performed HH - I/E use of respiratory care equipment: Description: CPAP/BiPAP, incentive spirometer, nebulizer and oxygen Problem:HH - Respiratory Status - Impaired Goal:HH - Demonstrate/verbalize causes, impacts, and management of respiratory condition resulting in adequate oxygenation and ventilation Performed HH - I/E respiratory disease management Description: breathing techniques, energy conservation and self-monitoring Problem:HH - Respiratory Status - Impaired Goal:HH - Demonstrate/verbalize causes, impacts, and management of respiratory condition resulting in adequate oxygenation and ventilation Performed HH - I/E diabetes management Description: s/s of hyper/hypoglycemia and self-monitoring Problem:HH - Diabetes Goal:HH - Knowledge and management of diabetes. Performed HH - Diabetic foot care including monitoring for the presence of skin lesions on the lower extremities and patient/caregiver education on proper foot care Problem:HH - Diabetes Goal:HH - Knowledge and management of diabetes. Performed HH - Assess blood sugar control, hypoglycemia/hyperglyc emia and diabetes-associated conditions (e.g., peripheral neuropathy) Problem:HH - Diabetes Goal:HH - Knowledge and management of diabetes. Performed HH - I/E medication management: administration, purpose, dosages, preparation, setup, scheduling, side effects, food/drug interactions, and potential complications as indicated Description: Update patient's copy of medication list as needed. Problem:HH - Medication Management Goal:HH - Safe medication management, avoid unnecessary harm related to medication errors and/or interactions Performed HH - Complete medication review every visit and medication reconciliation as indicated. Pharmacy information: Description: [facility] Problem:HH - Medication Management Goal:HH - Safe medication management, avoid unnecessary harm related to medication errors and/or interactions Performed HH - Assess the patient's care preferences, goals, and strengths, the assessment of the patient's mental, psychosocial, and cognitive status were completed, and the following were identified: Description: call caregiver to set up visit increase strength/endurance and managing symptoms and be treated at home housing stability, adequate support systems in place and willing to follow established treatment plan Problem: - Health Maintenance Goal:HH - Patient preferences will be utilized to achieve optimal wellness and home safety. Performed HH - Assess immunizations Description: Flu UTD Problem:HH - Health Maintenance Goal:HH - Patient preferences will be utilized to achieve optimal wellness and home safety. Performed HH - I/E immunizations Problem:HH - Health Maintenance Goal:HH - Patient preferences will be utilized to achieve optimal wellness and home safety. Performed HH - Focus of care, teaching completed and plan for next visit Problem: - Focus of Care and Teaching Goal:HH - Communication and collaboration to achieve patient goals Performed Primary Clinical Focus this Visit & Instruction Provided: Patient referred to homecare services s/p hospital stay for COPD exacerbation; hospital stay complicated by worsening hypercarbic and hypoxic resp failure requiring ICU stay. PMH includes insulin- dependent type 2 diabetes and intellectual disability. Discharged with a new night-time CPAP. Pt is alert and oriented x3 (able to answer all cognitive assessment question correctly) but is not an accurate historian and answers mostly 1 word answers whe n asked questions. Pt lives with his sister Mariam and her ; neither present at visit today; pt's brother Leonel is present at visit and answers most questions for patient. Leonel states there is some caregiver burnout and the family has discuss possible facility placement for patient; states they may start looking after the holidays. Pt is ambulating around home indp; no recent falls. Pt denies pain. Sob with min exertion; wearing o2 at 2L during visit. Leonel states patient has not been compliant with C PAP so far; takes off in the middle of the night. Pt denies coughing. Ls diminished. Encouraged deep breathing exercises. Appetite good. No gi issues. Did have some urinary retention while in hospital requiring hoskins which has since been removed. Pt repo rts no issues since being home. Medications managed by Mariam. Bs this am 187. Identified skills to be provided and taught: COPD/CHF management, home safety, med mgmt, s/sx of infection, s/sx to report The identified person that we will be teaching is pt and caregivers Other disciplines ordered to assist patient in meeting goals: PT Anticipated number of visits to meet goals: 4-6 Instruction Provided to: patient and caregiver Response to Instruction/Teaching : Is partially able to teach back topics as evidenced by needs further teaching & reinforcement. Plan for Next Visit Specific Focus & Education Needed: COPD/CHF education; assess meds, cvp, safety, gu New Orders: Updated Discharge Plan: HH - I/E advance directive information. Written information provided to the patient and caregiver, as indicated. The patient has: Description: the patient has not selected an advanced directive Problem:HH - Advance Care Planning Goal:HH - Verbalize awareness of Advance Care Planning. Performed HH - I/E management of care in an urgent or emergency (ER) situation: When to call your Home Care Team/911, ER plans, supplies, evacuation, when to contact local ER officials and how to stay informed Problem:HH - Emergency Planning - Knowledge of Goal:HH - Knowledge of options for managing care in the event of an emergency related situation. Performed HH - Emergency planning assessment: the emergency plan, supplies needed, emergency contact numbers and an evacuation plan were reviewed Description: Patient and Caregiver is/are knowledgeable of emergency plans. Problem:HH - Emergency Planning - Knowledge of Goal:HH - Knowledge of options for managing care in the event of an emergency related situation. Performed HH - Establish an individualized emergency plan: Description: Evacuation Plan is: stay home with family/cg support Priority Medical Needs are: continuous O2 A triage code has been assigned. A triage code and emergency plan will be reassessed for continued accuracy. Specific risks based on location: loss of ut ilities and severe storms An emergency supply list has been provided. Problem:HH - Emergency Planning - Knowledge of Goal:HH - Knowledge of options for managing care in the event of an emergency related situation. Performed HH - I/E infection Description: s/s of infection Problem:HH - Infection - Actual or Risk of Goal:HH - Patient will have no new infection; any new infection that occurs will be identified and treated promptly; existing infection will resolve without complication Performed HH - Assess infection risk and s/s Problem:HH - Infection - Actual or Risk of Goal:HH - Patient will have no new infection; any new infection that occurs will be identified and treated promptly; existing infection will resolve without complication Performed HH - I/E fall prevention measures Description: cognitive impairment: strategies to minimize impairments with memory deficits, distractibility, judgement, impulsivity, and safety awareness, diagnosis/age related changes/prior history of falls: symptoms and side effects of illness/injury/history of fal ls placing patient at increased risk for falls. may include management of dizziness/orthostasis, environmental hazards: modification of environment to include clear walkways, secure animals, and move frequently used items within reach, use of equipment a nd impaired functional mobility: supervision for mobility/activity, appropriate footwear and as indicated safe use of assistive device(s) Problem:HH - Falls - Risk of Goal:HH - Knowledge and management of fall prevention measures. Performed HH - Assess vital signs, pulse oximetry, pain, and as indicated, orthostatic vital signs Description: use agency-specific parameters Problem:HH - Standard of Care Goal:HH - Achieve care management for a safe to home/community discharge from homecare Performed HH - Assess skin integrity Problem:HH - Standard of Care Goal:HH - Achieve care management for a safe to home/community discharge from homecare Performed HH - I/E management of skin integrity and non-wound impairment Description: s/s of pressure injury, pressure reduction, and injury prevention measures Problem:HH - Standard of Care Goal:HH - Achieve care management for a safe to home/community discharge from homecare Performed HH - Assess safety needs of patient (other than falls) Problem:HH - Standard of Care Goal:HH - Achieve care management for a safe to home/community discharge from homecare Performed HH - I/E discharge plan Problem:HH - Standard of Care Goal:HH - Achieve care management for a safe to home/community discharge from homecare Performed HH - Complete Son scale at SOC and weekly Problem:HH - Standard of Care Goal:HH - Achieve care management for a safe to home/community discharge from homecare Performed HH - Assess weight Problem:HH - Standard of Care Goal:HH - Achieve care management for a safe to home/community discharge from homecare Performed documented in this encounter Care Teams Field Supervisor Relationship Specialty Start Date End Date Carlo Cole NP [address] [place] [address] [address] [place] [address] PCP - General Nurse Practitioner 02/03/25 documented as of this encounter Additional Source Comments The information contained in this document represents components of the legal health record. It is not the complete legal health record.[facility]
[2025-02-28 11:05] VITALS: BP 130/66; PULSE 92; O2SAT 95; BMI 33.7
--- NOTE | 2025-02-28 11:05 | A.OFFVIS_ITS ---
Vital Signs 02/28/25 11:05 Height 5 ft 7 in Weight 214 lb 15.211 oz BMI 33.7 BP 130/66 Blood Pressure Location Rt brachial Position Sitting Pulse 92 Pulse Source Pulse Oximeter Pulse Oximetry (%) 95 Oxygen Delivery Method Nasal Cannula Intake Visit Reasons: Type II diabetes Intake Note: Patient presents today for a follow-up on Type 2 Diabetes Mellitus: Last Diabetic Eye exam: Last exam was done early this year, not sure exactly of date. 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 Instructions: Doctor's Order blood sugar diagnostic (OneTouch Ultra Test strips) USE TO CHECK BLOOD SUGARS ONCE EVERY DAY blood sugar diagnostic (OneTouch Ultra Test strips) As directed twice a day blood sugar diagnostic (OneTouch Ultra Test strips) As directed tests 2 X/day blood-glucose meter (OneTouch Ultra2 Meter kit) As directed clonazepam 0.5 mg PO dapagliflozin propanediol (Farxiga) 5 mg PO DAILY 90 days flash glucose scanning reader (FreeStyle Ale[place] 2 [place]) As directed flash glucose sensor (FreeStyle Aleah 2 Sensor kit) USE DIRECTED glucagon 3 mg/actuation (Baqsimi) 3 mg intranasal ONCE PRN 30 days MDD 6mg insulin aspart U-100 (Novolog FlexPen U-100 Insulin aspart) 1 sliding scale dose subcut USEASDIRECTD insulin degludec (Tresiba FlexTouch U-200 insulin) 60 units (0.3 mL) subcut BEDTIME 30 days ipratropium-albuterol 0.5 mg-3 mg(2.5 mg base)/3 mL 3 mL inhalation BID PRN lancets As directed 3 twice a day lisinopril 10 mg PO DAILY metformin 1,000 mg PO BID 90 days nebulizers to use every 4 hours for shortness of breathe and wheezing pen needle, diabetic qid as needed pioglitazone 45 mg PO DAILY 30 days prednisone 40 mg (2 x 20 mg) PO DAILY tamsulosin 0.4 mg PO BEDTIME tirzepatide (Mounjaro) 5 mg (0.5 mL) subcut QWEEK HPI Comments Details: 64-year-old male with a past medical history of COPD with supplemental oxygen use, hypertension, type 2 diabetes, cognitive developmental delay presents for diabetic management. He is accompanied by his brother. He resides with his sister, Mariam. Hemoglobin A1c 8.4% 12/30/2024. Reviewed CGM data for the last 14 days G CA 8.6% Glucose variability 21.2% Very high 27% High 60% Target range 13% Low 0% My interpretation is that he has hyperglycemia throughout 24 hours. Current regimen metformin 1000 mg BID Actos 45 mg QD Tresiba 60 units at bedtime Humalog correction for point care > 200 6 units, >250 8 units and>300 10 units. Farxiga 5 mg QD Mounjaro 2.5 mg weekly Denies side effects on Mounjaro. Past medication: Lantus switched to Tresiba due to hypoglycemia. Trulicity switch to Mounjaro (patient had A1c above target despite increasing Trulicity to 3 mg.) Hypoglycemia: No interval episodes. Baqsimi was ordered, but they do not have the prescription at home. Patient is not able to communicate low blood sugar symptoms due to cognitive impairment. Complications: Nephropathy His brother reports he was hospitalized for a COPD exacerbation for about a week. He is doing better. Hypertension is treated with lisinopril. Hyperlipidemia is treated with atorvastatin. ROS: Constitutional: No unexplained weight loss, fever, chills, fatigue or night sweats. Gastrointestinal: No anorexia, nausea, vomiting or diarrhea. No abdominal pain Neurologic: No headache, dizziness, syncope. Skin: No rash or wounds Endocrine: No cold or heat intolerance. No polyuria or polydipsia. Physical exam: Constitutional: Alert, in no distress. Neck: Supple, Full range of motion. No lymphadenopathy. No palpable thyroid masses. Respiratory: Clear to auscultation. Cardiovascular: S1 S2 regular. No murmurs. [facility] Medical History Obesity Type 2 diabetes mellitus with obesity COPD (chronic obstructive pulmonary disease) Cognitive developmental delay Diabetes mellitus Surgical History No pertinent past surgical history Family History Mother No problems noted. Father No problems noted. Social History Housing: House Patient Tobacco Use Status: Former Tobacco user Tobacco use type: Cigarette e-Cigarette/Vaping Use: Never Used Second Hand Smoke Exposure: No service: No Current occupational status: disabled Cognitive needs: Yes Hearing needs: No Vision needs: No Physical Exam Vital Signs: Last Vital Signs Pulse 92 02/28/25 11:05 Resp 92 H 02/28/25 11:05 BP 130/66 02/28/25 11:05 Pulse Ox 95 02/28/25 11:05 Oxygen Delivery Method Nasal Cannula 02/28/25 11:05 BMI result Body Mass Index 33.7 Office Procedures Glucose Monitoring Details Details: See [facility] [address] - Glucose monitoring, continuous-physician I&R Procedure code (CPT) selection complete Results Reviewed Results Reviewed: Laboratory Last Values Glucose (Clinic) 160 mg/dL (60-115) H 02/28/25 11:15 Laboratory Tests 05/05/23 12/21/23 07:51 08:06 Creatinine 0.81 Estimated GFR > 60 Urine Creatinine 153.45 Urine Microalbumin 132.0 Microalb/Creat Ratio 86.0 H Assessment & Plan Assessment & Plan (1) Type 2 diabetes mellitus with obesity: Code(s): E11.69 - Type 2 diabetes mellitus with other specified complication; E66.9 - Obesity, unspecified Category: Medical (2) Hypertension: Code(s): I10 - Essential (primary) hypertension Category: Medical Qualifiers: Hypertension type: unspecified Qualified Code(s): I10 - Essential (primary) hypertension (3) Cognitive developmental delay: Code(s): F81.9 - Developmental disorder of scholastic skills, unspecified Category: Medical Plan 64-year-old male with uncontrolled type 2 diabetes complicated by cognitive impairment and developmental delay. Continue metformin 1000 mg BID Continue Actos 45 mg QD Continue Tresiba 60 units at bedtime Humalog glucose > 200 6 units, >250 8 units and >300 10 units Continue Farxiga 5 mg QD Increase Mounjaro to 5 mg weekly. Discussed need for titration based on r esponse and tolerability. They have written instructions for treatment of low blood sugars. I reordered Baqsimi since the patient is unable to convey symptoms of hypoglycemia due to developmental delay. Continue lisinopril for hypertension. Continue statin. Check lipid profile. Follow up in 1 month. Orders: Orders AMB Glucose Monitoring Today E11.9 - Type 2 diabetes mellitus without complications Medications: New tirzepatide (Mounjaro) 5 mg (0.5 mL) subcut QWEEK 2 mL 0RF Refilled glucagon 3 mg/actuation (Baqsimi) May repeat in 15 minutes x1 3 mg intranasal ONCE PRN 2 ea 1RF Unresponsive hypoglycemia 30 days MDD 6mg Discontinued tirzepatide (Mounjaro) for 4 weeks Discontinued Reason: Doctor's Order 2.5 mg (0.5 mL) subcut QWEEK 2 mL 0RF Patient Instructions: metformin 1000 mg twice daily Actos 45 mg Tresiba 60 units at bedtime Humalog for glucose > 200 6 units, >250 8 units and >300 10 units. Farxiga 5 mg Increase Mounjaro to 5 mg once weekly. This medication can be increased every 4 weeks based on tolerability and response. We expect a temporary increase in blood sugars when switching from Trulity to Mounjaro because he was taking a higher dose of Trulicity and had to start on lowest dose of Mounjaro to make sure he tolerated it. The dose range for Mounjaro is up to 15 mg. It is more effective after the dose is titrated. 5 mg is the minimum therapeutic dose in studies. I sent a new prescription for Baqsimi to the pharmacy. Please call the office if they do not dispense it to you. Coding Level of Care Code Est Pt Level 4 (56443) Diagnoses Type 2 diabetes mellitus with obesity E11.69; E66.9 Hypertension, unspecified type I10 Hypertension type: unspecified Cognitive developmental delay F81.9 CPT Codes Details - CPT: 62108 - Glucose monitoring, continuous-physician I&R ([id number])
[2025-02-28 11:18] LABS: Glucose, Whole Blood 160 mg/dL (60-115)
--- OUTSIDE RECORDS SUMMARY | 2025-02-28 12:24 | XMS_ITS | Clinical Summary ---
Author Organization [facility] Address [address] [place] [phone] Phone Care Team Providers Care Drywall Mechanic Name Role Phone DouglasCarlo Christopher SUBSTANCE ABUSE THERAPIST Primary Care Provider Allergies No known active allergies Medications BASAGLAR KWIKPEN U-100 INSULIN 100 unit/mL (3 mL) InPn injection pen Inject 75 Units under the skin nightly at bedtime. 06/16/19 23 Active ONETOUCH ULTRASOFT lancets USE DIRECTED ONCE DAILY 07/27/19 21 Active metFORMIN (GLUCOPHAGE) 1000 MG tablet Take 1,000 mg by mouth 2 (two) times a day. 09/08/19 21 Active pioglitazone (ACTOS) 45 MG tablet Take 45 mg by mouth daily. 09/13/19 21 Active albuterol 90 mcg/actuation inhaler Inhale 2 puffs into the lungs every 6 (six) hours as needed for wheezing. 1 Inhaler 10/21/19 Active Additional Information Patient not taking.Reported on 02/04/2025 NOVOLIN R FLEXPEN 100 unit/mL (3 mL) subcutaneous injection Inject 2 Units under the skin as needed for other (free text field) (per sliding scale). 06/10/19 23 Active lisinopril (PRINIVIL,ZESTRI L) 10 MG tablet Take 10 mg by mouth daily. 04/21/19 23 Active clonazePAM (KLONOPIN) 0.5 MG tablet Take 0.5 mg by mouth 2 (two) times a day. 05/20/19 23 Active OXYGEN-AIR DELIVERY SYSTEMS MISC 2 L by Intranasal route continuous. 06/16/19 23 Active atorvastatin (LIPITOR) 10 MG tablet Take 10 mg by mouth daily. Active TRULICITY 1.5 mg/0.5 mL subcutaneous injection Inject 1.5 mg under the skin every 7 days. ON fridays01/07/20 Active albuterol 2.5 mg /3 mL (0.083 %) nebulizer solution Take 2.5 mg by nebulization every 4 (four) hours as needed for wheezing or shortness of breath/dyspnea. 03/01/20 Active tamsulosin (FLOMAX) 0.4 mg Cap Take 0.4 mg by mouth nightly at bedtime. 03/21/19 Active FARXIGA 5 mg tablet Take 1 tablet by mouth every morning. 01/30/20 Active TRESIBA FLEXTOUCH U-200 200 unit/mL (3 mL) InPn injection pen Inject 60 Units under the skin nightly at bedtime. 02/02/20 Active MOUNJARO 2.5 mg/0.5 mL PnIj subcutaneous pen Inject 2.5 mg under the skin once a week. 01/07/20 Active finasteride (PROSCAR) 5 mg tablet Take 1 tablet (5 mg total) by mouth daily. 30 tablet 02/15/20 Active amoxicillin-clav ulanate (AUGMENTIN) 875-125 mg per tablet Take 1 tablet (875 mg of amoxicillin total) by mouth every 12 (twelve) hours for 6 doses. 6 tablet 02/14/20 25 025 Active Problems Problem Noted Date Diagnosed Date Hypertension 02/10/2025 Assessment & Plan (02/12/2025 12:03 PM EST): Hyperlipidemia 02/10/2025 Assessment & Plan (02/12/2025 12:03 PM EST): Anemia 02/10/2025 Leukocytosis 02/10/2025 Urinary retention 02/07/2025 Impaired cognitive ability 03/06/2023 COPD (chronic obstructive pulmonary disease) 07/2022 Assessment & Plan (02/12/2025 12:03 PM EST): Assessment & Plan (03/08/2023 2:14 PM EST): [...] will continue Duonebs QID, Albuterol Q4 PRN Chronic respiratory failure with hypoxia and hyp ercapnia 10/17/2020 Assessment & Plan (02/06/2025 12:07 PM EST): Secondary to COPD exacerbation. Continue management as above. Will check an ABG as he is more somnolent this evening and could be retaining CO2 Assessment & Plan (02/05/2025 6:17 PM EST): Secondary to COPD exacerbation. Continue management as above. Will check an ABG as he is more somnolent this evening and could be retaining CO2 Assessment & Plan (02/04/2025 12:38 AM EST): Secondary to COPD exacerbation. Continue management as above. Assessment & Plan (03/08/2023 2:07 PM EST): [...] BiPAP. -Healthcare proxy Mariam Lambert contacted at [phone] and confirms that patient would want BiPAP [...] with him. Hyponatremia 10/17/2020 Assessment & Plan (02/06/2025 12:07 PM EST): History of mild hyponatremia with sodium at 129. Corrected sodium for glucose is around 132-133. Possibly slightly lower due to SIADH in the setting of COPD exacerbation. - repeat bmp Assessment & Plan (02/05/2025 6:17 PM EST): History of mild hyponatremia with sodium at 129. Corrected sodium for glucose is around 132-133. Possibly slightly lower due to SIADH in the setting of COPD exacerbation. - repeat bmp Assessment & Plan (02/04/2025 12:38 AM EST): History of mild hyponatremia with sodium at 129. Corrected sodium for glucose is around 132-133. Possibly slightly lower due to SIADH in the setting of COPD exacerbation. - Continue to monitor. Assessment & Plan (03/08/2023 2:12 PM EST): [...] mellitus, type 2) 10/17/2020 Assessment & Plan (02/12/2025 12:03 PM EST): Assessment & Plan (02/06/2025 12:07 PM EST): Insulin-dependent type 2 diabetes on metformin, Actos, Basaglar, and sliding scale lispro. Also on Trulicity weekly. Here he was started on decreased glargine but in the setting of steroids his blood sugars are quite elevated Increased glargine to 60 units nightly (home dose is 75 units nightly) but he is also receiving 10 units with each meal plus sliding scale COVID will continue to adjust Assessment & Plan (02/05/2025 6:17 PM EST): Insulin-dependent type 2 diabetes on metformin, Actos, Basaglar, and sliding scale lispro. Also on Trulicity weekly. Here he was started on decreased glargine but in the setting of steroids his blood sugars are quite elevated Increased glargine to 60 units nightly (home dose is 75 units nightly) but he is also receiving 10 units with each meal plus sliding scale COVID will continue to adjust Assessment & Plan (02/04/2025 12:38 AM EST): Insulin-dependent type 2 diabetes on metformin, Actos, Basaglar, and sliding scale lispro. Also on Trulicity weekly. -Will place on basal bolus insulin regiment at a reduced dose of 30 units of Lantus, 5 units Premeal, and a low-dose insulin sliding scale. Continue to titrate as needed. Assessment & Plan (03/08/2023 2:07 PM EST): Continue with insulin. Will increase to Lantus 60 units. Patient is typically on 75 untis at home. Continue [id number]'s. Monitor blood sugar closely while on steroids. [...] Date Diagnosed Date Resolved Date COPD exacerbation 02/03/2025 02/10/2025 Assessment & Plan (02/06/2025 12:07 PM EST): Patient presented with COPD exacerbation likely in the setting of a viral illness. Influenza and COVID-negative. Presented with 2-day history of nonproductive cough and progressive shortness of breath. Evidence of low-grade fever at home but remained afebrile here. No significant leukocytosis or left shift. Reassuring VBG with evidence of compensation. CT chest without PE or evidence of pneumonia. Previously evaluated for CPAP therapy and nocturnal O2, patient did not tolerate and has not been using it at home. - DuoNeb 4 times daily with albuterol every 4 hours as needed for shortness of breath -changed to prednisone -Mucinex 600 mg twice daily -Continue supplemental O2 to keep SpO2 between 88 to 92%, wean O2 as tolerated. - Advise follow-up pulmonary outpatient, should have a discussion regarding maintenance medication with spacer teaching. - ICU transfer for BiPAP for increased somnolence, ABG showing retaining Co2 Assessment & Plan (02/05/2025 6:17 PM EST): Patient presented with COPD exacerbation likely in the setting of a viral illness. Influenza and COVID-negative. Presented with 2-day history of nonproductive cough and progressive shortness of breath. Evidence of low-grade fever at home but remained afebrile here. No significant leukocytosis or left shift. Reassuring VBG with evidence of compensation. CT chest without PE or evidence of pneumonia. Previously evaluated for CPAP therapy and nocturnal O2, patient did not tolerate and has not been using it at home. - DuoNeb 4 times daily with albuterol every 4 hours as needed for shortness of breath -changed to prednisone -Mucinex 600 mg twice daily -Continue supplemental O2 to keep SpO2 between 88 to 92%, wean O2 as tolerated. - Advise follow-up pulmonary outpatient, should have a discussion regarding maintenance medication with spacer teaching. Assessment & Plan (02/04/2025 12:38 AM EST): Patient presented with COPD exacerbation likely in the setting of a viral illness. Influenza and COVID-negative. Presented with 2-day history of nonproductive cough and progressive shortness of breath. Evidence of low-grade fever at home but remained afebrile here. No significant leukocytosis or left shift. Reassuring VBG with evidence of compensation. CT chest without PE or evidence of pneumonia. Previously evaluated for CPAP therapy and nocturnal O2, patient did not tolerate and has not been using it at home. - Admit to MedSurg -Repeat CBC and CMP in the morning - DuoNeb 4 times daily with albuterol every 4 hours as needed for shortness of breath -continue with IV Solu-Medrol 60 mg twice daily -Mucinex 600 mg twice daily -Continue supplemental O2 to keep SpO2 between 88 to 92%, wean O2 as tolerated. - Advise follow-up pulmonary outpatient, should have a discussion regarding maintenance medication with spacer teaching. Hyperkalemia 03/05/2023 02/10/2025 Assessment & Plan (03/08/2023 2:08 PM EST): Stable. Will monitor with a recheck tomorrow morning. Assessment & Plan (03/05/2023 12:43 PM EST): Potassium elevated to 5.7. Patient too somnolent to take Lokelma safely. - Insulin 10 units ordered. -Patient transferred to ICU for further care. COPD exacerbation 10/17/2020 03/04/2023 Assessment & Plan [...] Plan (10/18/2020 4:59 PM EDT): As above Encounters Date Type Department Care Team Description 02/24/2025 Episode Documentatio n [facility] [address] [place] [phone] Deann Peña 02/20/2025 9:45 AM EST Home Care Visit [facility] [address] [place] [phone] Nathalie Irizarry LPN SURVEILLANCE AGENT HOME VISIT 02/17/2025 Plan of Care Documentation [facility] [address] [place] [phone] 02/15/2025 10:30 AM EST Home Care Visit [facility] [address] [place] [phone] Courtney Armando, RN SN OASIS START OF CARE (SOC) 02/11/2025 Procedure Pass [facility], Ct Scan - [facility] [address] [place] [phone] 02/10/2025 Orders Only [facility] [address] [place] [phone] Homehealth, Interface MD Abdon 02/03/2025 6:22 PM EST - 02/13/2025 3:48 PM [facility] Hospital Encounter [facility] [place] [address] [address] [place] [address] Rafi Rojas MD Andrade, MD eDquan Power, MD Maritza Hirsch, MD Rut Freire, Radha Lezama DO, MPH Bill Baird MD Dumont, Redd Cameron MD, MS Lucas, MD Rachel Arriola Diana A, DO Yau, Cyrus H, MD Morkis-Madaj, MD Genia Garcia Brian S, DO Wong, Keith Limon MD Discharge Disposition: Home-Health Care c 02/03/2025 Procedure Pass [facility], Ct Scan - [facility] [address] [place] [address] from Last 3 Months Immunizations Immunization Administration Dates Next Due INFLUENZA, SPLIT VIRUS, TRIV ALENT W/ PRESERVATIVE IM 02/15/2015 Influenza Quadrivalent Prese rvative Free IM 01/18/2021,12/14/2019,02/28/2019,2017 Influenza Quadrivalent w/ Preservative IM 12/15/2017 Family History Medical History Relation Comments Hypertension Father Diabetes Mother Hypertension Mother Relation Status Comments Father Mother Social History Tobacco Use Types Packs/Day Years Used Date Smoking Tobacco: Former Cigarettes Q uit: 2010 Smokeless Tobacco: Never Tobacco Cessation:Counseling Given: Not Answered Alcohol Use Standard Drinks/Week Comments Never 0 [...] Orientation Straight 02/03/2025 9: 10 PM EST Last Filed Vital Signs Vital Sign Reading Time Taken Comments Blood Pressure 132/80 02/20/2025 10:24 AM EST Pulse 96 02/20/2025 10:24 AM EST Temperature 36.2 C (97.1 F) 02/20/2025 10:24 AM EST Respiratory Rate 18 02/20/2025 10:2 4 AM EST Oxygen Saturation 96% 02/20/2025 10: 24 AM EST Inhaled Oxygen Concentration 32% 09/2024 11:56 AM EST Weight 94.7 kg (208 lb 11.2 oz) 02/13/2025 5:18 AM EST Height 172.7 cm (5' 7.99 ) 02/10/2025 5:57 AM ES T Body Mass Index 31.74 02/10/2025 5:57 AM EST Plan of Treatment Upcoming Encounters Date Type Department Care Team (Late st Contact Info) Description 03/07/2025 1:30 AM EST Appointment [facility] [address] [place] [phone] Courtney Armando, RN [address] [place] [address] [email or web address] 03/14/2025 1:30 AM EST Appointment [facility] [address] [place] [phone] Courtney Armando, RN [address] [place] [phone] [email or web address] 03/21/2025 1:00 AM EST Appointment [facility] [address] [place] [phone] Courtney Armando, RN [address] [place] [address] [email or web address] 03/28/2025 1:00 AM EST Appointment [facility] [address] [place] [phone] Courtney Armando, RN [address] [place] [address] [email or web address] 04/04/2025 1:00 AM EST Appointment [facility] [address] [place] [phone] Courtney Armando, RN [address] [place] [address] [email or web address] 04/11/2025 1:30 AM EST Appointment [facility] [address], [place] [phone] Courtney Armando, RN [address] [place] [address] [email or web address] Due Date Last Done Comments [...] of 2) 08/20/2011 DIABETIC EYE EXAM 10/17/2020 INFLUENZA VACCINE (#1) 2024 , 12/14/2019, 02/28/2019, Additional history exists COVID-19 VACCINE ( season) 2024 02/26/2021, 05/17/2020, 04/19/2020 HEMOGLOBIN A1C 05/07/2025 02/06/2025, 06/10/2022 BLOOD PRESSURE 08/21/2025 02/20/2025 CREATININE LEVEL 02/13/2026 02/13/2025, 09/2024, 02/10/2025, Additional history exists POTASSIUM LEVEL 02/13/2026 02/13/2025, 12/0 09/2024, 02/10/2025, Additional history exists HEPATITIS A VACCINES Aged Out No long [...] Procedure Name Priority Date/Time Associated Diagnosis Comments POCT GLUCOSE Routine 02/13/2025 11:09 AM EST POCT GLUCOSE Routine 02/13/2025 7:31 AM EST BASIC METABOLIC PANEL (BMP) Routine 02/13/2025 5:24 AM EST CBC AND DIFFERENTIAL Routine 02/13/2025 5:23 AM EST CBC AND DIFFERENTIAL Routine 02/13/2025 5:23 AM EST POCT GLUCOSE Routine 02/12/2025 8:41 PM EST POCT GLUCOSE Routine 02/12/2025 5:04 PM EST POCT GLUCOSE Routine 02/12/2025 11:54 AM EST POCT GLUCOSE Routine 02/12/2025 7:53 AM EST DIFFERENTIAL, MANUAL (SYSMEX) Today 02/12/2025 5:23 AM EST CBC AND DIFFERENTIAL Routine 02/12/2025 5:23 AM EST NT-PROBNP Routine 02/12/2025 5:23 AM EST C-REACTIVE PROTEIN (CRP) Routine 02/12/2025 5:23 AM EST CBC AND DIFFERENTIAL Routine 02/12/2025 5:23 AM EST BASIC METABOLIC PANEL (BMP) Routine 02/12/2025 5:23 AM EST POCT GLUCOSE Routine 02/11/2025 10:13 PM EST POCT GLUCOSE Routine 02/11/2025 8:39 PM EST POCT GLUCOSE Routine 02/11/2025 5:20 PM EST STREPTOCOCCUS PNEUMONIAE/LEGIONELLA ANTIGEN, URINE Routine 02/11/2025 2:[address] CHEST PULMONARY ANGIOGRAM (ACUTE) Routine 02/11/2025 12:57 PM EST POCT GLUCOSE Routine 02/11/2025 11:36 AM EST POCT GLUCOSE Routine 02/11/2025 8:12 AM EST POCT GLUCOSE Routine 02/10/2025 9:12 PM EST POCT GLUCOSE Routine 02/10/2025 5:02 PM EST POCT GLUCOSE Routine 02/10/2025 11:43 AM EST POCT GLUCOSE Routine 02/10/2025 7:34 AM EST XR ABDOMEN 1 VIEW Routine 02/10/2025 6:1 5 AM EST CBC AND DIFFERENTIAL Routine 02/10/2025 4:56 AM EST PHOSPHORUS Routine 02/10/2025 4:56 AM EST MAGNESIUM Routine 02/10/2025 4:56 AM EST CBC AND DIFFERENTIAL Routine 02/10/2025 4:56 AM EST BASIC METABOLIC PANEL (BMP) Routine 02/10/2025 4:56 AM EST POCT GLUCOSE Routine 02/09/2025 9:03 PM EST POCT GLUCOSE Routine 02/09/2025 8:29 PM EST POCT GLUCOSE Routine 02/09/2025 4:03 PM EST POCT GLUCOSE Routine 02/09/2025 12:14 PM EST POCT GLUCOSE Routine 02/09/2025 8:07 AM EST RED BLOOD CELL (RBC) MORPHOLOGY Today 02/09/2025 4:06 AM EST CBC AND DIFFERENTIAL Routine 02/09/2025 4:06 AM EST PHOSPHORUS Routine 02/09/2025 4:06 AM EST MAGNESIUM Routine 02/09/2025 4:06 AM EST BASIC METABOLIC PANEL (BMP) Routine 02/09/2025 4:06 AM EST CBC AND DIFFERENTIAL Routine 02/09/2025 4:06 AM EST POCT GLUCOSE Routine 02/08/2025 8:43 PM EST POCT GLUCOSE Routine 02/08/2025 5:11 PM EST POCT GLUCOSE Routine 02/08/2025 1:31 PM EST POCT GLUCOSE Routine 02/08/2025 7:45 AM EST CBC Routine 02/08/2025 4:00 AM EST MAGNESIUM Routine 02/08/2025 4:00 AM EST PHOSPHORUS Routine 02/08/2025 4:00 AM EST POCT GLUCOSE Routine 02/07/2025 9:17 PM EST POCT GLUCOSE Routine 02/07/2025 4:45 PM EST BASIC METABOLIC PANEL (BMP) Timed 02/07/2025 4:13 PM EST POCT GLUCOSE Routine 02/07/2025 12:18 PM EST XR CHEST 1 VIEW Routine 02/07/2025 11:48 AM EST ARTERIAL BLOOD GAS STAT 02/07/2025 9: 09 AM EST LAB ADD-ON Routine 02/07/2025 8:50 AM EST POCT GLUCOSE Routine 02/07/2025 7:51 AM EST CORTISOL Routine 02/07/2025 3:52 AM EST CBC Routine 02/07/2025 3:52 AM EST MAGNESIUM Routine 02/07/2025 3:52 AM EST COMPREHENSIVE METABOLIC PANEL (CMP) Routine 02/07/2025 3:52 AM EST PHOSPHORUS Routine 02/07/2025 3:52 AM EST POCT GLUCOSE Routine 02/06/2025 7:34 PM EST POCT GLUCOSE Routine 02/06/2025 5:31 PM EST MRSA PCR SCREEN Routine 02/06/2025 3:27 PM EST POCT GLUCOSE Routine 02/06/2025 12:46 PM EST LAB ADD-ON Routine 02/06/2025 9:11 AM EST POCT GLUCOSE Routine 02/06/2025 8:12 AM EST ARTERIAL BLOOD GAS Routine 02/06/2025 7: 29 AM EST SARS-COV-2, PCR CEPHEID Today 02/06/2025 6:41 AM EST COVID PANDEMIC RESPIRATORY VIRAL ORDER (PRO) Routine 02/06/2025 6:41 AM EST HEMOGLOBIN A1C Routine 02/06/2025 6:01 AM EST CBC AND DIFFERENTIAL Routine 02/06/2025 6:01 AM EST BASIC METABOLIC PANEL (BMP) Routine 02/06/2025 6:01 AM EST CBC AND DIFFERENTIAL Routine 02/06/2025 6:01 AM EST POCT GLUCOSE Routine 02/06/2025 4:03 AM EST POCT GLUCOSE Routine 02/05/2025 10:35 PM EST POCT GLUCOSE Routine 02/05/2025 7:51 PM EST ARTERIAL BLOOD GAS STAT 02/05/2025 6: 55 PM EST BASIC METABOLIC PANEL (BMP) STAT 02/05/2025 6:23 PM EST POCT GLUCOSE Routine 02/05/2025 6:08 PM EST POCT GLUCOSE Routine 02/05/2025 4:54 PM EST POCT GLUCOSE Routine 02/05/2025 11:51 AM EST POCT GLUCOSE Routine 02/05/2025 7:34 AM EST ECG 12-LEAD Routine 02/04/2025 10:27 PM EST POCT GLUCOSE Routine 02/04/2025 10:18 PM EST IP CONSULT TO WOUND NURSE Routine 02/04/2025 8:25 PM EST POCT GLUCOSE Routine 02/04/2025 5:15 PM EST POCT GLUCOSE Routine 02/04/2025 11:41 AM EST POCT GLUCOSE Routine 02/04/2025 8:13 AM EST CBC AND DIFFERENTIAL Routine 02/04/2025 5:45 AM EST CBC AND DIFFERENTIAL Routine 02/04/2025 5:45 AM EST COMPREHENSIVE METABOLIC PANEL (CMP) Routine 02/04/2025 5:45 AM EST POCT GLUCOSE Routine 02/04/2025 1:[address] CHEST PULMONARY ANGIOGRAM (ACUTE) Routine 02/03/2025 9:40 PM EST D-DIMER STAT 02/03/2025 9:12 PM EST VENOUS BLOOD GAS STAT 02/03/2025 9:12 PM EST TROPONIN STAT 02/03/2025 8:17 PM EST CBC AND DIFFERENTIAL STAT 02/03/2025 7:00 PM EST TROPONIN STAT 02/03/2025 7:00 PM EST NT-PROBNP STAT 02/03/2025 7:00 PM EST BASIC METABOLIC PANEL (BMP) STAT 02/03/2025 7:00 PM EST CBC AND DIFFERENTIAL STAT 02/03/2025 7:00 PM EST XR CHEST PA AND LATERAL 2 VIEWS STAT 02/03/2025 6:48 PM EST SARS-COV-2, INFLUENZA A/B, PCR ÓSCAR STAT 02/03/2025 6:40 PM EST COVID PANDEMIC RESPIRATORY VIRAL ORDER (PRO) STAT 02/03/2025 6:40 PM EST ECG 12-LEAD STAT 02/03/2025 6:37 PM EST from Last 3 Months Results * (ABNORMAL) POCT Glucose (02/13/2025 11:09 AM EST) Only the most recent of44 resultswithin the time period is included. Glucose 299(H) 70 - 99 mg/dL 02/13/2025 11:10 AM [facility] Blood (Blood) 02/13/2025 11: 09 AM EST 02/13/2025 11:10 AM EST Don Cormier DO LAB POCT DOCKED DEVICE UNSOLI CTED RESULTS Final Result [address] [address] * (ABNORMAL) Basic Metabolic Panel (BMP) (02/13/2025 5:24 AM EST) Only the most recent of8 resultswithin the time period is included. Sodium 137 136 - 145 mmol/L 02/13/2025 6:12 AM [facility] Potassium 4.7 3.4 - 5.1 mmol/L 02/13/2025 6:12 AM [facility] Chloride 96(L) 98 - 107 mmol/L 02/13/2025 6:12 AM [facility] CO2 32(H) 20 - 31 mmol/L 02/13/2025 6:12 AM [facility] BUN 15 6 - 23 mg/dL 02/13/2025 6:12 AM [facility] Creatinine 0.70 0.60 - 1.30 mg/dL 02/13/2025 6:12 AM [facility] Glucose 101(H) 70 - 99 mg/dL 02/13/2025 6:12 AM [facility] Calcium 9.3 8.5 - 10.5 mg/dL 02/13/2025 6:12 AM [facility] eGFR 104 >59 mL/min/1.7 3m2 02/13/2025 6:12 AM [facility] Comment:Estimated glomerular filtration rate calculated using the CKD-EPI refit equation. Anion Gap 9 3 - 17 mmol/L 02/13/2025 6:12 AM [facility] Blood (Blood) Venipuncture / Unknown 02/13/2025 5:24 AM EST 02/13/2025 5:40 AM EST us Elva Luther MD LAB BLOOD BKR OR DERABLES Final Result [facility] [address] [place] [address] * (ABNORMAL) CBC and Differential (02/13/2025 5:23 AM EST) Only the most recent of7 resultswithin the time period is included. WBC 12.82(H) 4.00 - 11.00 K/uL 02/13/2025 5:48 AM [facility] RBC 4.59 4.50 - 5.90 M/uL 02/13/2025 5:48 AM [facility] Hemoglobin 13.8 13.5 - 17.5 g/dL 02/13/2025 5:48 AM [facility] Hematocrit 44.4 41.0 - 53.0 % 02/13/2025 5:48 AM [facility] MCV 96.7 80.0 - 100.0 fL 02/13/2025 5:48 AM [facility] MCH 30.1 27.0 - 31.0 pg 02/13/2025 5:48 AM [facility] MCHC 31.1(L) 32.0 - 36.0 g/dL 02/13/2025 5:48 AM [facility] MPV 9.4 8.4 - 12.0 fL 02/13/2025 5:48 AM [facility] RDW-CV 13.2 11.5 - 14.5 % 02/13/2025 5:48 AM [facility] PLT 266 150 - 450 K/uL 02/13/2025 5:48 AM [facility] Neutrophils 74.1 % 02/13/2025 5:48 AM [facility] Lymphocytes 14.7 % 02/13/2025 5:48 AM [facility] Monocytes 8.0 % 02/13/2025 5:48 AM [facility] Eosinophils 1.7 % 02/13/2025 5:48 AM [facility] Basophils 0.2 % 02/13/2025 5:48 AM [facility] Imm Grans 1.3 % 02/13/2025 5:48 AM [facility] NRBC 0.0 <=0.0 /100 WBCs 02/13/2025 5:48 AM [facility] Absolute Neutrophils 9.49(H) 1.92 - 7.60 K/uL 02/13/2025 5:48 AM [facility] Absolute Lymphocytes 1.88 0.72 - 4.10 K/uL 02/13/2025 5:48 AM [facility] Absolute Monocytes 1.03 0.16 - 1.10 K/uL 02/13/2025 5:48 AM [facility] Absolute Eosinophils 0.22 0.00 - 0.50 K/uL 02/13/2025 5:48 AM [facility] Absolute Basophils 0.03 0.00 - 0.15 K/uL 02/13/2025 5:48 AM [facility] Absolute Imm Grans 0.17(H) 0.00 - 0.09 K/uL 02/13/2025 5:48 AM [facility] Absolute NRBC 0.00 <=0.00 K cells/uL 02/13/2025 5:48 AM [facility] Absolute Neutrophils 9.49(H) 1.92 - 7.60 K/uL 02/13/2025 5:48 AM [facility] Comment:Automated cell count . Manual ANC may differ if performed. Diff Type Auto 02/13/2025 5:48 AM [facility] Blood (Blood) Venipuncture / Unknown 02/13/2025 5:23 AM EST 02/13/2025 5:40 AM EST us Elva Luther MD LAB BLOOD BKR OR DERABLES Final Result [facility] [address] [place] [address] * (ABNORMAL) DIFFERENTIAL, MANUAL (SYSMEX) (02/12/2025 5:23 AM EST) Neutrophils 76.0 % 02/12/2025 6:20 AM [facility] Bands 0.0 % 02/12/2025 6:20 AM [facility] Lymphocytes 15.0 % 02/12/2025 6:20 AM [facility] Comment:Few atypical lymphoc ytes seen. Monocytes 6.0 % 02/12/2025 6:20 AM [facility] Eosinophils 3.0 % 02/12/2025 6:20 AM [facility] Basophils 0.0 % 02/12/2025 6:20 AM [facility] Absolute Neutrophils 9.93(H) 1.92 - 7.60 K/uL 02/12/2025 6:20 AM [facility] Absolute Lymphocytes 1.96 0.72 - 4.10 K/uL 02/12/2025 6:20 AM [facility] Absolute Monocytes 0.78 0.16 - 1.10 K/uL 02/12/2025 6:20 AM [facility] Absolute Eosinophils 0.39 0.00 - 0.50 K/uL 02/12/2025 6:20 AM [facility] Absolute Basophils 0.00 0.00 - 0.15 K/uL 02/12/2025 6:20 AM [facility] Diff Type Manual 02/12/2025 6:20 AM [facility] Blood (Blood) Venipuncture / Unknown 02/12/2025 5:23 AM EST 02/12/2025 5:43 AM EST us Monie Coy PA-C, MS LAB BLOOD BKR ORD ERABLES Final Result [facility] [address] [place] [address] * C-Reactive Protein (CRP) (02/12/2025 5:23 AM EST) C Reactive Protein 4.6 <10.0 mg/L 02/12/2025 6:17 AM [facility] Comment:NOTE: This reference range is for the evaluation of inflammation. Order CRP, High Sensitivity for cardiac risk status evaluation. Blood (Blood) Venipuncture / Unknown 02/12/2025 5:23 AM EST 02/12/2025 5:43 AM EST Monie Coy PA-C, MS LAB BLOOD BKR ORD ERABLES Final Result Performing Organization Address City/[facility]/ZIP Co de Phone Number [address] [address] * NT-proBNP (02/12/2025 5:23 AM EST) Only the most recent of2 resultswithin the time period is included. NT-ProBNP 54 0 - 900 pg/mL 02/12/2025 6:17 AM EST [facility] Comment: Age <50 years: 0-450 pg/ml Age 50-75 years: 0-900 pg/ml Age >75 years: 0-1800 pg/ml A NT-proBNP <300 pg/ml effectively rules out acute congestive heart failure, with 99% negative predictive value. NT-proBNP cutoffs were developed for the diagnosis of heart failure. Marked elevations in NT-proBNP levels may be observed in states other than left ventricular congestive heart failure. Falsely low NT-proBNP in congestive heart failure patients may be observed with increasing body-mass index. Blood (Blood) Venipuncture / Unknown 02/12/2025 5:23 AM EST 02/12/2025 5:43 AM EST Monie Coy PA-C, MS LAB BLOOD BKR ORD ERABLES Final Result [address] [address] * Streptococcus Pneumoniae/Legionella Antigen, Urine (02/11/2025 2:22 PM EST) Pathologist [facility] Strep pneumo Ag Negative Negative 02/12/2025 10:54 AM EST [facility] Urine Legionella Ag Negative for Legionella pneumophila serogroup 1 Negative for Legionella pneumophila serogroup 1 02/12/2025 10:54 AM EST [facility] Urine (Urine, Voided) Non-Blood Collection / Unknown 02/11/2025 2:22 PM EST 02/11/2025 2:45 PM EST us Monie Coy PA-C, MS LAB URINE ORDERAB LES Final Result Performing Organization Address City/State/[facility] Co de Phone Number [address] [address] * CT CHEST PULMONARY ANGIOGRAM (ACUTE) (02/11/2025 12:57 PM EST) Anatomical Region Laterality Modality Chest, Thoracic Vasculature Comp uted Tomography 02/11/2025 1:05 PM EST Impressions 02/11/2025 1:11 PM EST 1. No evidence of pulmonary embolism. 2. Increased consolidative opacities in the right greater than left lower lobes, likely aspiration or pneumonia. 3. Few scattered pulmonary nodules measuring up to 3 mm. RECOMMENDATIONS: Follow-up chest CT in 3-6 months. Narrative 02/11/2025 1:[address] CHEST PULMONARY ANGIOGRAM (ACUTE) Referring clinician's provided indication for this examination in Epic: * Dyspnea, chronic, unclear etiology TECHNIQUE: Multidetector CT pulmonary angiography was performed after administration of intravenous contrast using tailored dose modulation techniques. 3D angiographic postprocessing techniques were acquired in the form of axial maximum intensity projection images (MIPS). COMPARISON: CT CHEST PULMONARY ANGIOGRAM (ACUTE) FINDINGS: Pulmonary Angiogram: Technical quality: There is adequate opacification of the pulmonary arteries. There is no filling defect to suggest pulmonary embolism. There are no CT findings of right heart strain. Proximal to the bifurcation of the main pulmonary artery, the main pulmonary artery is 31 mm in diameter. FINDINGS: Devices/Tubes/Lines: None. Lungs: Central airways are patent. Moderate centrilobular and paraseptal emphysema. Mild diffuse bronchial wall thickening with scattered mucous plugging. Increased consolidative opacities in the right greater than left lower lobes. Scattered nodules including a 3 mm nodule in the right lower lobe (6:369), and 2 mm nodule in the left upper lobe (6:256). Pleura: No pleural effusion or pneumothorax. Mediastinum: No actionable thyroid nodules. The cardiac chambers are normal in size. No pericardial effusion. Mild amount of coronary calcifications. Lymph Nodes: No enlarged supraclavicular, axillary, mediastinal, or hilar lymph nodes. Upper Abdomen: No abnormality detected in the visualized upper abdomen. Chest Wall: No chest wall mass. Symmetric gynecomastia. Bones: Degenerative changes without suspicious lytic or blastic lesions. Procedure Note Parth Mcginnis DO, MPH - 02/11/2025 CT CHEST PULMONARY ANGIOGRAM (ACUTE) Referring clinician's provided indication for this examination in Epic: *Dyspnea, chronic, unclear etiology TECHNIQUE: Multidetector CT pulmonary angiography was performed afteradministration of intravenous contrast using tailored dose modulationtechniques. 3D angiographic postprocessing techniques were acquired in theform of axial maximum intensity projection images (MIPS). COMPARISON: CT CHEST PULMONARY ANGIOGRAM (ACUTE) 2024- FINDINGS: Pulmonary Angiogram: Technical quality: There is adequate opacification of the pulmonaryarteries. There is no filling defect to suggest pulmonary embolism. There are no CT findings of right heart strain. Proximal to the bifurcation of the main pulmonary artery, the mainpulmonary artery is 31 mm in diameter. FINDINGS: Devices/Tubes/Lines: None. Lungs: Central airways are patent. Moderate centrilobular and paraseptalemphysema. Mild diffuse bronchial wall thickening with scattered mucousplugging. Increased consolidative opacities in the right greater than leftlower lobes. Scattered nodules including a 3 mm nodule in the right lowerlobe (6:369), and 2 mm nodule in the left upper lobe (6:256). Pleura: No pleural effusion or pneumothorax. Mediastinum: No actionable thyroid nodules. The cardiac chambers arenormal in size. No pericardial effusion. Mild amount of coronarycalcifications. Lymph Nodes: No enlarged supraclavicular, axillary, mediastinal, or hilarlymph nodes. Upper Abdomen: No abnormality detected in the visualized upper abdomen. Chest Wall: No chest wall mass. Symmetric gynecomastia. Bones: Degenerative changes without suspicious lytic or blastic lesions. IMPRESSION: 1. No evidence of pulmonary embolism. 2. Increased consolidative opacities in the right greater than left lowerlobes, likely aspiration or pneumonia. 3. Few scattered pulmonary nodules measuring up to 3 mm. RECOMMENDATIONS: Follow-up chest CT in 3-6 months. us Monie Coy PA-C, MS IMG CT CHEST F inal Result * XR ABDOMEN 1 VIEW (02/10/2025 6:15 AM EST) Anatomical Region Laterality Modality Abdomen Computed Radiogr aphy 02/10/2025 8:18 AM EST Impressions 02/10/2025 8:19 AM EST 1. Moderate volume fecal burden throughout the colon. No evidence of intestinal obstruction. Narrative 02/10/2025 8:19 AM EST XR ABDOMEN 1 VIEW Referring clinician's provided indication for this examination in [facility]: Abdominal distension COMPARISON: Chest radiograph 02/07/2025 FINDINGS: Tubes/Lines: None Bowel: No pathologically distended loops of small bowel. Moderate volume fecal burden throughout the colon. Mild multilevel spondylosis. Mild degenerative changes of the hips. Minimal bibasilar airspace opacification. Procedure Note Maria E Walters MD - 02/10/2025 XR ABDOMEN 1 VIEW Referring clinician's provided indication for this examination in [facility]:Abdominal distension COMPARISON: Chest radiograph 02/07/2025 FINDINGS: Tubes/Lines: None Bowel: No pathologically distended loops of small bowel. Moderate volumefecal burden throughout the colon. Mild multilevel spondylosis. Mild degenerative changes of the hips.Minimal bibasilar airspace opacification. IMPRESSION: 1. Moderate volume fecal burden throughout the colon. No evidence ofintestinal obstruction. us Terence Wade NP IMG XR ABDOMEN Final Result * Phosphorus (02/10/2025 4:56 AM EST) Only the most recent of4 resultswithin the time period is included. Phosphorus 4.3 2.5 - 4.5 mg/dL 02/10/2025 5:32 AM EST [facility] Blood (Blood) Venipuncture / Unknown 02/10/2025 4:56 AM EST 02/10/2025 5:01 AM EST us Redd Queen MD, MS LAB BLOOD BKR ORDERABLES Final Result Performing Organization Address City/[facility]/ZIP Co de Phone Number [address] [address] * Magnesium (02/10/2025 4:56 AM EST) Only the most recent of4 resultswithin the time period is included. Magnesium 2.0 1.7 - 2.6 mg/dL 02/10/2025 5:32 AM EST [facility] Blood (Blood) Venipuncture / Unknown 02/10/2025 4:56 AM EST 02/10/2025 5:01 AM EST us Redd Queen MD, MS LAB BLOOD BKR ORDERABLES Final Result Performing Organization Address [facility] Co de Phone Number [address] [address] * Red Blood Cell (RBC) Morphology (02/09/2025 4:06 AM EST) RBC Morphology Reviewed 02/09/2025 5:08 AM EST [facility] Polychromasia 1+ 02/09/2025 5:08 AM EST [facility] Stomatocytes present 02/09/2025 5:08 AM EST [facility] Blood (Blood) Venipuncture / Unknown 02/09/2025 4:06 AM EST 02/09/2025 4:24 AM EST us Skip Hayes [employer] LAB BLOOD BKR ORDERABLES Final Result Performing Organization Address City/[facility]/ZIP Co de Phone Number [address] [address] * (ABNORMAL) CBC (02/08/2025 4:00 AM EST) Only the most recent of2 resultswithin the time period is included. WBC 11.21(H) 4.00 - 11.00 K/uL 02/08/2025 4:19 AM [facility] RBC 4.27(L) 4.50 - 5.90 M/uL 02/08/2025 4:19 AM [facility] Hemoglobin 13.0(L) 13.5 - 17.5 g/dL 02/08/2025 4:19 AM [facility] Hematocrit 41.8 41.0 - 53.0 % 02/08/2025 4:19 AM [facility] MCV 97.9 80.0 - 100.0 fL 02/08/2025 4:19 AM [facility] MCH 30.4 27.0 - 31.0 pg 02/08/2025 4:19 AM [facility] MCHC 31.1(L) 32.0 - 36.0 g/dL 02/08/2025 4:19 AM [facility] PLT 295 150 - 450 K/uL 02/08/2025 4:19 AM [facility] MPV 9.8 8.4 - 12.0 fL 02/08/2025 4:19 AM [facility] RDW-CV 13.1 11.5 - 14.5 % 02/08/2025 4:19 AM [facility] Absolute NRBC 0.00 <=0.00 K cells/uL 02/08/2025 4:19 AM [facility] NRBC 0.0 <=0.0 /100 WBCs 02/08/2025 4:19 AM [facility] Blood (Blood) Venipuncture / Unknown 02/08/2025 4:00 AM EST 02/08/2025 4:08 AM EST us Radha Bettencourt DO, MPH LAB BLOOD BKR O RDERABLES Final Result [address] [address] * XR CHEST 1 VIEW (02/07/2025 11:48 AM EST) Anatomical Region Laterality Modality Chest Computed Radiogr aphy 02/07/2025 11:5 4 AM EST Impressions 02/07/2025 11:56 AM EST New focal increased opacity at the right lung base is nonspecific and may be due to atelectasis with pneumonia/aspiration not excluded. Follow-up is advised. Narrative 02/07/2025 11:56 AM EST XR CHEST 1 VIEW Referring clinician's provided indication for this examination in [facility]: Hypoxia; acute hypoxic and hypercapnic respiratory failure COMPARISON: XR CHEST PA AND LATERAL 2 VIEWS ; CT CHEST PULMONARY ANGIOGRAM (ACUTE) FINDINGS: Devices/Tubes/Lines: None. Lungs: There is new focal increased opacity at the right lung base. There is no left-sided consolidation. There is no overt pulmonary edema. Pleura: No pleural effusion or pneumothorax. Heart/Mediastinum: Stable in size and contour are not overtly enlarged. There are mild atherosclerotic calcifications of the aortic arch. Bones/Soft Tissues: Mild multilevel degenerative changes are noted. Procedure Note Rodrick Gill MD - 02/07/2025 XR CHEST 1 VIEW Referring clinician's provided indication for this examination in [facility]:Hypoxia; acute hypoxic and hypercapnic respiratory failure COMPARISON: XR CHEST PA AND LATERAL 2 VIEWS ; CT CHESTPULMONARY ANGIOGRAM (ACUTE) FINDINGS: Devices/Tubes/Lines: None. Lungs: There is new focal increased opacity at the right lung base. Thereis no left-sided consolidation. There is no overt pulmonary edema. Pleura: No pleural effusion or pneumothorax. Heart/Mediastinum: Stable in size and contour are not overtly enlarged.There are mild atherosclerotic calcifications of the aortic arch. Bones/Soft Tissues: Mild multilevel degenerative changes are noted. IMPRESSION: New focal increased opacity at the right lung base is nonspecific and maybe due to atelectasis with pneumonia/aspiration not excluded. Follow-up isadvised. us Bill Baird MD IMG XR CHEST Final Result * (ABNORMAL) Arterial Blood Gas (ABG) (02/07/2025 9:09 AM EST) Only the most recent of3 resultswithin the time period is included. FiO2 36 % 02/07/2025 9:22 AM [facility] O2 Flow (L/min) 4.0 L/min 9:22 AM [facility] pH, Arterial 7.37 7.35 - 7.45 02/07/2025 9:22 AM [facility] pCO2, Arterial 53(H) 35 - 45 mm[Hg] 02/07/2025 9:22 AM [facility] pO2, Arterial 52(L) 80 - 105 mm[Hg] 02/07/2025 9:22 AM [facility] Bicarbonate (HCO3) 30(H) 22 - 26 mmol/L 02/07/2025 9:22 AM [facility] Base Excess 3.4(H) -3.0 - 3.0 mmol/L 02/07/2025 9:22 AM [facility] Oxygen Saturation, Arterial 87.0(L) 95.0 - 98.0 % 02/07/2025 9:22 AM [facility] Blood (Blood, Arterial) Arterial Puncture / Unknown 02/07/2025 9:09 AM EST 02/07/2025 9:13 AM EST us Monie Coy PA-C, MS LAB BLOOD BKR ORD ERABLES Final Result [address] [id number] * Lab Add-On (02/07/2025 8:50 AM EST) Only the most recent of2 resultswithin the time period is included. Specimen Date/Time 02/0702/07/2025 9:08 AM [facility] Test Requested am cortisol 9:08 AM [facility] Specimen Description 02/07/2025 9:08 AM [facility] Comments 02/07/2025 9:08 AM [facility] Was this request processed? Yes 02/07/2025 9:08 AM [facility] Other (Other) 02/07/2025 8:5 0 AM EST 02/07/2025 8:50 AM EST us Monie Coy PA-C, MS LAB GENERAL ORDER JANELLE Final Result [facility] [address] [place], [place] [id number] * (ABNORMAL) Comprehensive Metabolic Panel (CMP) (02/07/2025 3:52 AM EST) Only the most recent of2 resultswithin the time period is included. Sodium 127(L) 136 - 145 mmol/L 02/07/2025 4:47 AM [facility] Potassium 5.2(H) 3.4 - 5.1 mmol/L 02/07/2025 4:47 AM [facility] Chloride 89(L) 98 - 107 mmol/L 02/07/2025 4:47 AM [facility] CO2 32(H) 20 - 31 mmol/L 02/07/2025 4:47 AM [facility] Anion Gap 6 3 - 17 mmol/L 02/07/2025 4:47 AM [facility] BUN 19 6 - 23 mg/dL 02/07/2025 4:47 AM [facility] Creatinine 0.50(L) 0.60 - 1.30 mg/dL 02/07/2025 4:47 AM [facility] eGFR 115 >59 mL/min/1.7 3m2 02/07/2025 4:47 AM [facility] Comment:Estimated glomerular filtration rate calculated using the CKD-EPI refit equation. Glucose 255(H) 70 - 99 mg/dL 02/07/2025 4:47 AM [facility] Calcium 9.1 8.5 - 10.5 mg/dL 02/07/2025 4:47 AM [facility] AST 12 <40 U/L 02/07/2025 4:47 AM [facility] ALT 22 <50 U/L 02/07/2025 4:47 AM [facility] Alkaline Phosphatase 57 40 - 130 U/L 02/07/2025 4:47 AM [facility] Bilirubin, Total 0.4 0.0 - 1.2 mg/dL 02/07/2025 4:47 AM [facility] Total Protein 7.5 6.4 - 8.3 g/dL 02/07/2025 4:47 AM [facility] Albumin 3.7 3.5 - 5.2 g/dL 02/07/2025 4:47 AM [facility] Globulin 3.8 1.9 - 4.1 g/dL 02/07/2025 4:47 AM [facility] Blood (Blood) Venipuncture / Unknown 02/07/2025 3:52 AM EST 02/07/2025 4:20 AM EST us Radha Bettencourt DO, MPH LAB BLOOD BKR O RDERABLES Final Result [address] [address] * Cortisol (02/07/2025 3:52 AM EST) Cortisol 2.9 See comment ug/dL 02/07/2025 9:46 AM [facility] Comment: NORMALS: 8AM-12PM = 5-25 ug/dL 12PM-8PM = 5-15 ug/dL 8PM-8AM = <10 ug/dL Cortisol levels may be affected by a variety of factors and should be interpreted in the context of the individual patient. A known interferent in this immunoassay is prednisolone (results may be falsely high by 5-8 %). Fludrocortisone (Florinef, 9-alpha fluorocortisol) does not interfere. Blood (Blood) Venipuncture / Unknown 02/07/2025 3:52 AM EST 02/07/2025 4:20 AM EST Monie Coy PA-C, MS LAB BLOOD BKR ORD ERABLES Final Result Performing Organization Address [facility]/ZIP Co de Phone Number [address] [address] * MRSA NASAL SCREEN, PCR (02/06/2025 3:27 PM EST) Pathologist [facility] MRSA PCR Screen Negative for MRSA Negative for MRSA 02/06/2025 4:57 PM EST [facility] Swab (Anterior Nares) Non-Blood Collection / Unknown 02/06/2025 3:27 PM EST 02/06/2025 3:36 PM EST Monie Coy PA-C, MS LAB GENERAL ORDER JANELLE Final Result Performing Organization Address [facility] de Phone Number [address] [address] * SARS-CoV-2, PCR (02/06/2025 6:41 AM EST) [facility] SARS-CoV-2 RNA PCR Not Detected Not Detected 02/06/2025 7:30 AM EST [facility] Swab (Nasopharynx, Bilateral) Non-Blood Collection / Unknown 02/06/2025 6:41 AM EST 02/06/2025 6:50 AM EST Fabiana Salas MD LAB GENERAL ORDERABLES Lelo l Result Performing Organization Address [facility]/ZIP Co de Phone Number [address] [address] * Symptomatic Respiratory Virus Testing Panel (ED/IP) (02/06/2025 6:41 AM EST) Only the most recent of2 resultswithin the time period is included. Pathologist [facility] SARS Comment 02/06/2025 8:20 AM EST [facility] Comment:This test automatica lly orders a COVID-19 PCR and may add Flu, RSV, or other viral tests based on patient clinical factors and site protocols. Results will appear below and separately in chart review when available. Swab (Nasopharynx, Bilateral) Non-Blood Collection / Unknown 02/06/2025 6:41 AM EST 02/06/2025 6:50 AM EST Fabiana Salas MD LAB GENERAL ORDERABLES Lelo archer Result Performing Organization Address [facility]/ZIP Co de Phone Number [address] [address] * (ABNORMAL) Hemoglobin A1c (02/06/2025 6:01 AM EST) Hemoglobin A1c 8.3(H) 4.3 - 5.6 % 02/06/2025 12:24 PM EST [facility] Calculated Mean Blood Glucose 192 mg/dL 02/06/2025 12:24 PM EST [facility] Comment:There is no [facility] normal range for the Estimated Average Glucose (EAG). However, a HbA1c of 5.6% (upper limit of normal) represents an EAG of 114 mg/dL. The diagnostic HbA1c level for diabetes is greater than or equal to 6.5%, which represents an EAG greater than or equal to 140 mg/dL. Blood (Blood) Venipuncture / Unknown 02/06/2025 6:01 AM EST 02/06/2025 6:24 AM EST Monie Coy PA-C, MS LAB BLOOD BKR ORD ERABLES Final Result Performing Organization Address [facility] Co de Phone Number [address] [address] * ECG 12-LEAD (02/04/2025 10:27 PM EST) Only the most recent of2 resultswithin the time period is included. Ventricular Rate EKG/MIN 111 BPM [facility] Atrial Rate 111 BPM [facility] WV Interval 134 ms [facility] QRS Duration 136 ms [facility] QT Interval 352 ms [facility] QTC Interval 478 ms [facility] P [place] 62 degrees [facility] R Wave [place] 53 degrees [facility] T Wave [place] 25 degrees [facility] 02/04/2025 10:2 7 PM EST 02/06/2025 8:59 AM EST Narrative [facility] - 02/06/2025 8:59 AM EST Sinus tachycardia with Premature atrial complexes with Aberrant conduction Right bundle branch block Abnormal ECG When compared with ECG of 03-Feb-2025 18:37, Premature ventricular complexes are no longer Present Aberrant conduction is now Present T wave inversion no longer evident in Anterior leads Confirmed by Tawanda Wells ([id number]) on 02/06/2025 8:59:26 AM us Fabiana Salas MD ECG ORDERABLES Final Resul t [facility] * CT CHEST PULMONARY ANGIOGRAM (ACUTE) (02/03/2025 9:40 PM EST) Anatomical Region Laterality Modality Chest, Thoracic Vasculature Comp uted Tomography 02/03/2025 10:5 7 PM EST Impressions 02/03/2025 11:05 PM EST 1. No pulmonary embolism within the limitation of respiratory motion. 2. Moderate emphysema. Narrative 02/03/2025 11:[address] CHEST PULMONARY ANGIOGRAM (ACUTE) Referring clinician's provided indication for this examination in Epic: * PE suspected, high prob TECHNIQUE: Multidetector CT pulmonary angiography was performed after administration of intravenous contrast using tailored dose modulation techniques. 3D angiographic postprocessing techniques were acquired in the form of axial maximum intensity projection images (MIPS). COMPARISON: None FINDINGS: Pulmonary Angiogram: The pulmonary arteries are well opacified. There is no pulmonary embolus. However respiratory motion limits evaluation of some of the segmental and subsegmental branches. Devices/Tubes/Lines: None. Lungs: Respiratory motion limits evaluation for pulmonary nodules. No consolidation. Mild dependent atelectasis in the right lower lobe. Upper lobe predominant moderate centrilobular emphysema. Mild diffuse bronchial wall thickening. Pleura: No pleural effusion or pneumothorax. Mediastinum: Heart size is normal. No pericardial effusion. Mild amount of coronary calcifications. No thyroid nodules meeting size criteria for follow up. Lymph Nodes: No enlarged supraclavicular, axillary, mediastinal, or hilar lymph nodes. Upper Abdomen: No abnormality in the visualized upper abdomen. Chest Wall: No chest wall mass. Bones: No significant abnormality. Procedure Note Jenny Oswald MD - 02/03/2025 CT CHEST PULMONARY ANGIOGRAM (ACUTE) Referring clinician's provided indication for this examination in Epic: *PE suspected, high prob TECHNIQUE: Multidetector CT pulmonary angiography was performed afteradministration of intravenous contrast using tailored dose modulationtechniques. 3D angiographic postprocessing techniques were acquired in theform of axial maximum intensity projection images (MIPS). COMPARISON: None FINDINGS: Pulmonary Angiogram: The pulmonary arteries are well opacified. There is no pulmonary embolus.However respiratory motion limits evaluation of some of the segmental andsubsegmental branches. Devices/Tubes/Lines: None. Lungs: Respiratory motion limits evaluation for pulmonary nodules. Noconsolidation. Mild dependent atelectasis in the right lower lobe. Upperlobe predominant moderate centrilobular emphysema. Mild diffuse bronchialwall thickening. Pleura: No pleural effusion or pneumothorax. Mediastinum: Heart size is normal. No pericardial effusion. Mild amount ofcoronary calcifications. No thyroid nodules meeting size criteria forfollow up. Lymph Nodes: No enlarged supraclavicular, axillary, mediastinal, or hilarlymph nodes. Upper Abdomen: No abnormality in the visualized upper abdomen. Chest Wall: No chest wall mass. Bones: No significant abnormality. IMPRESSION: 1. No pulmonary embolism within the limitation of respiratory motion. 2. Moderate emphysema. Rafi Rojas MD IM CT CHEST F inal Result * (ABNORMAL) D-Dimer (02/03/2025 9:12 PM EST) D-Dimer 558(H) <500 ng/mL FEU 02/03/2025 9:30 PM EST [facility] Comment:A negative D-dimer r esult (at a cut off of 500 ng/mL FEU) when combined with a clinical assessment of low pretest probability has been shown to have a high negative predictive value for DVT or PE. Clinical correlation is required. Blood (Blood) Venipuncture / Unknown 02/03/2025 9:12 PM EST 02/03/2025 9:17 PM EST Rafi Rojas MD LAB BLOOD BKR ORD ERABLES Final Result Performing Organization Address City/[facility]/ZIP Co de Phone Number [address] [address] * (ABNORMAL) Venous Blood Gas (VBG) (02/03/2025 9:12 PM EST) Pathologist [facility] pH, Venous 7.34 7.31 - 7.41 02/03/2025 9:19 PM [facility] pCO2, Venous 58(H) 35 - 45 mm[Hg] 02/03/2025 9:19 PM [facility] pO2, Venous 72(H) 35 - 40 mm[Hg] 02/03/2025 9:19 PM [facility] Base Excess 3.5(H) -3.0 - 3.0 mmol/L 02/03/2025 9:19 PM [facility] Bicarbonate (HCO3) 31(H) 23 - 28 mmol/L 02/03/2025 9:19 PM [facility] Oxygen Saturation, Venous 94.6(H) 60.0 - 80.0 % 02/03/2025 9:19 PM [facility] Blood (Blood, Venous) Venipuncture / Unknown 02/03/2025 9:12 PM EST 02/03/2025 9:17 PM EST Rafi Rojas MD LAB BLOOD BKR ORD ERABLES Final Result Performing Organization Address City/[facility]/ZIP Co de Phone Number [address] [address] * Troponin (02/03/2025 8:17 PM EST) Only the most recent of2 resultswithin the time period is included. Troponin-T HS Gen5 7 0 - 14 ng/L 02/03/2025 8:39 PM EST [facility] Blood (Blood) Venipuncture / Unknown 02/03/2025 8:17 PM EST 02/03/2025 8:20 PM EST us Harmeet Zhang MD LAB BLOOD BKR ORDERABLES F inal Result [address] [address] * XR CHEST PA AND LATERAL 2 VIEWS (02/03/2025 6:48 PM EST) Anatomical Region Laterality Modality Chest Computed Radiogr aphy 02/03/2025 7:07 PM EST Impressions 02/03/2025 7:08 PM EST Bilateral lower lobe atelectasis. Nodular opacities on the lateral exam may be due to vascular congestion. Follow-up evaluation with chest CT is recommended. Narrative 02/03/2025 7:08 PM EST XR CHEST PA AND LATERAL 2 VIEWS Referring clinician's provided indication for this examination in [facility]: Dyspnea (Shortness of Breath) COMPARISON: XR CHEST 1 VIEW FINDINGS: Devices/Tubes/Lines: None. Lungs: Bilateral lower lobe atelectasis. Scattered bilateral nodular opacities on the lateral exam may be due to vascular congestion. Pleura: Density at the right lung base could be pleural calcification. No pleural effusion or pneumothorax. Heart/Mediastinum: Mild cardiac silhouette enlargement. Bones/Soft Tissues: No acute osseous abnormality. Procedure Note Zara Simmons MD, PhD - 02/03/2025 XR CHEST PA AND LATERAL 2 VIEWS Referring clinician's provided indication for this examination in [facility]:Dyspnea (Shortness of Breath) COMPARISON: XR CHEST 1 VIEW FINDINGS: Devices/Tubes/Lines: None. Lungs: Bilateral lower lobe atelectasis. Scattered bilateral nodularopacities on the lateral exam may be due to vascular congestion. Pleura: Density at the right lung base could be pleural calcification. Nopleural effusion or pneumothorax. Heart/Mediastinum: Mild cardiac silhouette enlargement. Bones/Soft Tissues: No acute osseous abnormality. IMPRESSION: Bilateral lower lobe atelectasis. Nodular opacities on the lateral exammay be due to vascular congestion. Follow-up evaluation with chest CT isrecommended. Harmeet Zhang MD IMG XR CHEST Final Resu lt * SARS-CoV-2, INFLUENZA A/B, PCR (02/03/2025 6:40 PM EST) SARS-CoV-2 RNA PCR Not Detected Not Detected 02/03/2025 7:15 PM EST [facility] Influenza A PCR Not Detected Not Detected 02/03/2025 7:15 PM EST [facility] Influenza B PCR Not Detected Not Detected 02/03/2025 7:15 PM EST [facility] Swab (Nasopharynx, Bilateral) Non-Blood Collection / Unknown 02/03/2025 6:40 PM EST 02/03/2025 6:45 PM EST Harmeet Zhang MD LAB GENERAL ORDERABLES Fin al Result [facility] [address] [place] [address] from Last 3 Months Insurance MEDICARE PART A & B Member Subscriber Plan / Payer (Ef fective 1997-Present) Name:Curry Philippe Member ID:[id number] Relation to Subscriber:Self Name:Curry Philippe Subscriber ID:[id number] Payer ID:[id number] Group ID:Not on file Type:Medicare Address: [facility] [employer] [facility] [address] [place] [address] [place] MED[place] PART A & B HEALTH MEDICARE PART A & B Member Subscriber Plan / Payer (Ef fective 1997-) Name:Curry Philippe Member ID:[id number] Relation to Subscriber:Self Name:Curry Philippe Subscriber ID:[id number] Payer ID:[id number] Group ID:Not on file Type:Medicare Address: Whatever [address] [place] [id number] [place], [place] [address]HEALTH MEDICARE PART A & [place] [address] MEDICARE PART A & B [facility] MEDIC[facility] PART A & B [facility] MEDICARE PART A & B [facility] A & [place] [place] [address] MEDICARE PART A & B [facility] Advance Directives For more information, please contact: [phone] (9AM - 5PM [place], Thursday-Thursday) Documents on File Type Date Recorded Patient Hide Shaker Expl anation Healthcare Proxy 06/13/2022 3:05 PM * Full Code (Latest Code Status on File) Date Activated Date Inactivated Comments 02/04/2025 12:22 AM Question Answer Comments Code Status Confirmed With: Patient Code Status Communicated To: Inpatient Attending * Full Code Date Activated Date Inactivated Comments 03/04/2023 3:50 AM 02/04/2025 12:22 AM Question Answer Comments Code Status Confirmed With: Patient * Full Code Date Activated Date Inactivated Comments 06/09/2022 8:53 PM 03/04/2023 3:50 AM Question Answer Comments Code Status Confirmed With: Patient * Full Code Date Activated Date Inactivated Comments 10/17/2020 5:29 PM 06/09/2022 8:53 PM Question Answer Comments Code Status Confirmed With: Family Care Teams Drywall Mechanic Relationship Specialty Start Date End Date Carlo Cole NP [address] [place] [address] [address] [place] [address] PCP - General Nurse Practitioner 02/03/25 Additional Source Comments The information contained in this document represents components of the legal health record. It is not the complete legal health record.[facility]
--- OUTSIDE RECORDS SUMMARY | 2025-02-28 12:24 | XMS_ITS | Encounter Summary ---
Author Organization [facility] [place] [facility] Address [address] [place] [address] [place] [phone] Phone Care Team Providers Care Acquisitions Logistics Analyst Name Role Phone Jose A Alves MD Primary Care Provider [phone] Carlo Cole NP Primary Care Provider Encounter Details Date Type Department Care Team (Late st Contact Info) Description 03/06/2023 Procedure Pass [facility] [address] [place] [address] Social History Tobacco Use Types Packs/Day Years [...] PM EST documented as of this encounter Plan of Treatment Upcoming Encounters Date Type Department Care Team (Late st Contact Info) Description 03/07/2025 1:30 AM EST Appointment [facility] [address] [place] [phone] Courtney Armando RN [address] [place] [phone] 03/14/2025 1:30 AM EST Appointment [facility] [address] [place] [phone] Courtney Armando RN [address] [place] [phone] 03/21/2025 1:00 AM EST Appointment [facility] [address] [place] [phone] Courtney Armando RN [address] [place] [address] 03/28/2025 1:00 AM EST Appointment [facility] [address] [place] [phone] Courtney Armando, SAM [address] [place] [address] 04/04/2025 1:00 AM EST Appointment [facility] [address] [place] [phone] Courtney Armando, RN [address] [place] [address] 04/11/2025 1:30 AM EST Appointment [facility] [address] [place] [phone] Courtney Armando, RN [address] [place] [address] documented as of this encounter Visit Diagnoses Not on filedocumented in this encounter Additional Health Concerns Infection Onset Date Last Indicated Resolved Time Resp-Risk Comment:Per note documentation 02/03/2025 02/06/2025 7:35 AM EST documented as of this encounter Care Teams Acquisitions Logistics Analyst Relationship Specialty Start Date End Date Jose A Alves MD [address] [place] [address] Dr Murphy [address] [place] [address] PCP - General Internal Medicine 12/14/19 02/02/25 Carlo Cole NP [address] [place] [address] Dr Allen [address] [place] [address] PCP - General Nurse Practitioner 02/03/25 documented as of this encounter Additional Source Comments The information contained in this document represents components of the legal health record. It is not the complete legal health record.[facility]
--- OUTSIDE RECORDS SUMMARY | 2025-02-28 12:24 | XMS_ITS | Encounter Summary ---
Author Organization [facility] Address [address] [place] [address] [place] [phone] Phone Care Team Providers Care Car Unloader Name Role Phone Carlo Coleton AIR CONDITIONING INSTALLER Primary Care Provider Encounter Details Date Type Department Care Team (Late st Contact Info) Description 02/11/2025 Procedure Pass [facility], Ct Scan - [address] [address] Social History Tobacco Use Types Packs/Day Years [...] your housing situation today? I have irving sing 02/03/2025 How many times have you move [...] Info) Description 03/07/2025 1:30 AM EST Appointment [facility] [address] [place] [address] Courtney Armando RN [address] [place] [address] [email or web address] 03/14/2025 1:30 AM EST Appointment [facility] [address] [place], [place] [phone] Courtney Armando RN [address] [place] [address] [email or web address] 03/21/2025 1:00 AM EST Appointment [facility] [address] [place] [phone] Courtney Armando, SAM [address] [place] [address] [email or web address] 03/28/2025 1:00 AM EST Appointment [facility] [address] [place] [phone] Courtney Armando, SAM [address] [place] [address] [email or web address] 04/04/2025 1:00 AM EST Appointment [facility] [address] [place] [phone] Courtney Armando RN [address] [place] [address] [email or web address] 04/11/2025 1:30 AM EST Appointment [facility] [address] [place] [phone] Courtney Armando, SAM [address] [place] [phone] [email or web address] documented as of this encounter Visit Diagnoses Not on filedocumented in this encounter Care Teams Car Unloader Relationship Specialty Start Date End Date Carlo Cole NP [address] [place] [address] [place] [phone] PCP - General Nurse Practitioner 02/03/25 documented as of this encounter Additional Source Comments The information contained in this document represents components of the legal health record. It is not the complete legal health record.[facility]
--- OUTSIDE RECORDS SUMMARY | 2025-02-28 12:24 | XMS_ITS | Encounter Summary ---
Author Organization [facility] Address [address] [place] [address] [place] [phone] Phone Care Team Providers Care Social Services Aide Name Role Phone Carlo Cole Christopher CONTRACT TECHNICIAN Primary Care Provider Encounter Details Date Type Department Care Team (Late st Contact Info) Description 02/03/2025 Procedure Pass [facility], Ct Scan - [address] [address] Social History Tobacco Use Types Packs/Day Years [...] EST Appointment [facility] [address] [place] [address] Courtney Armando RN [address] [place] [address] 03/14/2025 1:30 AM EST Appointment [facility] [address] [place], [place] [phone] Courtney Armando RN [address] [place] [address] 03/21/2025 1:00 AM EST Appointment [facility] [address] [place] [phone] Courtney Armando, SAM [address] [place] [address] 03/28/2025 1:00 AM EST Appointment [facility] [address] [place] [phone] Courtney Armando, SAM [address] [place] [address] 04/04/2025 1:00 AM EST Appointment [facility] [address] [place] [phone] Courtney Armando, SAM [address] [place] [address] 04/11/2025 1:30 AM EST Appointment [facility] [address] [place] [phone] Courtney Armando, SAM [address] [place] [phone] documented as of this encounter Visit Diagnoses Not on filedocumented in this encounter Additional Health Concerns Infection Onset Date Last Indicated Resolved Time Resp-Risk Comment:Per note documentation 02/03/2025 02/06/2025 7:35 AM EST documented as of this encounter Care Teams Social Services Aide Relationship Specialty Start Date End Date Carlo Cole NP [address] [place] [address] [place] [id number] PCP - General Nurse Practitioner 02/03/25 documented as of this encounter Additional Source Comments The information contained in this document represents components of the legal health record. It is not the complete legal health record.[facility]
--- OUTSIDE RECORDS SUMMARY | 2025-02-28 12:24 | XMS_ITS | Encounter Summary ---
Author Organization [facility] Address [address] [facility] [address] [place] [address] Phone Care Team Providers Care Passenger Service Manager Name Role Phone Carlo Cole REIMBURSEMENT COORDINATOR Primary Care Provider Encounter Details Date Type Department Care Team (Late st Contact Info) Description 02/24/2025 Episode Documentatio n Update [facility] [address] [place] [phone] Deann Peña [address] [place] [address] [email or web address] Social History Tobacco Use Types Packs/Day Years [...] Description 03/07/2025 1:30 AM EST Appointment [facility] [address] [place], [place] [phone] Courtney Armando RN [address] [place] [address] 03/14/2025 1:30 AM EST Appointment [facility] [address] [place] [phone] Courtney Armando RN [address] [place] [address] [place] [address] 03/21/2025 1:00 AM EST Appointment [facility] [address] [place] [phone] Courtney Armando, RN [address] [place] [address] 03/28/2025 1:00 AM EST Appointment [facility] [address] [place] [phone] Courtney Armando, SAM [address] [place] [address] 04/04/2025 1:00 AM EST Appointment [facility] [address] [place] [phone] Courtney Armando, RN [address] [place] [address] 04/11/2025 1:30 AM EST Appointment [facility] [address] [place] [phone] Courtney Armando, RN [address] [place] [address] documented as of this encounter Visit Diagnoses Not on filedocumented in this encounter Care Teams Passenger Service Manager Relationship Specialty Start Date End Date Carlo Cole NP [address] [place] [address] [address] [place] [address] PCP - General Nurse Practitioner 02/03/25 documented as of this encounter Additional Source Comments The information contained in this document represents components of the legal health record. It is not the complete legal health record.[facility]
== END 2025-02-28 11:41 | disposition home or self-care (01) ==
LOC: HO.ENCR 11:04
PROVIDERS: Visit Provider Physician Assistant Medical
DX: E11.69 Type 2 diabetes mellitus with other specified complication (principal); E66.9 Obesity, unspecified; I10 Essential (primary) hypertension; F81.9 Developmental disorder of scholastic skills, unspecified

== ENCOUNTER → 2025-02-28 11:03 | Outpatient (BNVA) | payer MEDICARE, MEDICAID, SELFPAY | PROVIDERS: Visit Provider Physician Assistant Medical | DX: E11.69 Type 2 diabetes mellitus with other specified complication (principal); I10 Essential (primary) hypertension; F81.9 Developmental disorder of scholastic skills, unspecified | CPT/HCPCS: 82947; 99212 ==